=== PATIENT | female | born 1955 | race African-American/Black ===

== ENCOUNTER 2019-11-29 22:47 | Emergency (ER) | payer OTHER, SELFPAY ==
[2019-11-29 22:48] VITALS: BP 176/87; PULSE 69; RESP 18; TEMP 36.7; O2SAT 99
--- NOTE | 2019-11-29 23:09 | ED.EXTPRO ---
HPI - Extremity Problem General Chief complaint: Extremity Problem,Nontraumatic Stated complaint: NECK/SHOULDER Time Seen by Provider: 11/29/19 22:53 History of Present Illness HPI Narrative: Right sided neck pain for the past few days. Worse with certain positions. Prevents her from turning her head to the right. She was not able to sleep tonight due to the pain. She reports bilateral hand numbness, chronic. No weakness. No injury. Related Data Home Medications Medication Instructions Recorded Confirmed aspirin [Aspirin Low Dose] 81 mg PO DAILY 12/30/18 12/30/18 atorvastatin 10 mg PO DAILY 12/30/18 12/30/18 furosemide 40 mg PO DAILY 12/30/18 12/30/18 isosorbide mononitrate 30 mg PO DAILY 12/30/18 12/30/18 lisinopril 10 mg PO BID 12/30/18 12/30/18 Allergies Allergy/AdvReac Type Severity Reaction Status Date / Time No Known Allergies Allergy Verified 11/29/19 22:55 Review of Systems Review of Systems: All systems reviewed & are unremarkable except as noted in HPI and below Constitutional: Constitutional: Denies fever(s) Cardiovascular: Cardiovascular: Denies chest pain Respiratory: Respiratory: Denies dyspnea Neurologic: Reports vertigo, Reports numbness and Denies weakness PMFSH Past Medical History Medical History Healthy adult Surgical History Surgical History No pertinent past surgical history Social History Social History Smoking status: Never smoker Gender identity (if verbalized by the patient): Female Exam Const: General: no acute distress and alert Nutritional Appearance: obese Orientation/consciousness: patient oriented x3 HENMT: Head: normal to inspection Neck: Neck: normal visual inspection and no lymphadenopathy Chest: Chest palpation & inspection: no tenderness Resp: Effort & Inspection: normal respiratory effort Auscultation: clear to auscultation bilaterally, no rales, no rhonchi and no wheezes Cardio: Jugular venous distension: no JVD Rate: regular rate Rhythm: regular rhythm Heart sounds: no murmurs GI: Inspection: non-distended GI Palp: Yes Soft to palpation and No Tenderness to palpation present (GI) Back/Spine/Pelvis: Other: Right cervical paraspinal and trapezius tenderness Skin: General skin exam: normal color Neuro: General: patient oriented x3, moves all extremities and CN's II-XI intact bilaterally Speech: normal speech Extrem: General: no edema Psych: Appearance: well kempt Affect: normal affect Course Vital Signs Vital signs: Vital Signs Temperature 36.7 C 11/29/19 22:48 Pulse Rate 69 11/29/19 22:48 Respiratory Rate 18 11/29/19 22:48 Blood Pressure 176/87 H 11/29/19 22:48 Pulse Oximetry 99 11/29/19 22:48 Temperature 36.7 C 11/29/19 22:48 Pulse Rate 69 11/29/19 22:48 Respiratory Rate 18 11/29/19 22:48 Blood Pressure 176/87 H 11/29/19 22:48 Pulse Oximetry 99 11/29/19 22:48 MDM - Extremity (Nontraumatic) MDM Narrative Medical decision making narrative: Musculoskeletal neck pain with obvious spasm. I will treat acutely with valium and toradol and provide a prescription for flexeril. Medical Records Attestation: I reviewed the patient's medical records. Discharge Plan Discharge Clinical Impression: Torticollis Patient Disposition: Home, Self-Care Condition: Improved Instructions: Spasmodic Torticollis (ED) Prescriptions: New cyclobenzaprine 10 mg tablet 10 mg PO TID PRN (Reason: muscle spasm) Qty: 20 RF: 0 No Action furosemide 40 mg Tablet 40 mg PO DAILY RF: 0 atorvastatin 10 mg Tablet 10 mg PO DAILY RF: 0 isosorbide mononitrate 30 mg Tablet Extended Release 24 Hr 30 mg PO DAILY RF: 0 aspirin [Aspirin Low Dose] 81 mg Tablet,Delayed Release (Dr/Ec) 81 mg PO DAILY RF: 0 lisinopril
[2019-11-29] MEDS: KETOROLAC (*BKC) 60 MG/2 ML VIAL IM (23:13)
[2019-11-29] MEDS: diazePAM INJ (*CRX) 10 MG/2 ML SYRINGE 5 MG IM (23:14)
== END 2019-11-30 00:28 | disposition home or self-care (01) ==
LOC: ANHED 23:45
PROVIDERS: Emergency Provider Emergency Medicine
DX: M43.6 Torticollis (principal)
CPT/HCPCS: 96372; 99284; J1885; J3360

== ENCOUNTER 2020-08-27 12:16 | Emergency (ER) | payer MEDICARE, MEDICAID, SELFPAY ==
--- NOTE | ~2020-08-27 | XR_ITS ---
EXAMINATION: XR ankle RT 2V DATE: 08/27/2020 12:36 INDICATION: Right ankle pain. TECHNIQUE: 2 views of right ankle were obtained. COMPARISON: None. FINDINGS: Bone alignment is normal. No fracture. There is mild midfoot osteoarthritis. There are enth esophytes at the posterior and plantar aspects of calcaneal tuberosity. There is ankle soft tissue sw elling. IMPRESSION: 1. Mild midfoot osteoarthritis. Reviewed, dictated and finalized at location A.
[2020-08-27 12:16] VITALS: BP 167/98; PULSE 70; RESP 18; TEMP 36.1; O2SAT 100
[2020-08-27] MEDS: IBUPROFEN 600 MG TABLET PO (13:15)
--- NOTE | 2020-08-27 13:31 | ED.LOWEXIN ---
HPI - Extremity Injury (Lower) General Chief Complaint: Extremity Injury, Lower Stated Complaint: right ankle issues Time Seen by Provider: 08/27/20 12:23 History of Present Illness HPI Narrative: Patient is a 65-year-old female who presents ER with ankle swelling and pain. Ongoing over the last week. No fevers or chills or sweats. No known trauma. Pain increases with walking. Has been using a cane to ambulate. No redness. Pain improves mildly with topical pain ointments. Related Data Home Medications Medication Instructions Recorded Confirmed aspirin [Aspirin Low Dose] 81 mg PO DAILY 12/30/18 12/30/18 atorvastatin 10 mg PO DAILY 12/30/18 12/30/18 furosemide 40 mg PO DAILY 12/30/18 12/30/18 isosorbide mononitrate 30 mg PO DAILY 12/30/18 12/30/18 lisinopril 10 mg PO BID 12/30/18 12/30/18 Allergies Allergy/AdvReac Type Severity Reaction Status Date / Time No Known Allergies Allergy Verified 08/27/20 12:22 Review of Systems Constitutional: Constitutional: Denies chills, Denies fever(s) and Denies weakness Musculoskeletal: Musculoskeletal: Reports arthralgias, Reports joint swelling and Denies muscle cramps Neurologic: Denies focal weakness and Denies numbness PMFSH Past Medical History Medical History (Updated 08/27/20 @ 13:38 by Vito Seymour MD) CHF (congestive heart failure) Hyperlipidemia Hypertension Surgical History Surgical History No pertinent past surgical history Social History Social History Smoking status: Never smoker Gender identity (if verbalized by the patient): Female Exam Narrative: Exam Narrative: GENERAL: Well-appearing, well-nourished, and in no acute distress. HEAD: Normocephalic, atraumatic. EXTREMITIES: Normal range of motion. Swelling of right ankle medially with tenderness over the deltoid ligament. No redness. No bony tenderness. SKIN: Warm, dry, no rash. NEURO: Alert and oriented x3. PSYCH: Normal mood and affect. Course Course Emergency Course: Sprain versus arthritic flare. Recommend R.I.C.E. therapy and scheduled anti-inflammatories. Vital Signs Vital signs: Vital Signs Temperature 96.9 F L 08/27/20 12:16 Pulse Rate 70 08/27/20 12:16 Respiratory Rate 18 08/27/20 12:16 Blood Pressure 167/98 H 08/27/20 12:16 Pulse Oximetry 100 08/27/20 12:16 Temperature 96.9 F L 08/27/20 12:16 Pulse Rate 70 08/27/20 12:16 Respiratory Rate 18 08/27/20 12:16 Blood Pressure 167/98 H 08/27/20 12:16 Pulse Oximetry 100 08/27/20 12:16 MDM - Extremity Injury (Lower) Imaging Data Radiologist's impression: ITS Impressions Ankle X-Ray 08/27/20 12:40 IMPRESSION: 1. Mild midfoot osteoarthritis. Discharge Plan Discharge Clinical Impression: Ankle pain Patient Disposition: Home, Self-Care Condition: Stable Instructions: R.I.C.E. Treatment (ED) Additional Instructions: Return to the ER if your ankle becomes red and hot, you have fever over 100.4 ?F, you suffer new injury. Prescriptions: New ibuprofen 600 mg tablet 600 mg PO TID PRN (Reason: pain) Qty: 14 RF: 0 No Action furosemide 40 mg Tablet 40 mg PO DAILY RF: 0 atorvastatin 10 mg Tablet 10 mg PO DAILY RF: 0 isosorbide mononitrate 30 mg Tablet Extended Release 24 Hr 30 mg PO DAILY RF: 0 aspirin [Aspirin Low Dose] 81 mg Tablet,Delayed Release (Dr/Ec) 81 mg PO DAILY RF: 0 lisinopril 10 mg Tablet 10 mg PO BID RF: 0 meclizine 25 mg tablet 25 mg PO TID PRN (Reason: dizziness) Qty: 14 RF: 0 cyclobenzaprine 10 mg tablet 10 mg PO TID PRN (Reason: muscle spasm) Qty: 20 RF: 0 Follow-up/Referrals: Crystal Bustillos [Other] - 1 Week
== END 2020-08-27 13:57 | disposition home or self-care (01) ==
PROVIDERS: Emergency Provider Emergency Medicine
DX: M25.571 Pain in right ankle and joints of right foot (principal); I50.9 Heart failure, unspecified; I11.0 Hypertensive heart disease with heart failure; E78.5 Hyperlipidemia, unspecified; Z79.82 Long term (current) use of aspirin; M19.071 Primary osteoarthritis, right ankle and foot
CPT/HCPCS: 73600; 99283; A9270

== ENCOUNTER 2020-10-12 09:28 | Outpatient (CLI) | payer MEDICARE, MEDICAID, SELFPAY ==
[2020-10-12 11:06] LABS: Add Urine Microscopic? YES; Appearance Urine Clear (Clear); Bilirubin Urine Negative (Negative); Blood Urine Negative (Negative); Color Urine Straw (Yellow); Glucose Urine UA Negative (Negative); Ketones Urine Negative (Negative); Leukocyte Esterase Ur Trace LEU/UL (NEGATIVE); Mucus Urine Rare /lpf; Nitrate Urine Negative (Negative); Protein Urine Negative (Negative); RBC Urine 0-2 /hpf (0-2); Specific Grav Ur 1.008 (1.001-1.035); Squamous Epithelial Cell Urine Rare /hpf (Few); Urobilinogen Urine Negative mg/dL (<2.0); WBC Urine 0-3 /hpf (0-3)
== END 2020-10-12 09:29 | disposition home or self-care (01) ==
DX: R10.9 Unspecified abdominal pain (principal)
CPT/HCPCS: 81001

== ENCOUNTER 2020-10-27 13:46 | Outpatient (CLI) | payer MEDICARE, MEDICAID, SELFPAY | END 2020-10-27 13:47 | disposition home or self-care (01) | LOC: ANHAUDIO 13:47 | PROVIDERS: Visit Provider Otolaryngology | DX: H90.3 Sensorineural hearing loss, bilateral (principal) | CPT/HCPCS: 92552; 92556; 92567 ==

== ENCOUNTER 2020-12-27 11:00 | Outpatient (CLI) | payer MEDICARE, MEDICAID, SELFPAY ==
[2020-12-27 11:42] LABS: Anion Gap 4 mmol/L (8-16); Blood Urea Nitrogen 15 mg/dL (7-17); Calcium 9.8 mg/dL (8.4-10.2); Carbon Dioxide 31 mmol/L (22-30); Chloride 109 mmol/L (98-107); Estimated Glomerular Filt Rate > 60; Glucose 97 mg/dL (65-110); Magnesium 2.2 mg/dL (1.6-2.3); Potassium 4.2 mmol/L (3.4-5.0); Sodium 144 mmol/L (137-145)
== END 2020-12-27 11:01 | disposition home or self-care (01) ==
PROVIDERS: Visit Provider Specialist
DX: I50.22 Chronic systolic (congestive) heart failure (principal); I10 Essential (primary) hypertension
CPT/HCPCS: 36415; 80048; 83735

== ENCOUNTER 2022-02-17 10:56 | Emergency (ER) | payer MEDICARE, MEDICAID, SELFPAY ==
[2022-02-17 11:20] VITALS: BP 98/86; PULSE 71; RESP 18; TEMP 36.4; O2SAT 100
[2022-02-17] MEDS: HYDROcodone/acetaminophen (*CRX) 5-325 MG TABLET 1 TAB PO (12:32)
[2022-02-17 13:21] LABS: Influenza A QL RT-PCR Negative (Negative); Influenza B QL RT-PCR Negative (Negative); SARS-CoV-2 RNA PCR Negative
--- NOTE | 2022-02-17 14:27 | ED.EAR ---
HPI - Ear Problem General Chief complaint: Ear Stated complaint: left ear and neck pain Time Seen by Provider: 02/17/22 11:59 History of Present Illness HPI Narrative: Patient is a 66-year-old female who presents ER with left ear pain. Aching. Radiates into left neck and jaw. No chest pain or exertional component. Associate with sinus congestion. No dizziness. Related Data Home Medications Medication Instructions Recorded Confirmed aspirin 81 mg tablet,delayed 81 mg PO DAILY 12/30/18 12/30/18 release (Jeana Low Dose Aspirin) atorvastatin 10 mg tablet 10 mg PO DAILY 12/30/18 12/30/18 furosemide 40 mg tablet 40 mg PO DAILY 12/30/18 12/30/18 isosorbide mononitrate 30 mg 30 mg PO DAILY 12/30/18 12/30/18 tablet,extended release 24 hr lisinopril 10 mg tablet 10 mg PO BID 12/30/18 12/30/18 Allergies Allergy/AdvReac Type Severity Reaction Status Date / Time No Known Allergies Allergy Verified 08/27/20 12:22 Review of Systems Review of Systems: All systems reviewed & are unremarkable except as noted in HPI and below Constitutional: Constitutional: Denies chills, Denies fatigue and Denies fever(s) ENT: Denies dizziness, Reports nasal congestion and Denies sore throat Comments: Ear fullness Respiratory: Respiratory: Denies cough and Denies dyspnea Gastrointestinal: Gastrointestinal: Denies nausea and Denies vomiting PMFSH Past Medical History Medical History (Updated 02/17/22 @ 14:31 by Vito Seymour MD) CHF (congestive heart failure) Hyperlipidemia Hypertension Surgical History Surgical History No pertinent past surgical history Social History Social History Smoking status: Never smoker Gender identity (if verbalized by the patient): Female Exam Narrative: GENERAL: Well-appearing, well-nourished, and in no acute distress. HEAD: Normocephalic, atraumatic. EYES: PERRL and EOMI. ENT: Mucous membranes moist. Normal TMs bilaterally. NECK: Supple. Mild tenderness over left trapezius muscle. CHEST: Clear to auscultation. No respiratory distress. HEART: Regular rate and rhythm. Normal peripheral pulses. EXTREMITIES: Normal range of motion. No edema. NEURO: Alert and oriented x3. PSYCH: Normal mood and affect. Course Course Emergency Course: Areas manipulated and pressure release. Patient longer has pressure in her ear. Pain improved in the shoulder with [place]. Discharge home. Vital Signs Vital signs: Vital Signs Temperature 97.5 F L 02/17/22 11:20 Pulse Rate 71 02/17/22 11:20 Respiratory Rate 18 02/17/22 11:20 Blood Pressure 98/86 L 02/17/22 11:20 Pulse Oximetry 100 02/17/22 11:20 Oxygen Delivery Room Air 02/17/22 11:20 Temperature 97.5 F L 02/17/22 11:20 Pulse Rate 71 02/17/22 11:20 Respiratory Rate 18 02/17/22 11:20 Blood Pressure 98/86 L 02/17/22 11:20 Pulse Oximetry 100 02/17/22 11:20 Oxygen Delivery Room Air 02/17/22 11:20 Medical Decision Making Vital Signs Vital Signs: Vital Signs Temperature 97.5 F L 02/17/22 11:20 Pulse Rate 71 02/17/22 11:20 Respiratory Rate 18 02/17/22 11:20 Blood Pressure 98/86 L 02/17/22 11:20 Pulse Oximetry 100 02/17/22 11:20 Oxygen Delivery Room Air 02/17/22 11:20 Temperature 97.5 F L 02/17/22 11:20 Pulse Rate 71 02/17/22 11:20 Respiratory Rate 18 02/17/22 11:20 Blood Pressure 98/86 L 02/17/22 11:20 Pulse Oximetry 100 02/17/22 11:20 Oxygen Delivery Room Air 02/17/22 11:20 Lab Data Labs: Lab Results 02/17/22 Range/Units 12:35 Influenza A (RT-PCR) Negative (Negative) Influenza B (RT-PCR) Negative (Negative) SARS-CoV-2 RNA (RT-PCR) Negative Discharge Plan Discharge Clinical Impression: Otalgia, Cramp in muscle Patient Disposition: Home, Self-Care Condition: Stable Instructions: Earache (ED), Mu
== END 2022-02-17 15:13 | disposition home or self-care (01) ==
PROVIDERS: Emergency Provider Emergency Medicine
DX: H92.02 Otalgia, left ear (principal); R25.2 Cramp and spasm; Z20.822 Contact with and (suspected) exposure to COVID-19; I11.0 Hypertensive heart disease with heart failure; I50.9 Heart failure, unspecified; E78.5 Hyperlipidemia, unspecified
CPT/HCPCS: 87636; 99283; A9270

== ENCOUNTER 2022-02-21 10:39 | Emergency (ER) | payer MEDICARE, MEDICAID, SELFPAY ==
[2022-02-21 10:49] VITALS: BP 140/74; PULSE 77; RESP 16; TEMP 36.3; O2SAT 100
--- NOTE | 2022-02-21 10:59 | ED.URI ---
HPI - URI/Sore Throat General Chief Complaint: Upper Respiratory Infection Stated Complaint: Right Eye Irritation/ Sinus Time Seen by Provider: 02/21/22 10:55 Source: patient Mode of arrival: ambulatory Limitations: no limitations History of Present Illness HPI Narrative: Gretchen is a 66-year-old female patient presenting to the clinic today with complaints of right eye drainage and irritation as well as sinus pressure, nasal congestion, and headache. She reports the sinus symptoms have been going on for approximately 2 weeks however the eye drainage has only been going on for approximately 3 days. She denies any fever or chills. MD elicited complaint: rhinorrhea, nasal congestion, sinus pain and other ( conjunctivitis) Related Data Home Medications Medication Instructions Recorded Confirmed aspirin 81 mg tablet,delayed 81 mg PO DAILY 12/30/18 02/21/22 release (Jeana Low Dose Aspirin) atorvastatin 10 mg tablet 10 mg PO DAILY 12/30/18 02/21/22 furosemide 40 mg tablet 40 mg PO DAILY 12/30/18 02/21/22 isosorbide mononitrate 30 mg 30 mg PO DAILY 12/30/18 02/21/22 tablet,extended release 24 hr lisinopril 10 mg tablet 10 mg PO BID 12/30/18 02/21/22 Allergies Allergy/AdvReac Type Severity Reaction Status Date / Time No Known Allergies Allergy Verified 02/21/22 10:51 Review of Systems Review of Systems: Pertinent positives per HPI. Patient denies any fever, chills, rash, headache, visual changes, dizziness, cough, shortness of breath, chest pain, palpitations, nausea, vomiting, diarrhea, constipation, abdominal pain, or any urinary issues. PMF Past Medical History Medical History CHF (congestive heart failure) Hyperlipidemia Hypertension Surgical History Surgical History No pertinent past surgical history Social History Social History Smoking status: Never smoker Gender identity (if verbalized by the patient): Female Comments At the time of my signature, I reviewed and agree with the nursing past medical, surgical, social, and family history. There is no relevant family history pertinent to the patient complaint. Exam Narrative: General: Well-developed, well nourished, in no apparent distress Head: Normocephalic, atraumatic Eyes: Pupils equally round and reactive to light bilaterally, EOM intact, left sclera and conjunctive clear, right sclera and conjunctiva injected with yellow mucoid purulent discharge, left lids normal, right lids swelling Ears: TMs intact and clear, ear canals clear, no drainage, grossly hearing normal. Nose: Nares patent, green nasal drainage, moderate to severe inflammation, maxillary and frontal sinus tenderness. Mouth: Oral pharynx without lesions or masses, good dentition, MMM. postnasal drip Neck: Supple, trachea midline, no enlargement of anterior or posterior cervical nodes, no thyroid masses or goiter palpable. Cardio: Regular rate and rhythm, s1 and s2 normal, no murmur appreciated. Resp: Clear to auscultation bilaterally, no rhonchi, rales, wheezing or rubs Course Course Emergency Course: Portions of this record may have been created with voice recognition software. Level of Care: Express Care Visit Vital Signs Vital signs: Vital Signs Temperature 36.3 C L 02/21/22 10:49 Pulse Rate 77 02/21/22 10:49 Respiratory Rate 16 02/21/22 10:49 Blood Pressure 140/74 02/21/22 10:49 Pulse Oximetry 100 02/21/22 10:49 Oxygen Delivery Room Air 02/21/22 10:49 Temperature 36.3 C L 02/21/22 10:49 Pulse Rate 77 02/21/22 10:49 Respiratory Rate 16 02/21/22 10:49 Blood Pressure 140/74 02/21/22 10:49 Pulse Oximetry 100 02/21/22 10:49 Oxygen Delivery Room Air 02/21/22 10:49 Vital signs reviewed MDM - URI/Sore Throat Differential Diagnosis Diff
== END 2022-02-21 11:08 | disposition home or self-care (01) ==
PROVIDERS: Emergency Provider Nurse Practitioner Family
DX: J01.90 Acute sinusitis, unspecified (principal); H10.9 Unspecified conjunctivitis; I11.0 Hypertensive heart disease with heart failure; I50.9 Heart failure, unspecified; E78.5 Hyperlipidemia, unspecified
CPT/HCPCS: 99213; G0463

== ENCOUNTER 2022-04-23 11:33 | Emergency (ER) | payer MEDICARE, MEDICAID, SELFPAY ==
--- NOTE | ~2022-04-23 | XR_ITS ---
EXAMINATION: XR chest 1V portable INDICATION: Cough and congestion TECHNIQUE: Portable AP chest at 1305 hours COMPARISON: None available FINDINGS: There are mild diffuse airspace opacities of the lungs. No pleural effusion or pneumothorax . The cardiomediastinal silhouette is normal for technique. IMPRESSION: 1. Mild diffuse lung disease, consistent with atelectasis versus pneumonia versus pulmonary edema. Reviewed, dictated and finalized at location A. [employer] TECH IMPRESSION: 1. Mild diffuse lung disease, consistent with atelectasis versus pneumonia vers us pulmonary edema.
[2022-04-23 11:45] VITALS: BP 156/97; PULSE 72; RESP 20; TEMP 36.6; O2SAT 99
[2022-04-23 13:18] VITALS: O2SAT 98
--- NOTE | 2022-04-23 13:18 | ED.URI ---
HPI - URI/Sore Throat General Chief Complaint: Upper Respiratory Infection Stated Complaint: head congestion/cough Time Seen by Provider: 04/23/22 12:51 Source: patient, RN notes reviewed and old records reviewed Mode of arrival: ambulatory Limitations: no limitations History of Present Illness HPI Narrative: This is a 67 year old female with history of CHF and hyperlipidemia who presents for evaluation of sinus congestion and cough. She reports sinus congestion and pressure for 3 weeks. Her symptoms have worsened over the past 1 week. She reports greenish nasal discharge and bilateral ear pain. She also reports productive cough with greenish phlegm. She denies chest pain. She reports shortness of breath because she can not breath through her nose. She denies fever or chills. She was prescribed antibiotics 2 months ago for rhinosinusitis. She is also using Flonase for her symptoms. Related Data Home Medications Medication Instructions Recorded Confirmed aspirin 81 mg tablet,delayed 81 mg PO DAILY 12/30/18 02/21/22 release (Jeana Low Dose Aspirin) atorvastatin 10 mg tablet 10 mg PO DAILY 12/30/18 02/21/22 furosemide 40 mg tablet 40 mg PO DAILY 12/30/18 02/21/22 isosorbide mononitrate 30 mg 30 mg PO DAILY 12/30/18 02/21/22 tablet,extended release 24 hr lisinopril 10 mg tablet 10 mg PO BID 12/30/18 02/21/22 Allergies Allergy/AdvReac Type Severity Reaction Status Date / Time No Known Allergies Allergy Verified 02/21/22 10:51 Review of Systems Constitutional: Constitutional: Denies weakness ENT: Denies vertigo, Reports nasal congestion and Reports sore throat Cardiovascular: Cardiovascular: Denies syncope, Denies rapid heart rate, Denies irregular heart rhythm, Denies leg edema and Denies dyspnea Respiratory: Respiratory: Reports chest congestion, Reports cough, Denies hemoptysis, Denies excessive phlegm production and Denies dyspnea Gastrointestinal: Gastrointestinal: Denies abdominal pain, Denies hematochezia, Denies diarrhea and Denies vomiting Genitourinary: Genitourinary: Denies hematuria and Denies dysuria Musculoskeletal: Musculoskeletal: Denies joint swelling, Denies loss of height and Denies muscle weakness Neurologic: Denies syncope, Denies focal weakness and Denies weakness PMFSH Past Medical History Medical History CHF (congestive heart failure) Hyperlipidemia Hypertension Surgical History Surgical History No pertinent past surgical history Social History Social History Smoking status: Never smoker Gender identity (if verbalized by the patient): Female Exam Const: General: alert Nutritional Appearance: well nourished Orientation/consciousness: patient oriented x3 Limitations: no limitations HENMT: Head: normal to inspection Ears: TM abnormal wth effusion serous on the right and erythematous Face/Nose/Sinus: Abnormal mucous membranes and turbinates present boggy bilateral and pale Face and sinus: sinus tenderness maxillary (right) Mouth: Yes Normal oral and palatal mucosa present, Yes lip normal and Yes moist mucous membranes Throat: posterior oropharynx normal and uvula midline Eyes: Pupils: Equal, round and reactive pupils present EOM: EOMs intact bilaterally Resp: Effort & Inspection: normal respiratory effort Auscultation: clear to auscultation bilaterally Cardio: Rate: regular rate Rhythm: regular rhythm Heart sounds: no murmurs GI: GI Palp: Yes Soft to palpation, No Tenderness to palpation present (GI), No Guarding due to palpation present (GI) and No Rigid due to palpation Auscultation: normal bowel sounds Back/Spine/Pelvis: Back: no CVA tenderness Skin: General skin exam: normal color Rashes: no rashes Neuro: General: patient oriented x3, moves all extremities and CN's II-XI intact bilaterally
--- NOTE | 2022-04-23 13:19 | ECG_ITS ---
Measurements Intervals [place] Rate: 64 P: 48 AR: 179 QRS: -11 QRSD: 116 T: 208 QT: 447 QTc: 464 Interpretive Statements SINUS RHYTHM LEFT VENTRICULAR HYPERTROPHY AND ST-T CHANGE BORDERLINE ECG COMPARED TO ECG 12/30/2018 20:31:32 NO SIGNIFICANT CHANGES Electronically Signed On 04-23-2022 13:40:58 C T TECH by Oneil Jimenez D.O.
[2022-04-23 13:25] LABS: Influenza A QL RT-PCR Negative (Negative); Influenza B QL RT-PCR Negative (Negative); SARS-CoV-2 RNA PCR Negative
[2022-04-23 14:15] LABS: Basophils Absolute Auto 0.1 K/mm3 (0.0-0.1); Basophils Percent Auto 1.2 % (0.2-1.2); Eosinophils Absolute Auto 0.4 K/mm3 (0-0.3); Eosinophils Percent Auto 6.1 % (0-4.4); Hemoglobin 13.5 g/dL (12.0-15.0); Immature Granulocyte Absolute 0.02 K/mm3 (0.00-0.031); Immature Granulocyte Percent A 0.3 % (0-0.5); Lymphocytes Absolute Auto 1.74 K/mm3 (0.9-3.2); Lymphocytes Percent Auto 28.6 % (18.3-44.2); Mean Corpuscular HGB Conc 32.1 g/dl (32-36); Mean Platelet Volume 10.2 fl (7.4-10.4); Monocytes Absolute Auto 0.6 K/mm3 (0.1-0.6); Neutrophils Absolute Auto 3.3 K/mm3 (1.3-6.7); Neutrophils Percent Auto 53.8 % (45.5-73.1); Platelet Count Result 274 k/mm3 (150-375); Red Blood Count 4.83 M/mm3 (4.2-5.4); Red Cell Distribution Width 14.6 % (11.5-14.5); White Blood Count 6.1 K/mm3 (4.5-10.0)
[2022-04-23 14:33] LABS: Alanine Aminotransferase 16 U/L (6-35); Albumin Level 4.5 g/dL (3.5-5.1); Alkaline Phosphatase 76 U/L (38-126); Anion Gap 5 mmol/L (8-16); Aspartate Amino Transferase 28 U/L (14-36); Bilirubin,Total 0.8 mg/dL (0.2-1.3); Blood Urea Nitrogen 12 mg/dL (7-17); Calcium 9.4 mg/dL (8.4-10.2); Carbon Dioxide 28 mmol/L (22-30); Chloride 104 mmol/L (98-107); Estimated CRCL calculation 66 ml/min; Estimated Glomerular Filt Rate > 60; Glucose 91 mg/dL (65-110); Potassium 3.9 mmol/L (3.4-5.0); Sodium 137 mmol/L (137-145)
[2022-04-23 14:41] LABS: NT Pro B Type Natriuretic Pept 521 pg/mL (19.9-100); Troponin I < 0.012 ng/mL (0.000-0.034)
[2022-04-23 15:09] VITALS: BP 158/99; PULSE 65; RESP 14; O2SAT 100
== END 2022-04-23 15:19 | disposition home or self-care (01) ==
PROVIDERS: Emergency Medicine; Emergency Provider General Practice
DX: J06.9 Acute upper respiratory infection, unspecified (principal); H66.90 Otitis media, unspecified, unspecified ear; R06.02 Shortness of breath; E78.5 Hyperlipidemia, unspecified; I11.0 Hypertensive heart disease with heart failure; I50.9 Heart failure, unspecified; Z79.82 Long term (current) use of aspirin; Z20.822 Contact with and (suspected) exposure to COVID-19
CPT/HCPCS: 36415; 71045; 80053; 83880; 84484; 85025; 87636; 93005; 99283

== ENCOUNTER 2023-06-20 07:35 | Emergency (ER) | payer MEDICARE, MEDICAID, SELFPAY ==
--- NOTE | ~2023-06-20 | XR_ITS ---
XR lumbar spine 2-3V DATE: 06/20/2023 08:32 INDICATION: Low back pain radiating to both legs TECHNIQUE: AP, lateral, coned lateral lumbosacral views COMPARISON: None FINDINGS: There is prominent degenerative spurring of the lower thoracic aortic and particularly the lumbar spine. There is severe degenerative indices and L5-S1. The lumbar interspaces are relatively well preserved. There is degenerative change apologize vertically in the lower lumbar and lumbosacral area with assoc iated grade 1 anterolisthesis at L4-5. No fracture or bone destruction is noted. Included lower thoracic and lumbar pedicles appear intact. The sacral iliac joints are unremarkable. IMPRESSION: Severe degenerative disease of L5-S1 Grade 1 anterolisthesis at L4-5 due to degenerative change of the apophyseal joints and about degener ative spurring of the lower thoracic and lumbar spine Reviewed, dictated and finalized at location A. IMPRESSION: Severe degenerative disease of L5-S1 Grade 1 anterolisthesis at L4-5 due to degenerative change of the apophyseal isai ints and about degenerative spurring of the lower thoracic and lumbar spine
[2023-06-20 07:38] VITALS: BP 161/71; PULSE 76; RESP 17; TEMP 36.4; O2SAT 100
--- NOTE | 2023-06-20 08:27 | PC.NURSE ---
pt in XRAY at this time.
[2023-06-20 08:47] LABS: Basophils Absolute Auto 0.1 K/mm3 (0.0-0.1); Basophils Percent Auto 0.9 % (0.2-1.2); Eosinophils Absolute Auto 0.2 K/mm3 (0-0.3); Eosinophils Percent Auto 3.1 % (0-4.4); Hematocrit 42.4 % (37.0-47.0); Hemoglobin 13.3 g/dL (12.0-15.0); Immature Granulocyte Absolute 0.01 K/mm3 (0.00-0.031); Immature Granulocyte Percent A 0.2 % (0-0.5); Lymphocytes Absolute Auto 1.91 K/mm3 (0.9-3.2); Lymphocytes Percent Auto 33.2 % (18.3-44.2); Mean Corpuscular HGB Conc 31.4 g/dl (32-36); Mean Corpuscular Hemoglobin 27.6 pg (26-34); Mean Platelet Volume 10.3 fl (7.4-10.4); Monocytes Absolute Auto 0.5 K/mm3 (0.1-0.6); Monocytes Percent Auto 8.9 % (2.6-8.5); Neutrophils Absolute Auto 3.1 K/mm3 (1.3-6.7); Neutrophils Percent Auto 53.7 % (45.5-73.1); Platelet Count Result 291 k/mm3 (150-375); Red Blood Count 4.82 M/mm3 (4.2-5.4); Red Cell Distribution Width 14.4 % (11.5-14.5); White Blood Count 5.8 K/mm3 (4.5-10.0)
[2023-06-20] MEDS: diazePAM INJ (*CRX) 10 MG/2 ML SYRINGE 5 MG IV PUSH (08:49)
[2023-06-20] MEDS: KETOROLAC 30 MG/ML VIAL (*BKC) IV PUSH (08:49)
[2023-06-20 08:56] LABS: Anion Gap 5 mmol/L (4-12); Blood Urea Nitrogen 15 mg/dL (7-17); Calcium 9.4 mg/dL (8.4-10.2); Carbon Dioxide 28 mmol/L (22-30); Chloride 110 mmol/L (98-107); Estimated CRCL calculation 49 ml/min; Estimated Glomerular Filt Rate > 60; Glucose 102 mg/dL (65-110); Potassium 3.9 mmol/L (3.4-5.0); Sodium 143 mmol/L (137-145)
[2023-06-20 09:29] VITALS: BP 167/88; PULSE 74; RESP 18; O2SAT 98
--- NOTE | 2023-06-20 10:29 | ED.GENADULT ---
HPI - General Adult General Chief complaint: Abdominal Pain Stated complaint: falnk pain radiating down leg Time Seen by Provider: 06/20/23 07:52 History of Present Illness HPI narrative: Patient is a 68-year-old female who presents ER with right-sided low back pain. Radiates down her leg. No numbness or tingling. No difficulty with urination/ defecation. No fevers or chills or sweats. No known trauma. No falls. She has had this pain in the past. She has found no alleviating factors but has not tried any oral pain medication. Related Data Home Medications Medication Instructions Recorded Confirmed aspirin 81 mg tablet,delayed 81 mg PO DAILY 12/30/18 02/21/22 release (Jeana Low Dose Aspirin) atorvastatin 10 mg tablet 10 mg PO DAILY 12/30/18 02/21/22 furosemide 40 mg tablet 40 mg PO DAILY 12/30/18 02/21/22 isosorbide mononitrate 30 mg 30 mg PO DAILY 12/30/18 02/21/22 tablet,extended release 24 hr lisinopril 10 mg tablet 10 mg PO BID 12/30/18 02/21/22 Allergies Allergy/AdvReac Type Severity Reaction Status Date / Time No Known Allergies Allergy Verified 06/20/23 07:52 Review of Systems Review of Systems: All systems reviewed & are unremarkable except as noted in HPI and below Constitutional: Constitutional: Denies chills, Denies fatigue and Denies fever(s) ENT: Reports system reviewed and no additional complaints, except as documented Cardiovascular: Cardiovascular: Reports no additional cardiovascular complaints Respiratory: Respiratory: Reports no additional respiratory complaints Musculoskeletal: Musculoskeletal: Reports back pain, Denies arthralgias and Denies joint swelling Neurologic: Denies focal weakness and Denies numbness PMFSH Past Medical History Medical History CHF (congestive heart failure) Hyperlipidemia Hypertension Surgical History Surgical History No pertinent past surgical history Social History Social History Smoking status: Never smoker Gender identity (if verbalized by the patient): Female Exam Narrative: GENERAL: Well-appearing, well-nourished, and in no acute distress. HEAD: Normocephalic, atraumatic. ENT: Mucous membranes moist. CHEST: Clear to auscultation. No respiratory distress. HEART: Regular rate and rhythm. Normal peripheral pulses. ABDOMEN: Soft, nontender, nondistended. Back: No reproducible midline tenderness at T/L-spine. There is right-sided tenderness near the buttock at the SI region that causes significant discomfort for patient. EXTREMITIES: Normal range of motion. No edema. SKIN: Warm, dry, no rash. NEURO: No focal deficits. Alert and oriented x3. Course Course Emergency Course: Pain improved but not fully resolved with Toradol and Valium. Discussed imaging results. Discharge home with supportive medication. Vital Signs Vital signs: Vital Signs Temperature 97.6 F 06/20/23 07:38 Pulse Rate 76 06/20/23 07:38 Respiratory Rate 17 06/20/23 07:38 Blood Pressure 161/71 H 06/20/23 07:38 Pulse Oximetry 100 06/20/23 07:38 Oxygen Delivery Room Air 06/20/23 07:38 Temperature 97.6 F 06/20/23 07:38 Pulse Rate 74 06/20/23 09:29 Respiratory Rate 18 06/20/23 09:29 Blood Pressure 167/88 H 06/20/23 09:29 Pulse Oximetry 98 06/20/23 09:29 Oxygen Delivery Room Air 06/20/23 07:38 Medical Decision Making Vital Signs Vital Signs: Vital Signs Temperature 97.6 F 06/20/23 07:38 Pulse Rate 76 06/20/23 07:38 Respiratory Rate 17 06/20/23 07:38 Blood Pressure 161/71 H 06/20/23 07:38 Pulse Oximetry 100 06/20/23 07:38 Oxygen Delivery Room Air 06/20/23 07:38 Temperature 97.6 F 06/20/23 07:38 Pulse Rate 74 06/20/23 09:29 Respiratory Rate 18 06/20/23 09:29 Blood Pressure 167/88 H 06/20/23 09:29 Pulse
[2023-06-20 10:30] VITALS: BP 158/90; PULSE 67; RESP 15; O2SAT 98
== END 2023-06-20 11:08 | disposition home or self-care (01) ==
PROVIDERS: Emergency Provider Emergency Medicine
DX: M54.41 Lumbago with sciatica, right side (principal); I50.9 Heart failure, unspecified; E78.5 Hyperlipidemia, unspecified; I11.0 Hypertensive heart disease with heart failure; Z79.82 Long term (current) use of aspirin; M51.37 Other intervertebral disc degeneration, lumbosacral region
CPT/HCPCS: 36415; 72100; 80048; 85025; 96374; 96375; 99284; J1885; J3360

== ENCOUNTER 2023-07-07 05:59 | Emergency (ER) | payer MEDICARE, MEDICAID, SELFPAY ==
--- NOTE | ~2023-07-07 | XR_ITS ---
EXAMINATION: XR chest 2V DATE: 07/07/2023 06:15 INDICATION: Shortness of breath. TECHNIQUE: Frontal and lateral views of the chest were obtained. COMPARISON: Chest single view 04/23/2022 FINDINGS: There is a diffuse interstitial pattern, consistent with mild pulmonary edema. There are ai rspace opacities at the lung bases. No pneumothorax or pleural effusion. Cardiomegaly is noted. IMPRESSION: 1. Mild pulmonary edema. 2. Airspace opacities at the lung bases, consistent with atelectasis versus pneumonia. 3. Cardiomegaly. Reviewed, dictated and finalized at location A. IMPRESSION: 1. Mild pulmonary edema. 2. Airspace opacities at the lung bases, consistent with atelectasis versus pne umonia. 3. Cardiomegaly.
[2023-07-07 05:55] VITALS: BP 159/106; PULSE 89; RESP 25; TEMP 36.6; O2SAT 96
[2023-07-07 05:57] VITALS: PULSE 89; O2SAT 96
[2023-07-07 06:13] LABS: Basophils Absolute Auto 0.1 K/mm3 (0.0-0.1); Basophils Percent Auto 1.2 % (0.2-1.2); Eosinophils Absolute Auto 0.3 K/mm3 (0-0.3); Eosinophils Percent Auto 5.5 % (0-4.4); Hematocrit 41.9 % (37.0-47.0); Hemoglobin 13.3 g/dL (12.0-15.0); Immature Granulocyte Absolute 0.01 K/mm3 (0.00-0.031); Immature Granulocyte Percent A 0.2 % (0-0.5); Lymphocytes Absolute Auto 1.96 K/mm3 (0.9-3.2); Lymphocytes Percent Auto 39.8 % (18.3-44.2); Mean Corpuscular HGB Conc 31.7 g/dl (32-36); Mean Corpuscular Hemoglobin 27.5 pg (26-34); Mean Corpuscular Volume 86.6 fl (80-100); Monocytes Absolute Auto 0.4 K/mm3 (0.1-0.6); Monocytes Percent Auto 7.7 % (2.6-8.5); Neutrophils Absolute Auto 2.2 K/mm3 (1.3-6.7); Neutrophils Percent Auto 45.6 % (45.5-73.1); Platelet Count Result 372 k/mm3 (150-375); Red Blood Count 4.84 M/mm3 (4.2-5.4); Red Cell Distribution Width 14.4 % (11.5-14.5); White Blood Count 4.9 K/mm3 (4.5-10.0)
[2023-07-07 06:21] LABS: Alanine Aminotransferase 36 U/L (6-35); Albumin Level 4.2 g/dL (3.5-5.1); Alkaline Phosphatase 99 U/L (38-126); Anion Gap 8 mmol/L (4-12); Aspartate Amino Transferase 50 U/L (14-36); Bilirubin,Total 0.8 mg/dL (0.2-1.3); Blood Urea Nitrogen 16 mg/dL (7-17); Calcium 9.3 mg/dL (8.4-10.2); Carbon Dioxide 22 mmol/L (22-30); Chloride 111 mmol/L (98-107); Estimated Glomerular Filt Rate > 60; Glucose 114 mg/dL (65-110); Potassium 3.6 mmol/L (3.4-5.0); Sodium 141 mmol/L (137-145)
--- NOTE | 2023-07-07 06:52 | ED.GENADULT ---
HPI - General Adult General Chief complaint: Shortness of Breath/Dyspnea Stated complaint: SOB Time Seen by Provider: 07/07/23 06:49 History of Present Illness HPI narrative: Patient is a 68-year-old female who presents to the emergency department this morning complaining of shortness of breath. Patient admits that she does have a history of asthma but states that despite using her inhaler she feels as though her shortness of breath is not improving. Patient admits to mild cough that is sometimes productive. She denies any fevers or chills at home, denies any chest pain, nausea or vomiting. Patient also denies any sick contacts at home. There are no additional modifying, alleviating, or precipitating factors at this time. Related Data Home Medications Medication Instructions Recorded Confirmed aspirin 81 mg tablet,delayed 81 mg PO DAILY 12/30/18 02/21/22 release (Jeana Low Dose Aspirin) atorvastatin 10 mg tablet 10 mg PO DAILY 12/30/18 02/21/22 furosemide 40 mg tablet 40 mg PO DAILY 12/30/18 02/21/22 isosorbide mononitrate 30 mg 30 mg PO DAILY 12/30/18 02/21/22 tablet,extended release 24 hr lisinopril 10 mg tablet 10 mg PO BID 12/30/18 02/21/22 Allergies Allergy/AdvReac Type Severity Reaction Status Date / Time No Known Allergies Allergy Verified 07/07/23 06:00 Review of Systems Review of Systems: All systems are reviewed and are negative unless stated otherwise in the HPI. [facility] Past Medical History Medical History CHF (congestive heart failure) Hyperlipidemia Hypertension Surgical History Surgical History No pertinent past surgical history Social History Social History Smoking status: Never smoker Gender identity (if verbalized by the patient): Female Exam Narrative: General: Alert, awake, afebrile, in no acute distress. HEENT: PERRL, no rhinorrhea, no post nasal drip, oropharynx clear. Neck: Trachea midline, no JVD, no lymphadenopathy. Cardiovascular: Regular rate and rhythm, no murmurs, rubs or gallops, no peripheral edema. Respiratory: Clear to auscultation bilaterally, no tachypnea, no wheezing, no rhonchi, no rubs, no respiratory distress. Abdomen: Soft, nontender, nondistended, no rebound, no guarding, no peritoneal signs. Musculoskeletal: No joint swelling or deformity, normal muscle tone. Skin: No rashes or petechia, no signs of infection. Psychiatric: Alert and oriented, normal behavior and judgment for situation. Neurological: Alert and oriented to person, place, and time. Follows all commands. No focal deficits, speech is clear and fluent. Course Vital Signs Vital signs: Vital Signs Temperature 97.8 F 07/07/23 05:55 Pulse Rate 89 07/07/23 05:55 Respiratory Rate 25 H 07/07/23 05:55 Blood Pressure 159/106 H 07/07/23 05:55 Pulse Oximetry 96 07/07/23 05:55 Oxygen Delivery Room Air 07/07/23 05:55 Temperature 97.8 F 07/07/23 05:55 Pulse Rate 89 07/07/23 05:57 Respiratory Rate 25 H 07/07/23 05:55 Blood Pressure 159/106 H 07/07/23 05:55 Pulse Oximetry 96 07/07/23 05:57 Oxygen Delivery Room Air 07/07/23 05:57 Medical Decision Making MDM Narrative Medical decision making narrative: The patient was evaluated by myself in the emergency department. History is obtained from patient who is an independent historian and physical exam was performed. External medical records were reviewed at this time. IV was established and pertinent tests were ordered. EKG was obtained which revealed sinus rhythm at a rate of 87 beats per minute with frequent PVC's. No ST changes, T wave inversions or evidence of acute ischemia. EKG was independently interpreted by me and is currently pending official cardiology read. Laboratory results obtained revealing no acute process. Imagi
--- NOTE | 2023-07-08 04:47 | ECG_ITS ---
SEE SCANNED COPY FOR CONFIRMED REPORT MTDD
== END 2023-07-07 07:04 | disposition home or self-care (01) ==
PROVIDERS: Emergency Provider Emergency Medicine
DX: J18.9 Pneumonia, unspecified organism (principal); R06.02 Shortness of breath; I11.0 Hypertensive heart disease with heart failure; I50.9 Heart failure, unspecified; E78.5 Hyperlipidemia, unspecified
CPT/HCPCS: 36415; 71046; 80053; 85025; 93005; 99284

== ENCOUNTER 2023-07-08 04:42 | Observation (INO) | payer MEDICARE, MEDICAID, SELFPAY ==
--- NOTE | 2023-07-07 05:50 | ECG_ITS ---
SEE SCANNED COPY FOR CONFIRMED REPORT. MTDD
[2023-07-08] VITALS (13 sets, daily range): BP systolic 113–160; BP diastolic 83–115; PULSE 68–126; RESP 16–25; TEMP 36.3–36.6; O2SAT 94–100; BMI 28.9
--- NOTE | 2023-07-08 | ECHO_ITS ---
Patient Info Name: Gretchen Alcantar Age: 68 years : 1955 Gender: Female Ht: 62 in Wt: 158 lbs BSA: 1.79 m2 HR: 79 bpm Heart Rhythm: Sinus Rhythm Technical Quality: Fair Exam Date: 07/08/2023 9:58 AM Exam Location: Echo Lab Patient Status: Inpatient Admit Date: 07/08/2023 Staff Ordering Physician: Coni Bhatt APRN Fish Agent: Osmar Betancourt RDCS Attending Provider: Herman Hernandez MD Referring Physician: Nova MERA; Exam Type: CA echo doppler color flow Study Info Indications I50.20 - Unspecified systolic (congestive) heart failure Complete two-dimensional, color flow and Doppler transthoracic echocardiogram is performed. Summary 1. Complete two-dimensional, color flow and Doppler transthoracic echocardiogram is performed. 2. Left ventricular dilation with severe global systolic hypokinesia ejection fraction 20-25%. 3. Severely dilated left atrium. 4. Mild aortic and mitral regurgitation. Left Ventricle Left ventricular chamber dimension is severely enlarged. Left ventricular systolic function is severely reduced, estimated at 20-25%. The left ventricular diastolic function is normal. Right Ventricle Right ventricular chamber dimension is mildly enlarged. Right ventricular systolic function is reduced. Left Atria Left atrial chamber dimension is severely enlarged. Right Atria Right atrial chamber dimension is mildly enlarged. Aortic Valve The aortic valve is trileaflet. There is mild aortic valve sclerosis. There is mild aortic valve regurgitation. Pulmonic Valve The pulmonic valve is normal. Mitral Valve The mitral valve has normal leaflets. There is mild mitral valve regurgitation. Tricuspid Valve The tricuspid valve leaflets are normal. Pericardium/Pleural The pericardium appears normal. Aorta The aortic root size at the sinus of Valsalva is normal. Left Ventricular Outflow Tract Name Value Normal LVOT 2D LVOT Diameter 2.0 cm Pulmonic Valve Name Value Normal RVOT Doppler RVOT Peak Gradient 1 mmHg PV Doppler PV Peak Gradient 2 mmHg PV Regurgitation Doppler TN Peak End Diastolic Velocity 192 cm/s Mitral Valve Name Value Normal MV Doppler MV Decel [place] 634 cm/s2 MV PHT 33 ms MV Area (PHT) 6.7 cm2 4.0-5.0 MV Diastolic Function MV E Peak Velocity 72 cm/s MV A Peak Velocity 70 cm/s MV E/A
--- NOTE | ~2023-07-08 | MR_ITS ---
EXAMINATION: MR brain/brain stem wo con DATE: 07/09/2023 09:10 INDICATION: Stroke. Right leg weakness. TECHNIQUE: Magnetic resonance imaging (MRI) of the brain and brainstem was performed without intraven ous contrast. COMPARISON: None. FINDINGS: There are scattered areas of nonspecific increased T2-weighted signal intensity in the cere bral white matter, which is within normal limits for the patient's age. There is no intracranial hemo rrhage, acute infarction, or abnormal intracranial mass lesion. The ventricles are normal in size. Th e paranasal sinuses are clear. The orbits are normal. There are trace mastoid effusions. IMPRESSION: 1. Normal aging brain. Reviewed, dictated and finalized at location A. IMPRESSION: 1. Normal aging brain.
--- NOTE | ~2023-07-08 | CT_ITS ---
Clinical Indication: Shortness of breath CT Scan of the Chest with Contrast: Technique: Contiguous sections were acquired throughout the chest after intravenous administration of 100 cc of Omnipaque 350. Dose reduction technique was used on this scan by utilizing automated expos ure control and iterative reconstruction technique. The dose-length product (DLP) was 325.94 mGy-cm. Findings: Suggestion of diffusely enlarged thyroid gland. There is no evidence of any significant mediastinal, hilar or axillary lymphadenopathy. There is no f illing defect in the pulmonary arterial tree to suggest pulmonary embolus. There is no evidence of ao rtic dissection or aneurysm. No pericardial effusion. Cardiomegaly noted. Small bilateral pleural effusions are present. Possible minimal interstitial edema. No pulmonary nodule evident. Images through the upper abdomen reveal no abnormalities. Impression: No evidence of pulmonary embolus, aortic dissection, or aortic aneurysm. Small bilateral pleural effusion with suspected minimal interstitial pulmonary edema. Reviewed, dictated and finalized at [facility]. Impression: No evidence of pulmonary embolus, aortic dissection, or aortic aneurysm. Small bilateral pleural effusion with suspected minimal interstitial pulmonary edema.
--- NOTE | ~2023-07-08 | XR_ITS ---
XR hip RT 2V w AP pelvis DATE: 07/09/2023 13:09 INDICATION: Generalized right hip pain. No injury. TECHNIQUE: AP pelvis. AP and lateral views of right hip. COMPARISON: None FINDINGS: Normal alignment at the pubic symphysis and sacroiliac joints. No pelvic fracture or bone d estruction. Mild bilateral hip osteoarthritis. No fracture or dislocation, avascular necrosis or bone destruction of the right hip. Degenerative disc disease and degenerative change at the facet joints of the included lower lumbar sp ine. IMPRESSION: Degenerative changes of the lumbar spine Mild bilateral hip osteoarthritis No pelvic or right hip fracture or dislocation Reviewed, dictated and finalized at location B.
--- NOTE | ~2023-07-08 | MR_ITS ---
EXAMINATION: MR lumbar spine wo con DATE: 07/09/2023 09:11 INDICATION: Right leg weakness. TECHNIQUE: Magnetic resonance imaging (MRI) of the lumbar spine was performed without intravenous con trast. Sequences included sagittal T2-weighted FSE, sagittal T2-weighted FS FSE, sagittal T1-weighted FSE, and axial T2-weighted FSE. COMPARISON: None FINDINGS: There is 3 mm anterolisthesis of L4 on L5. Vertebral body heights are normal. Intervertebra l disc heights are normal. Epidural lipomatosis is noted. The distal spinal cord signal intensity is normal. The conus medullaris is at L1. The following disc levels are specifically discussed: L1-L2: The disc does not extend beyond the endplate margin. There is severe bilateral facet joint ost eoarthritis. There is mild bilateral neural foraminal stenosis. There is no central canal stenosis. L2-L3: The disc is bulging. There is severe bilateral facet joint osteoarthritis. There is mild bilat eral neural foraminal stenosis. There is mild central canal stenosis. L3-L4: The disc is bulging is an annular fissure. There is severe bilateral facet joint osteoarthriti s. There is moderate bilateral neural foraminal stenosis. There is mild central canal stenosis. L4-L5: The disc is bulging and has an annular fissure. There is severe bilateral facet joint osteoart hritis. There is moderate bilateral neural foraminal stenosis. There is mild central canal stenosis. L5-S1: The disc does not extend beyond the endplate margin. There is ankylosis of the facet joints is severe hypertrophy. There is mild right neural foraminal stenosis. There is no central canal stenosi s. IMPRESSION: 1. Moderate lumbar spondylosis. Reviewed, dictated and finalized at location A.
--- NOTE | ~2023-07-08 | US_ITS ---
EXAMINATION: US carotid duplex BI DATE: 07/09/2023 09:55 INDICATION: Right hemiparesis. Stroke. TECHNIQUE: Grayscale, color Doppler, and pulsed Doppler images of the cervical carotid arteries were obtained. The degree of vessel stenosis is placed in one of the following categories: normal, <50%, 5 0-69%, >=70% but less than near-occlusion, near-occlusion, or total occlusion. Note that percent sten osis relative to normal distal artery lumen diameter is indirectly measured from velocity measurement s as described by Hudson, et al. Radiology 2003; 229:340-346. COMPARISON: None. FINDINGS: RIGHT: The right common carotid artery (CCA) peak systolic velocity (PSV) is 52 cm/s. The right internal car otid artery (ICA) PSV is 61 cm/s. The right ICA end-diastolic velocity (EDV) is 21 cm/s. The right IC A/CCA PSV ratio is 1.2. Grayscale and color Doppler images yield an estimate of <50% diameter reducti on from plaque in the ICA. There is antegrade flow in the right vertebral artery. LEFT: The left CCA PSV is 60 cm/s. The left ICA PSV is 46 cm/s. The left ICA EDV is 24 cm/s. The left ICA/C CA PSV ratio is 0.8. Grayscale and color Doppler images yield an estimate of <50% diameter reduction from plaque in the ICA. There is antegrade flow in the left vertebral artery. IMPRESSION: 1. <50% stenosis in the right internal carotid artery. 2. <50% stenosis in the left internal carotid artery. Reviewed, dictated and finalized at location A.
--- NOTE | 2023-07-08 04:55 | ED.GENADULT ---
HPI - General Adult General Chief complaint: Shortness of Breath/Dyspnea Stated complaint: WORSENING SOB Time Seen by Provider: 07/08/23 04:44 History of Present Illness HPI narrative: Patient is a 68-year-old female who presents to the emergency department this morning complaining of shortness of breath. Patient was seen at our facility yesterday for similar symptoms and was discharged home on antibiotic for possible pneumonia. Patient states that she was doing fine during the day, however, when she went to sleep she woke up very short of breath. Patient states that laying down flat made her become very short of breath, while she is sitting up she states that her shortness of breath is not as bad. Patient admits to history of asthma and CHF. Unsure when her last echocardiogram was. She is currently denying sharp chest pain, denies any nausea or vomiting, abdominal pain, fevers or chills, denies any additional symptoms at this time. Related Data Home Medications Medication Instructions Recorded Confirmed aspirin 81 mg tablet,delayed 81 mg PO DAILY 12/30/18 02/21/22 release (Jeana Low Dose Aspirin) atorvastatin 10 mg tablet 10 mg PO DAILY 12/30/18 02/21/22 furosemide 40 mg tablet 40 mg PO DAILY 12/30/18 02/21/22 isosorbide mononitrate 30 mg 30 mg PO DAILY 12/30/18 02/21/22 tablet,extended release 24 hr lisinopril 10 mg tablet 10 mg PO BID 12/30/18 02/21/22 Allergies Allergy/AdvReac Type Severity Reaction Status Date / Time No Known Allergies Allergy Verified 07/07/23 06:00 Review of Systems Review of Systems: All systems are reviewed and are negative unless stated otherwise in the HPI. [facility] Past Medical History Medical History CHF (congestive heart failure) Hyperlipidemia Hypertension Surgical History Surgical History No pertinent past surgical history Social History Social History Smoking status: Never smoker Gender identity (if verbalized by the patient): Female Exam Narrative: General: Alert, awake, afebrile, no acute distress, anxious. Cardiovascular: Tachycardic with regular rhythm, no murmurs, rubs or gallops, no peripheral edema. Respiratory: Clear to auscultation bilaterally, tachypnea, no wheezing, no rhonchi, no rubs, no respiratory distress. Abdomen: Soft, nontender, nondistended, no rebound, no guarding, no peritoneal signs. Musculoskeletal: No joint swelling or deformity, normal muscle tone. Skin: No rashes or petechia, no signs of infection. Psychiatric: Alert and oriented, normal behavior and judgment for situation. Neurological: Alert and oriented to person, place, and time. Follows all commands. No focal deficits, speech is clear and fluent. Course Vital Signs Vital signs: Vital Signs Temperature 98 F 07/08/23 04:42 Pulse Rate 126 H 07/08/23 04:42 Respiratory Rate 25 H 07/08/23 04:42 Blood Pressure 160/115 H 07/08/23 04:42 Pulse Oximetry 95 07/08/23 04:42 Oxygen Delivery Room Air 07/08/23 04:42 Temperature 98 F 07/08/23 04:42 Pulse Rate 100 07/08/23 05:42 Respiratory Rate 24 H 07/08/23 05:42 Blood Pressure 146/96 H 07/08/23 05:34 Pulse Oximetry 98 07/08/23 05:43 Oxygen Delivery Room Air 07/08/23 05:43 Medical Decision Making MDM Narrative Medical decision making narrative: The patient was evaluated by myself in the emergency department. History is obtained from patient who is an independent historian and physical exam was performed. External medical records were reviewed at this time. IV was established and pertinent tests were ordered. EKG was obtained which revealed sinus tachycardia at a rate of 124 beats per with T-wave inversions in leads 1 through 3, aVL, AVF and V4 through V6. EKG was independently interpreted by me and is currently pending offic
[2023-07-08 04:58] LABS: Basophils Absolute Auto 0.1 K/mm3 (0.0-0.1); Basophils Percent Auto 1.3 % (0.2-1.2); Eosinophils Absolute Auto 0.2 K/mm3 (0-0.3); Eosinophils Percent Auto 4.4 % (0-4.4); Hematocrit 39.8 % (37.0-47.0); Immature Granulocyte Absolute 0.01 K/mm3 (0.00-0.031); Immature Granulocyte Percent A 0.2 % (0-0.5); Lymphocytes Absolute Auto 1.89 K/mm3 (0.9-3.2); Mean Corpuscular HGB Conc 32.7 g/dl (32-36); Mean Corpuscular Volume 85.8 fl (80-100); Mean Platelet Volume 9.8 fl (7.4-10.4); Monocytes Absolute Auto 0.4 K/mm3 (0.1-0.6); Monocytes Percent Auto 7.4 % (2.6-8.5); Neutrophils Absolute Auto 2.7 K/mm3 (1.3-6.7); Neutrophils Percent Auto 50.7 % (45.5-73.1); Platelet Count Result 348 k/mm3 (150-375); Red Blood Count 4.64 M/mm3 (4.2-5.4); Red Cell Distribution Width 14.5 % (11.5-14.5); White Blood Count 5.3 K/mm3 (4.5-10.0)
--- NOTE | 2023-07-08 05:03 | PC.NURSE ---
Patient is actively on Dicyclomine for here previous visit for pneumonia. Notified EDP Dr. Rushing who VRBO to hold off on blood cultures.
[2023-07-08 05:12] LABS: Alanine Aminotransferase 38 U/L (6-35); Alkaline Phosphatase 93 U/L (38-126); Anion Gap 7 mmol/L (4-12); Aspartate Amino Transferase 46 U/L (14-36); Bilirubin,Total 0.7 mg/dL (0.2-1.3); Blood Urea Nitrogen 17 mg/dL (7-17); Calcium 9.4 mg/dL (8.4-10.2); Carbon Dioxide 23 mmol/L (22-30); Chloride 112 mmol/L (98-107); Estimated CRCL calculation 54 ml/min; Estimated Glomerular Filt Rate > 60; Glucose 131 mg/dL (65-110); Potassium 3.5 mmol/L (3.4-5.0); Sodium 142 mmol/L (137-145)
[2023-07-08 05:24] LABS: Estimated CRCL calculation 49 ml/min; Estimated Glomerular Filt Rate > 60
[2023-07-08 05:24] LABS: NT Pro B Type Natriuretic Pept 2760 pg/mL (19.9-100); Troponin I < 0.012 ng/mL (0.000-0.034)
[2023-07-08] MEDS: IPRATROPIUM 0.5 MG/ALBUTEROL SULFATE 2.5 MG AMPUL.NEB 3 ML INHALATION (05:27)
[2023-07-08] MEDS: FUROSEMIDE INJ 40 MG/4 ML VIAL IV PUSH (05:40)
--- NOTE | 2023-07-08 07:47 | ADMGEN ---
This patient, Gretchen Alcantar, was admitted to Medical Room 341-01. Patient/family oriented to hospital policies and general routines including ID bracelet, bed and alarms, visiting hours, pain management, procedures, bathroom and other care routines, personal items, smoking policy, room service/diet, and visiting hours. Information on how to activate the Rapid Response Team has been discussed. Patient/Family are encouraged to report perceived risks to care and to ask questions if they do not understand what they are told or what they should do.
--- NOTE | 2023-07-08 09:15 | PM.IMHP ---
H&P: HPI History of Present Illness Date/Time: 07/08/23 09:15 Chief Complaint: Shortness of breath Narrative: This is a 60-year-old female with a past medical history of CHF, hyperlipidemia, asthma, bronchitis, cardiac catheterization without stent and hypertension who presents to the ER with complaints of shortness of breath. She previously reported to the ER on 07/06 with similar complaints. She was diagnosed with community-acquired pneumonia, was discharged with antibiotics, and PCP follow-up. She returned today stating that when she tried to lay flat in bed she became very short of breath. She reports that baseline she can usually walk around within her apartment without getting short of breath. For the last week she has had worsening shortness of breath and inspiratory chest pain exacerbated with activity and lying flat. She does report a cough that is nonproductive. She also reports having green nasal drainage and maxillary sinus pressure. She reports intermittent stressors that cause her to have periods of depression with associated poor appetite. She states she has had a 30-40 lb weight loss in the last year. She does report that she has not been taking her medications as prescribed as of late. She also was recently seen in the ER earlier this month with documented complaints of right sided lower back pain with right lower leg pain. At that time she was treated for sciatica and given a muscle relaxer. Today on exam she has unlabored breathing and is able to speak in full sentences. She states her breathing is much improved after the IV lasix. She denies having lower extremity swelling but does report abdominal fullness and feelings of increased abdominal swelling prior to diuresis. She initially had some positional dizziness but that seems to have resolved. Her appetite has been poor and her last bowel movement was 1 week ago. In the ED her CBC was unremarkable, BMP showed mildly elevated AST and ALT and BNP of 2760. Chest CTA was negative for PE, aortic dissection or aneurysm but did show small bilateral pleural effusion with minimal interstitial pulmonary edema. EKG showed a ventricular rate of 124 with left ventricular hypertrophy and PVCs. Troponin was negative. She was admitted to the hospitalist service for further workup probable CHF exacerbation. While I was working with the patient she had to use the restroom so I suggested her to the commode. She was having difficulty with walking so I consulted PT for further eval. Therapist contacted me with concerns for right-sided weakness in both upper and lower extremities. I re-examined the patient and did a full NIH for which she scored a 5. The patient's right lower extremity has no effort against gravity and she has hyper sensation to right lower extremity. She states she has been having this right-sided weakness for almost a month. It is why she presented to the emergency room earlier in June. I discussed with her that we will proceed with a workup for a recent stroke and further imaging of her lumbar spine. 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 Her son is her emergency contact and he is local. Smoking status: Former smoker Tobacco type: cigarettes Alcohol intake: never Substance use: never Substance use type: ghosh
[2023-07-08] MEDS: ISOSORBIDE MONONITRATE 30 MG TAB.ER.24H PO (11:35)
[2023-07-08] MEDS: ASPIRIN 81 MG ENTERIC TABLET PO (11:35)
[2023-07-08] MEDS: AMOXICILLIN/CLAVULANATE K 875-125 MG TAB 1 TABLET PO ×2 (11:35→20:58)
[2023-07-08] MEDS: lisinopriL 10 MG TABLET PO (11:35)
[2023-07-08] MEDS: ATORVASTATIN 10 MG TABLET PO (11:35)
[2023-07-08] MEDS: TOBRAMYCIN/DEXAMETHASONE OP 2.5 ML BTL 1 DROP RIGHT EYE ×3 (13:13→21:00)
[2023-07-08] MEDS: carvediloL 12.5 MG TABLET PO (17:54)
[2023-07-08 19:04] LABS: Cholesterol 167 mg/dL (0-200); HDL Direct 69 mg/dL; Triglycerides 80 mg/dL (<150)
[2023-07-08 19:14] LABS: Hemoglobin A1C 5.8 % (<5.7)
[2023-07-08 19:15] LABS: LDL Cholesterol Direct 79 mg/dL
[2023-07-08] MEDS: FLUTICASONE/SALMETEROL 45-21 MCG INHALER 1 PUFF 2 PUFF INHALATION (20:00)
[2023-07-08] MEDS: SENNA/DOCUSATE SODIUM TABLET 1 TAB PO (20:58)
[2023-07-09] VITALS (9 sets, daily range): BP systolic 101–125; BP diastolic 63–85; PULSE 65–122; RESP 18–20; TEMP 36.1–36.6; O2SAT 95–99
[2023-07-09 06:20] LABS: Basophils Absolute Auto 0.1 K/mm3 (0.0-0.1); Basophils Percent Auto 1.3 % (0.2-1.2); Eosinophils Absolute Auto 0.3 K/mm3 (0-0.3); Eosinophils Percent Auto 4.2 % (0-4.4); Hematocrit 38.1 % (37.0-47.0); Hemoglobin 12.4 g/dL (12.0-15.0); Immature Granulocyte Absolute 0.01 K/mm3 (0.00-0.031); Immature Granulocyte Percent A 0.2 % (0-0.5); Lymphocytes Percent Auto 36.9 % (18.3-44.2); Mean Corpuscular HGB Conc 32.5 g/dl (32-36); Mean Platelet Volume 10.1 fl (7.4-10.4); Monocytes Absolute Auto 0.5 K/mm3 (0.1-0.6); Monocytes Percent Auto 8.7 % (2.6-8.5); Neutrophils Percent Auto 48.7 % (45.5-73.1); Platelet Count Result 325 k/mm3 (150-375); Red Blood Count 4.43 M/mm3 (4.2-5.4); Red Cell Distribution Width 14.5 % (11.5-14.5); White Blood Count 6.2 K/mm3 (4.5-10.0)
[2023-07-09 06:31] LABS: Alanine Aminotransferase 29 U/L (6-35); Albumin Level 3.8 g/dL (3.5-5.1); Alkaline Phosphatase 77 U/L (38-126); Anion Gap 8 mmol/L (4-12); Aspartate Amino Transferase 28 U/L (14-36); Bilirubin,Total 0.8 mg/dL (0.2-1.3); Blood Urea Nitrogen 25 mg/dL (7-17); Calcium 9.4 mg/dL (8.4-10.2); Carbon Dioxide 25 mmol/L (22-30); Chloride 107 mmol/L (98-107); Estimated CRCL calculation 49 ml/min; Estimated Glomerular Filt Rate > 60; Glucose 101 mg/dL (65-110); Potassium 3.6 mmol/L (3.4-5.0); Sodium 140 mmol/L (137-145)
[2023-07-09] MEDS: LORazepam (*CRX) 0.5 MG TABLET PO (08:13)
--- NOTE | 2023-07-09 09:12 | P.PNIM_ITS ---
Progress Note: A&P Assessment and Plan (1) CHF exacerbation: Code(s): I50.9 - Heart failure, unspecified Status: Acute Assessment and Plan: On treatment with Coreg 12.5 mg BID, Lasix 40 mg Po daily, Imdur 30 mg daily, lisinopril 10 mg BID. * resume home medications * CTA chest negative for PE, aortic dissection, or aneurysm. Small bilateral pleural effusions with minimal interstitial pulmonary edema. * BNP 2760 * Received IV Lasix 40 mg once in the ED * Not requiring oxygen * ECHO ordered and pending * telemetry ordered 07/08: * ECHO with severe global systolic hypokinesia with EF 20-25%, severely dilated left atrium, mild aortic and mitral regurg. * BNP 1450 * Home meds restarted * on tele (2) Orthopnea: Code(s): R06.01 - Orthopnea Status: Acute Assessment and Plan: see above (3) Right leg weakness: Code(s): R29.898 - Other symptoms and signs involving the musculoskeletal system Status: Acute Assessment and Plan: Right leg with no effort against gravity * NIH 5, scoring for right leg and sensation changes * Will start stroke work up: TSH, lipid panel, and hemoglobin A1c pending * Brain MR ordered * bilateral carotid duplex * ECHO pending 07/07: * Brain and lumbar spine pending * carotid duplex pending * PT/OT ordered * lipid panel: LDL 79. On Atorvastatin 10 mg. Plan to increase to 40 mg. * TSH normal * Hemoglobin A1C 5.8%. Fasting glucose is 101. 07/08: * Brain MRI negative * Lumbar MRI shows spondylosis * Carotid duplex negative * PT OT continues * X-ray right hip with complaints of pain (4) Chronic low back pain: Code(s): M54.50 - Low back pain, unspecified; G89.29 - Other chronic pain Status: Acute Assessment and Plan: Chronic low back pain with sensation changes to right leg * XR from 06/20/23 shows grade 1 anterolisthesis at L4-5 * MR lumbar spine wo contrast ordered * Tylenol and Ibuprofen as needed for pain (5) Sinusitis: Code(s): J32.9 - Chronic sinusitis, unspecified Status: Acute Assessment and Plan: maxillary sinus pressure with green nasal drainage * can continue Augmentin for 7 days * No need to continue doxy as patient does not have CAP seen on CT * Claritin with pseudoephedrine * Flonase (6) Decreased mobility: Code(s): R26.89 - Other abnormalities of gait and mobility Status: Acute Assessment and Plan: PT/OT consulted and rec's appreciated Plan Feeding: Heart healthy diet Analgesia: Tylenol or Ibuprofen Thromboembolic prophylaxis: Lovenox Disposition: Home when medically stable Subjective Date/time seen: 07/09/23 09:12 Interval history: This is a 60-year-old female with a past medical history of CHF, hyperlipidemia, asthma, bronchitis, cardiac catheterization without stent and hypertension who presents to the ER with complaints of shortness of breath. 07/09/23: Mrs. Alcantar is doing well today. She is sitting up in chair no acute respiratory distress by she does say that she still has some difficulty breathing with exertion. She had her on brain MRI and dry completed. She received a low dose of Ativan for that prior to her so she is feeling tired. Yesterday she was able to raise her right leg against gravity, today she is able to slowly extend her right leg while sitting. MRI negative for stroke and lumbar MRI shows spondylosis. She reports right hip pain and leg pain. Pain is improved with warm bath and massage. She is also
--- NOTE | 2023-07-09 09:12 | PM.IMPN ---
Progress Note: A&P Assessment and Plan (1) CHF exacerbation: Code(s): I50.9 - Heart failure, unspecified Status: Acute Assessment and Plan: On treatment with Coreg 12.5 mg BID, Lasix 40 mg Po daily, Imdur 30 mg daily, lisinopril 10 mg BID. resume home medications CTA chest negative for PE, aortic dissection, or aneurysm. Small bilateral pleural effusions with minimal interstitial pulmonary edema. BNP 2760 Received IV Lasix 40 mg once in the ED Not requiring oxygen ECHO ordered and pending telemetry ordered 07/08: ECHO with severe global systolic hypokinesia with EF 20-25%, severely dilated left atrium, mild aortic and mitral regurg. BNP 1450 Home meds restarted on tele (2) Orthopnea: Code(s): R06.01 - Orthopnea Status: Acute Assessment and Plan: see above (3) Right leg weakness: Code(s): R29.898 - Other symptoms and signs involving the musculoskeletal system Status: Acute Assessment and Plan: Right leg with no effort against gravity NIH 5, scoring for right leg and sensation changes Will start stroke work up: TSH, lipid panel, and hemoglobin A1c pending Brain MR ordered bilateral carotid duplex ECHO pending 07/07: Brain and lumbar spine pending carotid duplex pending PT/OT ordered lipid panel: LDL 79. On Atorvastatin 10 mg. Plan to increase to 40 mg. TSH normal Hemoglobin A1C 5.8%. Fasting glucose is 101. 07/08: Brain MRI negative Lumbar MRI shows spondylosis Carotid duplex negative PT OT continues X-ray right hip with complaints of pain (4) Chronic low back pain: Code(s): M54.50 - Low back pain, unspecified; G89.29 - Other chronic pain Status: Acute Assessment and Plan: Chronic low back pain with sensation changes to right leg XR from 06/20/23 shows grade 1 anterolisthesis at L4-5 MR lumbar spine wo contrast ordered Tylenol and Ibuprofen as needed for pain (5) Sinusitis: Code(s): J32.9 - Chronic sinusitis, unspecified Status: Acute Assessment and Plan: maxillary sinus pressure with green nasal drainage can continue Augmentin for 7 days No need to continue doxy as patient does not have CAP seen on CT Claritin with pseudoephedrine Flonase (6) Decreased mobility: Code(s): R26.89 - Other abnormalities of gait and mobility Status: Acute Assessment and Plan: PT/OT consulted and rec's appreciated Plan Feeding: Heart healthy diet Analgesia: Tylenol or Ibuprofen Thromboembolic prophylaxis: Lovenox Disposition: Home when medically stable Subjective Date/time seen: 07/09/23 09:12 Interval history: This is a 60-year-old female with a past medical history of CHF, hyperlipidemia, asthma, bronchitis, cardiac catheterization without stent and hypertension who presents to the ER with complaints of shortness of breath. 07/09/23: Mrs. Alcantar is doing well today. She is sitting up in chair no acute respiratory distress by she does say that she still has some difficulty breathing with exertion. She had her on brain MRI and dry completed. She received a low dose of Ativan for that prior to her so she is feeling tired. Yesterday she was able to raise her right leg against gravity, today she is able to slowly extend her right leg while sitting. MRI negative for stroke and lumbar MRI shows spondylosis. She reports right hip pain and leg pain. Pain is improved with warm bath and massage. She is also complaining of congestion in her sinuses. Will order Claritin with pseudoephedrine. Will repeat IV Lasix this afternoon. Anticipate she may be ready to go home tomorrow. Review of Systems Review of Systems: All systems reviewed & are unremarkable except as noted in HPI and below Exam Narrative: General: well appearing, appears stated age. HEENT: normocephalic, atraumatic. Mucous membranes moist. EOMI, PERRLA, bilateral sclera anicter
[2023-07-09 09:45] LABS: NT Pro B Type Natriuretic Pept 1450 pg/mL (19.9-100)
[2023-07-09] MEDS: FUROSEMIDE 40 MG TABLET PO (09:53)
[2023-07-09] MEDS: ISOSORBIDE MONONITRATE 30 MG TAB.ER.24H PO (09:53)
[2023-07-09] MEDS: carvediloL 12.5 MG TABLET PO ×2 (09:53→17:51)
[2023-07-09] MEDS: ASPIRIN 81 MG ENTERIC TABLET PO (09:53)
[2023-07-09] MEDS: polyethylene glycoL 3350 17 GM POWD.PACK PO (09:53)
[2023-07-09] MEDS: MECLIZINE HCL 25 MG TABLET PO (09:54)
[2023-07-09] MEDS: ENOXAPARIN 40 MG/0.4 ML SYRINGE SUB-Q (09:54)
[2023-07-09] MEDS: TOBRAMYCIN/DEXAMETHASONE OP 2.5 ML BTL 1 DROP RIGHT EYE ×4 (09:54→20:25)
[2023-07-09] MEDS: AMOXICILLIN/CLAVULANATE K 875-125 MG TAB 1 TABLET PO ×2 (09:54→20:25)
[2023-07-09] MEDS: lisinopriL 10 MG TABLET PO (09:54)
[2023-07-09] MEDS: FLUTICASONE/SALMETEROL 45-21 MCG INHALER 1 PUFF 2 PUFF INHALATION ×2 (10:00→19:36)
[2023-07-09] MEDS: LORATADINE/PSEUDOEPHEDRINE (*CRX) 10/240 MG TABLET ER 24 HR 1 TAB PO (13:20)
[2023-07-09] MEDS: FUROSEMIDE INJ 40 MG/4 ML VIAL IV PUSH (15:05)
[2023-07-09] MEDS: SENNA/DOCUSATE SODIUM TABLET 1 TAB PO (20:25)
[2023-07-09] MEDS: FLUTICASONE PROPIONATE 0.05% NA SPR 16 GM BTL (*BKC) 1 SPRAY NASAL (20:25)
[2023-07-10] MEDS: ACETAMINOPHEN 325 MG TABLET 650 MG PO (02:37)
[2023-07-10 05:44] LABS: Basophils Absolute Auto 0.1 K/mm3 (0.0-0.1); Basophils Percent Auto 0.9 % (0.2-1.2); Eosinophils Absolute Auto 0.3 K/mm3 (0-0.3); Eosinophils Percent Auto 4.5 % (0-4.4); Hematocrit 40.5 % (37.0-47.0); Hemoglobin 12.6 g/dL (12.0-15.0); Immature Granulocyte Absolute 0.02 K/mm3 (0.00-0.031); Immature Granulocyte Percent A 0.3 % (0-0.5); Lymphocytes Absolute Auto 2.63 K/mm3 (0.9-3.2); Lymphocytes Percent Auto 35.6 % (18.3-44.2); Mean Corpuscular HGB Conc 31.1 g/dl (32-36); Mean Corpuscular Hemoglobin 27.2 pg (26-34); Mean Corpuscular Volume 87.3 fl (80-100); Mean Platelet Volume 10.1 fl (7.4-10.4); Monocytes Absolute Auto 0.6 K/mm3 (0.1-0.6); Monocytes Percent Auto 8.4 % (2.6-8.5); Neutrophils Absolute Auto 3.7 K/mm3 (1.3-6.7); Neutrophils Percent Auto 50.3 % (45.5-73.1); Platelet Count Result 356 k/mm3 (150-375); Red Blood Count 4.64 M/mm3 (4.2-5.4); Red Cell Distribution Width 14.6 % (11.5-14.5); White Blood Count 7.4 K/mm3 (4.5-10.0)
[2023-07-10 05:48] LABS: Alanine Aminotransferase 25 U/L (6-35); Alkaline Phosphatase 78 U/L (38-126); Anion Gap 7 mmol/L (4-12); Aspartate Amino Transferase 26 U/L (14-36); Bilirubin,Total 0.7 mg/dL (0.2-1.3); Blood Urea Nitrogen 25 mg/dL (7-17); Calcium 9.8 mg/dL (8.4-10.2); Carbon Dioxide 30 mmol/L (22-30); Chloride 103 mmol/L (98-107); Estimated CRCL calculation 44 ml/min; Estimated Glomerular Filt Rate > 60; Glucose 115 mg/dL (65-110); Potassium 3.7 mmol/L (3.4-5.0); Sodium 140 mmol/L (137-145)
[2023-07-10 06:00] VITALS: BP 125/81; PULSE 67; RESP 20; TEMP 36.6; O2SAT 98
[2023-07-10] MEDS: FLUTICASONE/SALMETEROL 45-21 MCG INHALER 1 PUFF 2 PUFF INHALATION (08:04)
[2023-07-10 08:05] VITALS: PULSE 67; RESP 20; O2SAT 98
[2023-07-10 09:08] VITALS: O2SAT 97
[2023-07-10] MEDS: ASPIRIN 81 MG ENTERIC TABLET PO (09:08)
[2023-07-10] MEDS: FUROSEMIDE 40 MG TABLET PO (09:08)
[2023-07-10] MEDS: AMOXICILLIN/CLAVULANATE K 875-125 MG TAB 1 TABLET PO (09:08)
[2023-07-10 09:09] VITALS: PULSE 72
[2023-07-10] MEDS: carvediloL 12.5 MG TABLET PO (09:09)
[2023-07-10] MEDS: ATORVASTATIN 40 MG TABLET PO (09:09)
[2023-07-10] MEDS: ISOSORBIDE MONONITRATE 30 MG TAB.ER.24H PO (09:10)
[2023-07-10] MEDS: TOBRAMYCIN/DEXAMETHASONE OP 2.5 ML BTL 1 DROP RIGHT EYE ×2 (09:11→12:21)
[2023-07-10] MEDS: FLUTICASONE PROPIONATE 0.05% NA SPR 16 GM BTL (*BKC) 1 SPRAY NASAL (09:11)
[2023-07-10] MEDS: ENOXAPARIN 40 MG/0.4 ML SYRINGE SUB-Q (09:11)
[2023-07-10] MEDS: lisinopriL 10 MG TABLET PO (09:14)
[2023-07-10] MEDS: LORATADINE/PSEUDOEPHEDRINE (*CRX) 10/240 MG TABLET ER 24 HR 1 TAB PO (09:14)
[2023-07-10] MEDS: polyethylene glycoL 3350 17 GM POWD.PACK PO (09:14)
--- NOTE | 2023-07-10 09:21 | PM.DS ---
DS: Admitting Diagnosis Discharge Date 07/10/2023 Admitting Diagnosis CHF exacerbation, orthopnea, right leg weakness, chronic low back pain, sinusitis, decreased mobility DS: Discharge Diagnosis Discharge Diagnosis (1) CHF exacerbation: Qualifiers: Heart failure type: systolic Qualified Code(s): I50.23 - Acute on chronic systolic (congestive) heart failure Code(s): I50.9 - Heart failure, unspecified Status: Acute (2) Orthopnea: Code(s): R06.01 - Orthopnea Status: Acute (3) Right leg weakness: Code(s): R29.898 - Other symptoms and signs involving the musculoskeletal system Status: Acute (4) Chronic low back pain: Code(s): M54.50 - Low back pain, unspecified; G89.29 - Other chronic pain Status: Acute (5) Sinusitis: Code(s): J32.9 - Chronic sinusitis, unspecified Status: Acute (6) Decreased mobility: Code(s): R26.89 - Other abnormalities of gait and mobility Status: Acute DS: Summary Hospital Course Hospital Course: This is a 60-year-old female patient with past medical history of asthma, CHF chronic low back pain, GERD, hyperlipidemia hypertension was admitted to hospital for CHF exacerbation with dyspnea, orthopnea. No echocardiogram on file at this facility so this was obtained on this admission. This shows severe hypokinesis and EF of 20-25%. Patient received IV diuresis with improvement in shortness of breath lower extremity swelling. She complained chronic low back pain, right-sided numbness of her right arm and leg. Patient underwent of lumbar spine showing chronic degenerative changes but no acute pathology. MRI of the brain without acute pathology, no stroke. Today patient notes that the right-sided numbness and discomfort been present for months to years and was not an acute finding. She also reports neck vertigo. She does not want to go to skilled facility she wants to go home and continue therapy via home health. Case Management notified. Patient is being treated with Augmentin, Claritin D and fluticasone for sinusitis, right ear and potential pneumonia. Status at Discharge Cognitive/behavioral status at discharge: Awake alert oriented and very pleasant Functional status at discharge: uses cane/walker Overall status at discharge: patient is progressing back to baseline Time Spent with Patient Time attestation: Total time spent providing and/or coordinating discharge services: 45 minutes Time spent: Greater than 30 minutes Exam Narrative: General: No acute distress, appears stated age. HEENT: normocephalic, atraumatic. Mucous membranes moist. EOMI, PERRLA, bilateral sclera anicteric, no conjunctival injection. Neck supple without JVD, lymphadenopathy, or bruit. Respiratory: Clear to auscultation, no respiratory distress Cardiovascular: Regular rate and rhythm, normal S1-S2 upon auscultation. No murmurs, rubs, or clicks. PMI is nondisplaced, capillary refill less than 3 second. Abdomen: Soft, nontender and nondistended. Bowel sounds present to all four quadrants. Extremities: No cyanosis, clubbing, or edema present. Pulses are palpable 2/2. Slight weakness right arm and leg Neuro: Alert and orientated x 4. PERRLA. Cranial nerves 2-12 intact without focal deficit. Skin: Warm, dry, and intact, without rash, erythema, or lesion. Psych: pleasant, cooperative, mildly dysthymic DS: Data Data Completed and Pending Completed studies during hospitalization: Stat x-ray, chest CTA, brain MRI, lumbar spine MRI, per Doppler, hip and pelvis x-ray, echocardiogram Labs on day of discharge: Labs from last 24 hours 07/10/23 07/09/23 05:09 05:13 WBC 7.4 RBC 4.64 Hgb 12.6 Hct 40.5 MCV 87.3 MCH 27.2 MCHC 31.1 L RDW 14.6 H Plt Count 356 MPV 10.1 Immature Gran % (Auto) 0.3 Neut % (Auto) 50.3 Lymph % (Auto) 35.6 [place] % (Auto) 8.4 Eos % (Auto) 4.5 H Baso % (Auto) 0.9 Lymph # (Aut
[2023-07-10 14:00] VITALS: BP 108/80; PULSE 81; RESP 18; TEMP 36.9; O2SAT 98
== END 2023-07-10 15:45 | disposition home health service (06) ==
LOC: ANHED 05:37 → ANH3MED 14:09
PROVIDERS: Nurse Practitioner Acute Care; Admitting Provider Internal Medicine; Emergency Provider Emergency Medicine; Visit Provider Internal Medicine
DX: I11.0 Hypertensive heart disease with heart failure (principal); I50.9 Heart failure, unspecified; R06.01 Orthopnea; R06.02 Shortness of breath; R53.1 Weakness; M54.50 Low back pain, unspecified; G89.29 Other chronic pain; J32.9 Chronic sinusitis, unspecified; M25.551 Pain in right hip; R26.89 Other abnormalities of gait and mobility; I65.23 Occlusion and stenosis of bilateral carotid arteries; E78.5 Hyperlipidemia, unspecified; J45.909 Unspecified asthma, uncomplicated; Z79.82 Long term (current) use of aspirin; Z87.891 Personal history of nicotine dependence; Z79.51 Long term (current) use of inhaled steroids; Z79.899 Other long term (current) drug therapy
CPT/HCPCS: 36415; 70551; 71275; 72148; 73502; 80053; 80061; 83036; 83605; 83735; 83880; 84443; 84484; 85025; 93005; 93306; 93880; 94640; 96372; 96374; 96376; 97110; 97116; 97161; 97166; 97530; 99285; A9270; G0378; J1650; J1940; Q9967

== ENCOUNTER 2023-11-24 05:11 | Emergency (ER) | payer MEDICARE, MEDICAID, SELFPAY ==
[2023-11-24] VITALS (8 sets, daily range): BP systolic 144–172; BP diastolic 88–106; PULSE 68–72; RESP 16–18; TEMP 36.3–36.6; O2SAT 95–98
--- NOTE | ~2023-11-24 | US_ITS ---
EXAMINATION: US pelvic complete DATE: 11/24/2023 09:59 INDICATION: And asymmetric enlargement the left ovary with indeterminate left ovarian lesion on prior CT TECHNIQUE: Multiple transabdominal sonographic images of the pelvis were obtained. COMPARISON: None. FINDINGS: The uterus measures 9.7 x 6.2 x 6.1 cm. The endometrial complex measures 5 mm in thickness. 3.1 cm f ibroid at the posterior uterine fundus with coarse shadowing calcifications. Additional 2.2 cm mildly hyperechoic fibroid at the anterior uterine body. The right ovary measures 4.2 x 1.7 x 3.6 cm. The l eft ovary measures 5.4 x 2.2 x 3.0 cm. The left ovary is again noted to have bilobed appearance with suggestion of a 3.3 x 2.2 cm isoechoic lesion without posterior acoustic enhancement to suggest a cys tic lesion and which is concerning for neoplasm. Vascular flow is identified at both ovaries on color Doppler. Normal bladder. There is no free fluid in the pelvis. IMPRESSION: 1. Again noted is a bilobed appearance to the left ovary with suggestion of a 3.3 x 2.2 cm solid ovar fabby mass which raises concern for malignancy. Would recommend further evaluation with pre and postcon trast MRI. 2. Fibroid uterus. Reviewed, dictated and finalized at location A. IMPRESSION: 1. Again noted is a bilobed appearance to the left ovary with suggestion of a 3 .3 x 2.2 cm solid ovarian mass which raises concern for malignancy. Would recom mend further evaluation with pre and postcontrast MRI. 2. Fibroid uterus.
--- NOTE | ~2023-11-24 | US_ITS ---
EXAMINATION: US abdomen limited DATE: 11/24/2023 09:59 INDICATION: Gallbladder lesion equivocal for gallstones versus neoplasm. TECHNIQUE: Multiple grayscale and Doppler ultrasound images of the abdomen were obtained. COMPARISON: CT dated 11/24/2023 FINDINGS: The pancreatic head and body are normal in appearance. The pancreatic tail is not visualized. The vi sualized proximal inferior vena cava is normal. Liver has normal echogenicity and contour, with a smo oth surface. No liver lesion identified. No intrahepatic biliary duct dilation suspected. Portal veno us flow was seen in the hepatopetal, normal direction and has normal Doppler waveform. Echogenic and shadowing gallstones in the gallbladder the largest measuring 1.6 cm which corresponds to the lesion of concern on prior CT. The gallbladder is otherwise normal in appearance. The common bile duct josh ures 2-3 mm, which is normal. Sonographic Dodd sign was reported as negative by the steam flattener. IMPRESSION: 1. Cholelithiasis which accounts for the intraluminal gallbladder lesion of concern on prior CT. Reviewed, dictated and finalized at location A. IMPRESSION: 1. Cholelithiasis which accounts for the intraluminal gallbladder lesion of con cern on prior CT.
--- NOTE | ~2023-11-24 | CT_ITS ---
EXAMINATION: CT abdomen pelvis w con DATE: 11/24/2023 06:17 INDICATION: Abdominal pain TECHNIQUE: Computed tomography (CT) of the abdomen and pelvis was performed with 100 mL Omnipaque-350 intravenous contrast. Automated exposure control and iterative reconstruction technique were employe d. The dose-length product was 485.38 mGy-cm. COMPARISON: None FINDINGS: Mild left basilar atelectasis. Cardiomegaly. No pericardial effusion. Diffuse hepatic steatosis. 1.4 cm intraluminal density in the dependent gallbladder most likely a gallstone but could not exclude an enhancing polyp or neoplasm. Spleen, pancreas and bilateral adrenal glands are normal. There are meghan ateral low-attenuation renal cysts the largest on the left measuring 1.3 cm. Bowels are normal. The a ppendix is not visualized. No pericecal inflammatory change to suggest acute appendicitis. Bladder is normal. 4 cm partially calcified uterine fibroid. Normal right ovary measuring 3.2 x 1.9 cm. The con tralateral left ovary is relatively enlarged measuring 4.8 x 3.0 cm and with a bilobed appearance inc luding a 3.1 cm soft tissue density nodule which raises concern for neoplasm. There is a 2.5 x 1.1 x 2.7 cm lesion of slightly greater than simple fluid attenuation on the anterior margin of the right g onadal vein without evident organized surrounding wall to suggest abscess which could represent minim al loculated ascites or potentially a lymphangioma. No other free intraperitoneal gas or fluid. No pa thologically enlarged abdominal or pelvic lymphadenopathy. Severe multilevel lumbar facet osteoarthri tis. Anterior and posterior spinal fusion at L5-S1. Moderate bilateral sacroiliac and mild to moderat e bilateral hip osteoarthritis. IMPRESSION: 1. No acute intra-abdominal/pelvic process. 2. 1.4 cm intraluminal density in the dependent gallbladder which could represent a gallstone, gallbl adder polyp or carcinoma. Recommend right upper quadrant ultrasound for further evaluation. 3. Asymmetric enlargement of the left ovary with bilobed appearance suggesting a 3.1 cm soft tissue d ensity nodule also raising concern for malignancy and with recommend ultrasound for initial further e valuation. The lesion is consistent along the cephalad margin of the fundus of the uterus and if poor ly visualized but ultrasound would then consider pre and postcontrast MRI for further evaluation. 4. Fibroid uterus. 5. Cardiomegaly. 6. 2.7 x 2.5 x 1.1 cm near simple fluid attenuation lesion along the distal right gonadal vein withou t enhancing wall to suggest abscess which could represent either minimal loculated ascites or a small retroperitoneal lymphangioma. Reviewed, dictated and finalized at location A. IMPRESSION: 1. No acute intra-abdominal/pelvic process. 2. 1.4 cm intraluminal density in the dependent gallbladder which could represe nt a gallstone, gallbladder polyp or carcinoma. Recommend right upper quadrant ultrasound for further evaluation. 3. Asymmetric enlargement of the left ovary with bilobed appearance suggesting a 3.1 cm soft tissue density nodule also raising concern for malignancy and wit h recommend ultrasound for initial further evaluation. The lesion is consistent along the cephalad margin of the fundus of the uterus and if poorly visualized but ultrasound would then consider pre and postcontrast MRI for further evalua tion. 4. Fibroid uterus. 5. Cardiomegaly. 6. 2.7 x 2.5 x 1.1 cm near simple fluid attenuation lesion along the distal rig ht gonadal vein without enhancing wall to suggest abscess which could represent either minimal loculated ascites or a small retroperitoneal lymphangioma.
--- NOTE | ~2023-11-24 | XR_ITS ---
EXAMINATION: XR chest 1V portable DATE: 11/24/2023 05:45 INDICATION: Shortness of breath TECHNIQUE: frontal view of the chest was obtained. COMPARISON: Chest radiograph dated 07/07/[address] dated 07/08/23 FINDINGS: Cardiomegaly with pulmonary vascular congestion without mohsen pulmonary edema. Small wedge-shaped ret rocardiac opacity left lung base most likely atelectasis with differential including pneumonia. No pl eural effusion or pneumothorax. IMPRESSION: 1. Cardiomegaly with pulmonary vascular congestion without mohsen pulmonary edema. 2. Small wedge-shaped retrocardiac airspace opacity at the left lung base most likely atelectasis alt marychuy differential includes pneumonia. Reviewed, dictated and finalized at location A. IMPRESSION: 1. Cardiomegaly with pulmonary vascular congestion without mohsen pulmonary michael a. 2. Small wedge-shaped retrocardiac airspace opacity at the left lung base most likely atelectasis although differential includes pneumonia.
--- NOTE | 2023-11-24 05:20 | ECG_ITS ---
Test Date: 2023-11-24 05:22:53 Measurements Intervals [place] Rate: 67 P: 60 [place]: 211 QRS: -27 QRSD: 123 T: 197 QT: 440 QTc: 465 Interpretive Statements SINUS RHYTHM WITH FIRST DEGREE AV BLOCK WITH FREQUENT VENTRICULAR PREMATURE COMPLEXES LEFT VENTRICULAR HYPERTROPHY AND ST-T CHANGE [VOLTAGE CRITERIA PLUS ST/T ABNORMALITY] No previous ECG available for comparison Electronically Signed On 11-24-2023 11:37:21 CDT by Jayden Curry M.D.
[2023-11-24 05:28] LABS: Basophils Absolute Auto 0.1 K/mm3 (0.0-0.1); Basophils Percent Auto 1.1 % (0.2-1.2); Eosinophils Absolute Auto 0.2 K/mm3 (0-0.3); Eosinophils Percent Auto 4.1 % (0-4.4); Hematocrit 41.4 % (37.0-47.0); Hemoglobin 13.3 g/dL (12.0-15.0); Immature Granulocyte Absolute 0.01 K/mm3 (0.00-0.031); Immature Granulocyte Percent A 0.2 % (0-0.5); Lymphocytes Percent Auto 40.9 % (18.3-44.2); Mean Corpuscular HGB Conc 32.1 g/dl (32-36); Mean Corpuscular Hemoglobin 27.8 pg (26-34); Mean Corpuscular Volume 86.6 fl (80-100); Mean Platelet Volume 10.7 fl (7.4-10.4); Monocytes Absolute Auto 0.5 K/mm3 (0.1-0.6); Monocytes Percent Auto 9.2 % (2.6-8.5); Neutrophils Absolute Auto 2.5 K/mm3 (1.3-6.7); Neutrophils Percent Auto 44.5 % (45.5-73.1); Platelet Count Result 263 k/mm3 (150-375); Red Blood Count 4.78 M/mm3 (4.2-5.4); Red Cell Distribution Width 14.3 % (11.5-14.5); White Blood Count 5.6 K/mm3 (4.5-10.0)
[2023-11-24 05:42] LABS: Alanine Aminotransferase 18 U/L (6-35); Albumin Level 4.2 g/dL (3.5-5.1); Alkaline Phosphatase 100 U/L (38-126); Anion Gap 8 mmol/L (4-12); Aspartate Amino Transferase 30 U/L (14-36); Bilirubin,Total 0.6 mg/dL (0.2-1.3); Blood Urea Nitrogen 17 mg/dL (7-17); Calcium 10.2 mg/dL (8.4-10.2); Carbon Dioxide 28 mmol/L (22-30); Chloride 106 mmol/L (98-107); Estimated Glomerular Filt Rate > 60; Glucose 116 mg/dL (65-110); Potassium 3.6 mmol/L (3.4-5.0); Sodium 142 mmol/L (137-145)
--- NOTE | 2023-11-24 06:21 | ED.GENADULT ---
HPI - General Adult General Chief complaint: Shortness of Breath/Dyspnea <David Raymundo MD - Last Filed: 11/24/23 06:24> Stated complaint: sob/abd pain <David Raymundo MD - Last Filed: 11/24/23 06:24> Time Seen by Provider: 11/24/23 05:36 <David Raymundo MD - Last Filed: 11/24/23 06:24> History of Present Illness HPI narrative: Patient is a 68-year-old female who presents emergency department with chief complaint of shortness of breath. Patient reports around 2:00 a.m. she started having increasing shortness of breath patient has history of both congestive heart failure and asthma patient reports that she used her inhaler that helped out some reports she has also had increasing peripheral edema and states that her abdomen has been distended and reports he has not had a bowel movement 2 days <David Raymundo MD - Last Filed: 11/24/23 06:24> Patient is a 68-year-old female who presents to the emergency department with chief complaint of shortness of breath. Patient reports around 2:00 a.m. she started having increasing shortness of breath patient has history of both congestive heart failure and asthma patient reports that she used her inhaler that helped out some reports she has also had increasing peripheral edema and states that her abdomen has been distended and reports he has not had a bowel movement 2 days <Enrique Vargas MD - Last Filed: 11/24/23 16:52> Related Data Home medications: Home Medications Medication Instructions Recorded Confirmed aspirin 81 mg tablet,delayed 81 mg PO DAILY 12/30/18 07/08/23 release (Jeana Low Dose Aspirin) furosemide 40 mg tablet 40 mg PO DAILY 12/30/18 07/08/23 isosorbide mononitrate 30 mg 30 mg PO DAILY 12/30/18 07/08/23 tablet,extended release 24 hr lisinopril 10 mg tablet 10 mg PO BID 12/30/18 07/08/23 albuterol sulfate 90 mcg/actuation 2 puff inhalation Q4H PRN 07/08/23 07/08/23 aerosol inhaler Shortness Of Breath Or Wheezing budesonide-formoterol HFA 80 1 puff inhalation DAILY 07/08/23 07/08/23 mcg-4.5 mcg/actuation aerosol inhaler (Symbicort) carvedilol 12.5 mg tablet 12.5 mg PO BID 07/08/23 07/08/23 <David Raymundo MD - Last Filed: 11/24/23 06:24> Allergies/adverse reactions: Allergies Allergy/AdvReac Type Severity Reaction Status Date / Time No Known Allergies Allergy Verified 07/07/23 06:00 <David Raymundo MD - Last Filed: 11/24/23 06:24> Review of Systems Review of Systems: A 10 system review of systems was completed on the patient and is negative except for what is stated in the HPI. Nursing and ancillary documentation was reviewed. 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 Her son is her emergency contact and he is local. Smoking status: Former smoker Tobacco type: cigarettes Alcohol intake: never Substance use: never Substance use type: does not use Other substance usage details: Tried marijuana once in when she was young Do You Feel Safe in your Home?: Yes Lack of Transportation: No Lack of Food: Never True Current Housing
[2023-11-24 06:45] LABS: INR 1.2; Partial Thromboplastin Time 30.8 Seconds (22.3-36.8); Prothrombin Time 15.8 Seconds (11.1-14.7)
[2023-11-24 06:49] LABS: Troponin I < 0.012 ng/mL (0.000-0.034)
[2023-11-24 06:49] LABS: Lactic Acid Reflex 0.9 mmol/L (0.7-2.0)
[2023-11-24 06:50] LABS: NT Pro B Type Natriuretic Pept 2120 pg/mL (19.9-100)
[2023-11-24 07:14] LABS: Influenza A QL RT-PCR Negative (Negative); Influenza B QL RT-PCR Negative (Negative); RSV RNA, RT-PCR Negative (Negative); SARS-CoV-2 RNA PCR Negative (Negative)
--- NOTE | 2023-11-24 07:26 | PC.NURSE ---
Patient unable to provide urine specimen at this time. Requesting water. EDP ok with patient having a small glass of water.
[2023-11-24 08:09] LABS: Add Urine Microscopic? NO; Appearance Urine Clear (Clear); Bilirubin Urine Negative (Negative); Blood Urine Negative (Negative); Color Urine Yellow (Yellow); Glucose Urine UA Negative (Negative); Ketones Urine Negative (Negative); Leukocyte Esterase Ur Negative LEU/UL (Negative); Nitrate Urine Negative (Negative); Protein Urine Negative (Negative); Specific Grav Ur > 1.045 (1.001-1.035); Urobilinogen Urine 0.2 mg/dL (<2.0)
--- NOTE | 2023-11-24 08:41 | ECG_ITS ---
Test Date: 2023-11-24 08:43:57 Measurements Intervals [place] Rate: 66 P: 59 MS: 210 QRS: -28 QRSD: 124 T: 215 QT: 444 QTc: 466 Interpretive Statements SINUS RHYTHM WITH FIRST DEGREE AV BLOCK LEFT VENTRICULAR HYPERTROPHY AND ST-T CHANGE [VOLTAGE CRITERIA PLUS ST/T ABNORMALITY] Compared to ECG 11/24/2023 05:22:53 Ventricular premature complex(es) no longer present Electronically Signed On 11-24-2023 11:40:01 CDT by Jayden Curry M.D.
[2023-11-24 09:11] LABS: Troponin I < 0.012 ng/mL (0.000-0.034)
== END 2023-11-24 14:37 | disposition home or self-care (01) ==
PROVIDERS: Emergency Provider Emergency Medicine
DX: J81.1 Chronic pulmonary edema (principal); K80.20 Calculus of gallbladder without cholecystitis without obstruction; N83.9 Noninflammatory disorder of ovary, fallopian tube and broad ligament, unspecified; Z20.822 Contact with and (suspected) exposure to COVID-19; I50.9 Heart failure, unspecified; I11.0 Hypertensive heart disease with heart failure; J45.909 Unspecified asthma, uncomplicated; E78.5 Hyperlipidemia, unspecified; K21.9 Gastro-esophageal reflux disease without esophagitis; Z87.891 Personal history of nicotine dependence; I44.0 Atrioventricular block, first degree; I51.7 Cardiomegaly; I49.3 Ventricular premature depolarization; D25.9 Leiomyoma of uterus, unspecified
CPT/HCPCS: 36415; 71045; 74177; 76705; 76856; 80053; 81003; 83605; 83735; 83880; 84484; 85025; 85610; 85730; 87637; 93005; 99284; Q9967

== ENCOUNTER 2024-03-03 02:46 | Emergency (ER) | payer MEDICARE, MEDICAID, SELFPAY ==
--- NOTE | ~2024-03-03 | XR_ITS ---
Portable chest x-ray Comparison: 02/27/2024 Clinical History: Shortness of breath Findings: Questionable minimal pleural effusions. Cardiomediastinal silhouette is stable. Bones and soft tissues are unremarkable. Impression: Questionable minimal pleural effusions. Stable cardiomegaly. Reviewed, dictated and finalized at [facility]. ENTRY COORDINATOR Impression: Questionable minimal pleural effusions. Stable cardiomegaly.
[2024-03-03 02:45] VITALS: BP 142/84; PULSE 70; RESP 13; TEMP 36.6; O2SAT 99
--- NOTE | 2024-03-03 02:51 | ECG_ITS ---
Test Date: 2024-03-03 02:53:12 Measurements Intervals [place] Rate: 67 P: 50 [place]: 190 QRS: -20 QRSD: 122 T: 200 QT: 469 QTc: 496 Interpretive Statements SINUS RHYTHM WITH OCCASIONAL VENTRICULAR PREMATURE COMPLEXES POSSIBLE LEFT ATRIAL ENLARGEMENT [-0.1mV P-WAVE IN V1/V2] LEFT VENTRICULAR HYPERTROPHY AND ST-T CHANGE [VOLTAGE CRITERIA PLUS ST/T ABNORMALITY] Compared to ECG 02/27/2024 04:22:31 No significant changes Electronically Signed On 03-03-2024 15:16:30 SHOE WORKER by Jean-Paul Maradiaga M.D.
[2024-03-03 02:58] LABS: Basophils Absolute Auto 0.1 K/mm3 (0.0-0.1); Eosinophils Absolute Auto 0.3 K/mm3 (0-0.3); Eosinophils Percent Auto 4.5 % (0-4.4); Hematocrit 38.9 % (37.0-47.0); Hemoglobin 12.2 g/dL (12.0-15.0); Immature Granulocyte Absolute 0.02 K/mm3 (0.00-0.031); Immature Granulocyte Percent A 0.3 % (0-0.5); Lymphocytes Absolute Auto 1.92 K/mm3 (0.9-3.2); Lymphocytes Percent Auto 33.1 % (18.3-44.2); Mean Corpuscular HGB Conc 31.4 g/dl (32-36); Mean Corpuscular Hemoglobin 26.6 pg (26-34); Mean Corpuscular Volume 84.7 fl (80-100); Mean Platelet Volume 10.9 fl (7.4-10.4); Monocytes Absolute Auto 0.4 K/mm3 (0.1-0.6); Monocytes Percent Auto 6.6 % (2.6-8.5); Neutrophils Absolute Auto 3.2 K/mm3 (1.3-6.7); Neutrophils Percent Auto 54.5 % (45.5-73.1); Platelet Count Result 249 k/mm3 (150-375); Red Blood Count 4.59 M/mm3 (4.2-5.4); Red Cell Distribution Width 15.4 % (11.5-14.5); White Blood Count 5.8 K/mm3 (4.5-10.0)
[2024-03-03 03:11] LABS: Alanine Aminotransferase 100 U/L (6-35); Albumin Level 3.4 g/dL (3.5-5.1); Alkaline Phosphatase 193 U/L (38-126); Anion Gap 7 mmol/L (4-12); Aspartate Amino Transferase 120 U/L (14-36); Bilirubin,Total 1.2 mg/dL (0.2-1.3); Blood Urea Nitrogen 22 mg/dL (7-17); Calcium 8.9 mg/dL (8.4-10.2); Carbon Dioxide 25 mmol/L (22-30); Chloride 108 mmol/L (98-107); Estimated CRCL calculation 55 ml/min; Estimated Glomerular Filt Rate > 60; Glucose 120 mg/dL (65-110); Potassium 3.8 mmol/L (3.4-5.0); Sodium 140 mmol/L (137-145)
--- NOTE | 2024-03-03 03:15 | ED_ITS ---
HPI - General Adult General Chief complaint: Shortness of Breath/Dyspnea Stated complaint: sob Time Seen by Provider: 03/03/24 02:49 History of Present Illness HPI narrative: Patient is a 68-year-old female who presents to the emergency department this evening complaining of shortness of breath. Patient also complains of right upper quadrant pain which she states started at 1:00 a.m. this morning. Admits to history of heart failure and and states that she does use inhalers at but have not noticed that they have been helping with her shortness of breath. Patient was recently seen our facility for similar symptoms and had a CT abdomen and pelvis performed revealing gallstones with gallbladder wall thickening. Patient is denying any chest pain, fevers or chills, nausea or vomiting. No additional symptoms or concerns at this time. Related Data Home Medications ?Medication ?Instructions ?Recorded ?Confirmed ?Last Taken ?Type aspirin 81 mg tablet,delayed 81 mg PO DAILY 12/30/18 07/08/23 Unknown History release (Jeana Low Dose Aspirin) furosemide 40 mg tablet 40 mg PO DAILY 12/30/18 07/08/23 Unknown History isosorbide mononitrate 30 mg 30 mg PO DAILY 12/30/18 07/08/23 Unknown History tablet,extended release 24 hr lisinopril 10 mg tablet 10 mg PO BID 12/30/18 07/08/23 Unknown History albuterol sulfate 90 mcg/actuation 2 puff inhalation Q4H PRN 07/08/23 07/08/23 Unknown History aerosol inhaler Shortness Of Breath Or Wheezing budesonide-formoterol HFA 80 1 puff inhalation DAILY 07/08/23 07/08/23 Unknown History mcg-4.5 mcg/actuation aerosol inhaler (Symbicort) carvedilol 12.5 mg tablet 12.5 mg PO BID 07/08/23 07/08/23 Unknown History Allergies Allergy/AdvReac Type Severity Reaction Status Date / Time No Known Allergies Allergy Verified 02/27/24 02:07 Review of Systems 2 Review of Systems: All systems are reviewed and are negative unless stated otherwise in the HPI. 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 Her son is her emergency contact and he is local. Smoking status: Former smoker Tobacco type: cigarettes Alcohol intake: never Substance use: never Substance use type: does not use Other substance usage details: Tried marijuana once in when she was young Do You Feel Safe in your Home?: Yes Lack of Transportation: No Lack of Food: Never True Current Housing: I Have Housing Concerned About Future Housing: No Difficulty Paying Gas/Electric Bills: No Difficulty Paying for Meds: No Currently Unemployed: No Education: High School Diploma/GED Difficulty w/ Childcare or Family Care: No Living arrangements: alone Additional living arrangements comments: Lives with her dog Occupation/Education: unemployed Additional occupation/education comments: Disabled Gender identity (if verbalized by the patient): Female Spiritual care concerns: No Exam 2 Narrative: General: Alert, awake, afebrile, in no acute distress. HEENT: PERRL, no rhinorrhea, no post nasal drip, oropharynx clear. Neck: Trachea midline, no JVD, no lymphadenopathy. Cardiovascular: Regular rate and rhythm, no murmurs, rubs or gallops, no peripheral edema. Respiratory: Diminished bilateral breath sounds, no tachypnea, no respiratory distress. Abdomen: Soft, nontender, nondistended, no rebound, no guarding, no peritoneal signs. Musculoskeletal: No joint swelling or deformity, normal muscle tone. Skin: No rashes or petechia, no signs of infection. Psychiatric: Alert and oriented, normal behavior and judgment for situation. Neurological: Alert and oriented to person, place, and time. Follows all commands. No focal deficits, speech is clear and fluent. Course Vital Signs Vital signs: Vital Signs Temperature 97.9 F 03/03/24 02:45 Pulse Rate 70 03/03/24 02:45 Respiratory Rate 13 03/03/24 02:45 Blood Pressure 142/84 H 03/03/24 02:45 Pulse Oximetry 99 03/03/24 02:45 Oxygen Delivery Room Air 03/03/24 02:45 Temperature 97.9 F 03/03/24 02:45 Pulse Rate 62 03/03/24 04:21 Respiratory Rate 13 03/03/24 04:21 Blood Pressure 131/85 03/03/24 04:21 Pulse Oximetry 97 03/03/24 04:21 Oxygen Delivery Room Air 03/03/24 04:21 Medical Decision Making MDM Narrative Medical decision making narrative: The patient was evaluated by myself in the emergency department. History is obtained from patient who is an independent historian and physical exam was performed. External medical records were reviewed at this time. IV was established and pertinent tests were ordered. Patient was administered a DuoNeb breathing treatment and 125 mg of IV Solu- Medrol. EKG was obtained which revealed sinus rhythm rate of 76 beats per minute. No evidence of acute ischemia. EKG was independently interpreted by me and is currently pending official cardiology read. Laboratory results obtained revealing AST 120, ALT 100, alkaline phosphatase 193. BNP 3320 which is higher than patient's baseline BNP which has been around [id number]. Patient admits has been taking her Lasix at home 40 mg daily. At this time she was administered 40 mg IV dose of Lasix. Patient does not appear to be clear leaflet. On repeat assessment, patient states that she feels much better after the breathing treatment. Imaging studies obtained included CXR which was independently interpreted by me revealing cardiomegaly and small bilateral pleural effusions which is pending final radiology interpretation. Differential diagnosis considerations include asthma exacerbation, CHF exacerbation, infectious process such as pneumonia. Comorbidities impacting this visit include history of CHF and asthma. I have evaluated and discussed social determinants of health with the patient that could potentially impact subsequent diagnosis and treatment plans. On repeat assessment of the patient, reevaluation revealed that the patient is doing well and is in no acute distress. Patient symptoms have improved since she arrived to our emergency department. Repeat vital signs were all reviewed and noted to be stable. Differential diagnosis and treatment plan were discussed with the patient at bedside. Question regarding a hospital admission was initiated at this time, however, patient states that she feels as though her symptoms have improved and does not want to be admitted. All questions were answered to the patient's satisfaction. Patient will follow up with her primary care physician in 3-5 days. Patient was provided with strict return precautions and instructed to return to the emergency department if any new or worsening symptoms develop. The patient was discharged in stable condition. Vital Signs Vital Signs: Vital Signs Temperature 97.9 F 03/03/24 02:45 Pulse Rate 70 03/03/24 02:45 Respiratory Rate 13 03/03/24 02:45 Blood Pressure 142/84 H 03/03/24 02:45 Pulse Oximetry 99 03/03/24 02:45 Oxygen Delivery Room Air 03/03/24 02:45 Temperature 97.9 F 03/03/24 02:45 Pulse Rate 62 03/03/24 04:21 Respiratory Rate 13 03/03/24 04:21 Blood Pressure 131/85 03/03/24 04:21 Pulse Oximetry 97 03/03/24 04:21 Oxygen Delivery Room Air 03/03/24 04:21 Lab Data 03/03/24 02:53 03/03/24 02:53 Labs: Lab Results 03/03/24 Range/Units 02:53 WBC 5.8 (4.5-10.0) K/mm3 RBC 4.59 (4.2-5.4) M/mm3 Hgb 12.2 (12.0-15.0) g/dL Hct 38.9 (37.0-47.0) % MCV 84.7 (80-100) fl MCH 26.6 (26-34) pg MCHC 31.4 L (32-36) g/dl RDW 15.4 H (11.5-14.5) % Plt Count 249 (150-375) k/mm3 MPV 10.9 H (7.4-10.4) fl Immature Gran % (Auto) 0.3 (0-0.5) % Neut % (Auto) 54.5 (45.5-73.1) % Lymph % (Auto) 33.1 (18.3-44.2) % [place] % (Auto) 6.6 (2.6-8.5) % Eos % (Auto) 4.5 H (0-4.4) % Baso % (Auto) 1.0 (0.2-1.2) % Lymph # (Auto) 1.92 (0.9-3.2) K/mm3 [place] # (Auto) 0.4 (0.1-0.6) K/mm3 Eos # (Auto) 0.3 (0-0.3) K/mm3 Baso # (Auto) 0.1 (0.0-0.1) K/mm3 Abs Immat Gran (auto) 0.02 (0.00-0.031) K/mm3 Absolute Neuts (auto) 3.2 (1.3-6.7) K/mm3 Absolute Nucleated RBC 0.000 (0.0-0.012) K/mm3 Nucleated RBC % 0.0 (0.0-0.2) % Sodium 140 (137-145) mmol/L Potassium 3.8 (3.4-5.0) mmol/L Chloride 108 H (98-107) mmol/L Carbon Dioxide 25 (22-30) mmol/L Anion Gap 7 (4-12) mmol/L BUN 22 H (7-17) mg/dL Creatinine 0.80 (0.7-1.0) mg/dL Estim Creat Clear Calc 55 ml/min Estimated GFR > 60 (59 - ) Glucose 120 H (65-110) mg/dL Calcium 8.9 (8.4-10.2) mg/dL Total Bilirubin 1.2 (0.2-1.3) mg/dL AST 120 H (14-36) U/L ALT 100 H (6-35) U/L Alkaline Phosphatase 193 H (38-126) U/L NT-Pro-B Natriuret Pep 3220 H (19.9-100) pg/mL Total Protein 7.0 (6.3-8.2) g/dL Albumin 3.4 L (3.5-5.1) g/dL Discharge Plan Discharge Clinical Impression: Shortness of breath CHF exacerbation Qualifiers: Heart failure type: systolic Qualified Code(s): I50.23 - Acute on chronic systolic (congestive) heart failure Patient Disposition: Home, Self-Care Condition: Improved Instructions: Antibiotic Form, Heart Failure (ED), Asthma (ED) Additional Instructions: Please follow-up with your family doctor within the next 3-5 days. Return to the ED if any new or worsening symptoms develop. Make sure you are taking your water pill at home and using your inhalers as prescribed. Patient Language: Turkmen Prescriptions: No Action tobramycin-dexamethasone [TobraDex] 0.3-0.1 % drops,suspension 1 drp RIGHT EYE QID 7 Days Qty: 10 0RF furosemide 40 mg Tablet 40 mg PO DAILY isosorbide mononitrate 30 mg Tablet Extended Release 24 Hr 30 mg PO DAILY aspirin [Jeana Low Dose Aspirin] 81 mg Tablet,Delayed Release (Dr/Ec) 81 mg PO DAILY lisinopril 10 mg Tablet 10 mg PO BID meclizine 25 mg tablet 25 mg PO TID PRN (Reason: dizziness) Qty: 14 0RF carvedilol 12.5 mg tablet 12.5 mg PO BID albuterol sulfate 90 mcg/actuation HFA aerosol inhaler 2 puff INHALATION Q4H PRN (Reason: Shortness Of Breath Or Wheezing) budesonide-formoterol [Symbicort] 80-4.5 mcg/actuation HFA aerosol inhaler 1 puff INHALATION DAILY atorvastatin 40 mg Tablet 40 mg PO DAILY Qty: 30 0RF Claritin-D 24 Hour 10-240 mg Tablet Extended Release 24 Hr 1 tablet PO QAM Qty: 90 0RF fluticasone propionate 50 mcg/actuation [place],Suspension 1 spray intranasal Q12HR Qty: 16 0RF amoxicillin-pot clavulanate 875-125 mg tablet 1 tablet PO Q12H Qty: 10 0RF hydrocodone-acetaminophen 5-325 mg tablet 1 tablet PO Q12H PRN (Reason: pain) 7 Days Qty: 14 0RF cyclobenzaprine 10 mg tablet 10 mg PO TID PRN (Reason: muscle spasm) Qty: 20 0RF Follow-up/Referrals: PHYSICIAN NOT ON STAFF,NONSTAFF [Primary Care Provider] - Sebastian Aldana MD [Physician] - 3 Days Time of Disposition: 04:44
[2024-03-03] MEDS: methylPREDNISolone SOD SUCC 125 MG VIAL IV PUSH (03:25)
[2024-03-03] MEDS: IPRATROPIUM 0.5 MG/ALBUTEROL SULFATE 2.5 MG AMPUL.NEB 3 ML INHALATION (03:26)
[2024-03-03 03:30] VITALS: PULSE 71; RESP 21
[2024-03-03 03:33] VITALS: PULSE 67; RESP 18
[2024-03-03 04:21] VITALS: BP 131/85; PULSE 62; RESP 13; O2SAT 97
[2024-03-03 04:35] LABS: NT Pro B Type Natriuretic Pept 3220 pg/mL (19.9-100)
[2024-03-03] MEDS: FUROSEMIDE INJ 40 MG/4 ML VIAL IV PUSH (05:04)
[2024-03-03 05:27] VITALS: BP 106/61; PULSE 67; RESP 16; O2SAT 97
== END 2024-03-03 05:05 | disposition home or self-care (01) ==
PROVIDERS: Emergency Provider Emergency Medicine
DX: I11.0 Hypertensive heart disease with heart failure (principal); I50.23 Acute on chronic systolic (congestive) heart failure; R06.02 Shortness of breath; M54.50 Low back pain, unspecified; G89.29 Other chronic pain; J45.909 Unspecified asthma, uncomplicated; E78.5 Hyperlipidemia, unspecified
CPT/HCPCS: 36415; 71045; 80053; 83880; 85025; 93005; 94640; 96374; 96375; 99284; J1940; J2919

== ENCOUNTER 2024-12-26 13:58 | Emergency (ER) | payer MEDICARE, MEDICAID, SELFPAY ==
--- NOTE | 2024-12-26 14:04 | ED.LOWEXIN ---
HPI - Extremity Injury (Lower) General Stated Complaint: Right Ankle Pain Source: patient and RN notes reviewed Mode of arrival: ambulatory Limitations: no limitations Related Data Home Medications ?Medication ?Instructions ?Recorded ?Confirmed ?Last Taken ?Type aspirin 81 mg tablet,delayed 81 mg PO DAILY 12/30/18 07/08/23 Unknown History release (Jeana Low Dose Aspirin) furosemide 40 mg tablet 40 mg PO DAILY 12/30/18 07/08/23 Unknown History isosorbide mononitrate 30 mg 30 mg PO DAILY 12/30/18 07/08/23 Unknown History tablet,extended release 24 hr lisinopril 10 mg tablet 10 mg PO BID 12/30/18 07/08/23 Unknown History albuterol sulfate 90 mcg/actuation 2 puff inhalation Q4H PRN 07/08/23 07/08/23 Unknown History aerosol inhaler Shortness Of Breath Or Wheezing budesonide-formoterol HFA 80 1 puff inhalation DAILY 07/08/23 07/08/23 Unknown History mcg-4.5 mcg/actuation aerosol inhaler (Symbicort) carvedilol 12.5 mg tablet 12.5 mg PO BID 07/08/23 07/08/23 Unknown History Allergies Allergy/AdvReac Type Severity Reaction Status Date / Time No Known Allergies Allergy Verified 02/27/24 02:07 Review of Systems Review of Systems: CONSTITUTIONAL: Denies malaise, chills, sweats, or fever. SKIN: Denies rash or itching, open skin, laceration, abrasion, redness, warmth, swelling. 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 Her son is her emergency contact and he is local. Tobacco type: cigarettes Alcohol intake: never Substance use: never Substance use type: does not use Other substance usage details: Tried marijuana once in when she was young Do You Feel Safe in your Home?: Yes Lack of Transportation: No Lack of Food: Never True Current Housing: I Have Housing Concerned About Future Housing: No Difficulty Paying Gas/Electric Bills: No Difficulty Paying for Meds: No Currently Unemployed: No Education: High School Diploma/GED Difficulty w/ Childcare or Family Care: No Living arrangements: alone Additional living arrangements comments: Lives with her dog Occupation/Education: unemployed Additional occupation/education comments: Disabled Gender identity (if verbalized by the patient): Female Spiritual care concerns: No Comments At time of signature, agree with nursing past medical, surgical, social and family history. There is no relevant family history pertinent to the presenting complaint Exam Narrative: GENERAL: Well-appearing, well-nourished, and in no acute distress. HEAD: Normocephalic, atraumatic. EYES: PERRLA, conjunctivae clear NECK: Supple. CHEST: Speaks in full sentences. No respiratory distress. HEART: Regular rate and rhythm. Normal and equal peripheral pulses. EXTREMITIES: [Xxx] has grossly normal strength and sensation, grossly normal range of motion. No edema or ecchymosis. 5/5 strength with [xxx] flexion and extension. Normal sensation with sensitivity to light touch and pain. No point tenderness. No open wounds, no skin tenting, no devitalized tissue or atrophy, no trophic changes, no obvious deformity, alignment normal, nearby joints and structures intact. Distal pulses palpable and equal bilaterally, skin warm, dry, pink. Capillary refill less than 3 seconds. SKIN: Warm, dry, no rash. NEURO: Alert and oriented x3. PSYCH: Normal mood and affect Course Course Emergency Course: Patient is aware of diagnosis, understands and agrees to treatment plan. Anticipatory guidance given. Patient agrees to follow-up as directed and is aware of reasons to seek care at the emergency department. Portions of this record may have been created with voice recognition software Level of Care: Express Care Visit Vital Signs Vital signs: Reviewed. MDM - Extremity Injury (Lower) MDM Narrative Medical decision making narrative: The patient was evaluated by myself in the express care. History is obtained from patient who is an independent historian and physical exam was performed.? Available medical records were reviewed at this time. ? Exam findings show no acute concerns or changes; patient is non-toxic appearing and is in no distress. Patient is appropriate for outpatient treatment and follow-up. ? I have evaluated and discussed social determinants of health with the patient that could potentially impact subsequent diagnosis and treatment plans. ? Patients injury and pain is consistent with musculoskeletal etiology. No signs of neurological or vascular compromise on exam. Compartments and tissues are soft without signs of compartment syndrome. Pain is felt appropriate for further evaluation on an outpatient basis. Critical Care Time Critical Care Time Critical Care Time: No Discharge Plan Discharge Patient Language: Austrian Prescriptions: No Action tobramycin-dexamethasone [TobraDex] 0.3-0.1 % drops,suspension 1 drp RIGHT EYE QID 7 Days Qty: 10 0RF furosemide 40 mg Tablet 40 mg PO DAILY isosorbide mononitrate 30 mg Tablet Extended Release 24 Hr 30 mg PO DAILY aspirin [Jeana Low Dose Aspirin] 81 mg Tablet,Delayed Release (Dr/Ec) 81 mg PO DAILY lisinopril 10 mg Tablet 10 mg PO BID meclizine 25 mg tablet 25 mg PO TID PRN (Reason: dizziness) Qty: 14 0RF carvedilol 12.5 mg tablet 12.5 mg PO BID albuterol sulfate 90 mcg/actuation HFA aerosol inhaler 2 puff INHALATION Q4H PRN (Reason: Shortness Of Breath Or Wheezing) budesonide-formoterol [Symbicort] 80-4.5 mcg/actuation HFA aerosol inhaler 1 puff INHALATION DAILY atorvastatin 40 mg Tablet 40 mg PO DAILY Qty: 30 0RF Claritin-D 24 Hour 10-240 mg Tablet Extended Release 24 Hr 1 tablet PO QAM Qty: 90 0RF fluticasone propionate 50 mcg/actuation [place],Suspension 1 spray intranasal Q12HR Qty: 16 0RF amoxicillin-pot clavulanate 875-125 mg tablet 1 tablet PO Q12H Qty: 10 0RF hydrocodone-acetaminophen 5-325 mg tablet 1 tablet PO Q12H PRN (Reason: pain) 7 Days Qty: 14 0RF cyclobenzaprine 10 mg tablet 10 mg PO TID PRN (Reason: muscle spasm) Qty: 20 0RF Follow-up/Referrals: PHYSICIAN,MOTORS AND GENERATORS INSPECTOR [Primary Care Provider, Internal Medicine]
[2024-12-26 14:11] VITALS: BP 121/65; PULSE 88; RESP 18; TEMP 36.8; O2SAT 100
--- NOTE | 2024-12-26 14:19 | ED.EXTPRO ---
HPI - Extremity Problem General Chief complaint: Extremity Injury, Lower Stated complaint: Right Ankle Pain Time Seen by Provider: 12/26/24 14:19 Source: patient and RN notes reviewed Mode of arrival: ambulatory Limitations: dementia History of Present Illness MD Complaint: extremity pain Related Data Home Medications ?Medication ?Instructions ?Recorded ?Confirmed ?Last Taken ?Type aspirin 81 mg tablet,delayed 81 mg PO DAILY 12/30/18 07/08/23 Unknown History release (Jeana Low Dose Aspirin) furosemide 40 mg tablet 40 mg PO DAILY 12/30/18 07/08/23 Unknown History isosorbide mononitrate 30 mg 30 mg PO DAILY 12/30/18 07/08/23 Unknown History tablet,extended release 24 hr lisinopril 10 mg tablet 10 mg PO BID 12/30/18 07/08/23 Unknown History albuterol sulfate 90 mcg/actuation 2 puff inhalation Q4H PRN 07/08/23 07/08/23 Unknown History aerosol inhaler Shortness Of Breath Or Wheezing budesonide-formoterol HFA 80 1 puff inhalation DAILY 07/08/23 07/08/23 Unknown History mcg-4.5 mcg/actuation aerosol inhaler (Symbicort) carvedilol 12.5 mg tablet 12.5 mg PO BID 07/08/23 07/08/23 Unknown History Allergies Allergy/AdvReac Type Severity Reaction Status Date / Time No Known Allergies Allergy Verified 12/26/24 14:22 Review of Systems Review of Systems: CONSTITUTIONAL: Denies malaise, chills, sweats, or fever. EYES: Denies redness, or discharge. ENT: Denies rhinorrhea, congestion, swollen lips, swollen tongue CARDIOVASCULAR: Denies chest pain, palpitations, or edema. RESPIRATORY: Denies cough or dyspnea. GASTROINTESTINAL: Denies abdominal pain, nausea, vomiting SKIN: Reports redness, swelling. Denies purulent drainage, vesicles, bullae, numbness, pain beyond proportion MUSCULOSKELETAL: Denies joint pain or myalgia. NEUROLOGIC: Denies headache. 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 Her son is her emergency contact and he is local. Tobacco type: cigarettes Alcohol intake: never Substance use: never Substance use type: does not use Other substance usage details: Tried marijuana once in when she was young Do You Feel Safe in your Home?: Yes Lack of Transportation: No Lack of Food: Never True Current Housing: I Have Housing Concerned About Future Housing: No Difficulty Paying Gas/Electric Bills: No Difficulty Paying for Meds: No Currently Unemployed: No Education: High School Diploma/GED Difficulty w/ Childcare or Family Care: No Living arrangements: alone Additional living arrangements comments: Lives with her dog Occupation/Education: unemployed Additional occupation/education comments: Disabled Gender identity (if verbalized by the patient): Female Spiritual care concerns: No Comments At time of signature, agree with nursing past medical, surgical, social and family history. There is no relevant family history pertinent to the presenting complaint Exam Narrative: GENERAL: Well-appearing, well-nourished, and in no acute distress. HEAD: Normocephalic, atraumatic. EYES: PERRLA, conjunctivae clear ENT: Mucous membranes moist. NECK: Supple. No lymphadenopathy CHEST: Clear to auscultation. No respiratory distress. HEART: Regular rate and rhythm. SKIN: Warm, dry. Erythema, induration, tenderness, warmth with sharp margins noted (xx). No vesicles, bullae, necrosis, ecchymosis, crepitus noted. NEURO: Alert and oriented x3. PSYCH: Normal mood and affect Course Course Emergency Course: Patient is aware of diagnosis, understands and agrees to treatment plan. Anticipatory guidance given. Patient agrees to follow-up as directed and is aware of reasons to seek care at the emergency department. Portions of this record may have been created with voice recognition software Level of Care: Express Care Visit Vital Signs Vital signs: Vital Signs Temperature 98.2 F 12/26/24 14:11 Pulse Rate 88 12/26/24 14:11 Respiratory Rate 18 12/26/24 14:11 Blood Pressure 121/65 12/26/24 14:11 Pulse Oximetry 100 12/26/24 14:11 Oxygen Delivery Room Air 12/26/24 14:11 Temperature 98.2 F 12/26/24 14:11 Pulse Rate 88 12/26/24 14:11 Respiratory Rate 18 12/26/24 14:11 Blood Pressure 121/65 12/26/24 14:11 Pulse Oximetry 100 12/26/24 14:11 Oxygen Delivery Room Air 12/26/24 14:11 Reviewed. Critical Care Time Critical Care Time Critical Care Time: No Discharge Plan Discharge Patient Language: Pashto Prescriptions: No Action tobramycin-dexamethasone [TobraDex] 0.3-0.1 % drops,suspension 1 drp RIGHT EYE QID 7 Days Qty: 10 0RF furosemide 40 mg Tablet 40 mg PO DAILY isosorbide mononitrate 30 mg Tablet Extended Release 24 Hr 30 mg PO DAILY aspirin [Jeana Low Dose Aspirin] 81 mg Tablet,Delayed Release (Dr/Ec) 81 mg PO DAILY lisinopril 10 mg Tablet 10 mg PO BID meclizine 25 mg tablet 25 mg PO TID PRN (Reason: dizziness) Qty: 14 0RF carvedilol 12.5 mg tablet 12.5 mg PO BID albuterol sulfate 90 mcg/actuation HFA aerosol inhaler 2 puff INHALATION Q4H PRN (Reason: Shortness Of Breath Or Wheezing) budesonide-formoterol [Symbicort] 80-4.5 mcg/actuation HFA aerosol inhaler 1 puff INHALATION DAILY atorvastatin 40 mg Tablet 40 mg PO DAILY Qty: 30 0RF Claritin-D 24 Hour 10-240 mg Tablet Extended Release 24 Hr 1 tablet PO QAM Qty: 90 0RF fluticasone propionate 50 mcg/actuation [place],Suspension 1 spray intranasal Q12HR Qty: 16 0RF amoxicillin-pot clavulanate 875-125 mg tablet 1 tablet PO Q12H Qty: 10 0RF hydrocodone-acetaminophen 5-325 mg tablet 1 tablet PO Q12H PRN (Reason: pain) 7 Days Qty: 14 0RF cyclobenzaprine 10 mg tablet 10 mg PO TID PRN (Reason: muscle spasm) Qty: 20 0RF Follow-up/Referrals: PHYSICIAN,PROCESS LABORATORY SPECIALIST [Primary Care Provider, Internal Medicine]
--- NOTE | 2024-12-26 14:34 | ED_ITS ---
HPI - Back Pain/Injury General Chief Complaint: Extremity Injury, Lower Stated Complaint: Right Ankle Pain Time Seen by Provider: 12/26/24 14:19 Source: patient and RN notes reviewed Mode of arrival: ambulatory Limitations: no limitations History of Present Illness HPI Narrative: 69-year-old female with chronic back pain presents with concern for right lower extremity pain. Reports the pain starts on her posterior right thigh and radiates down to her anterior right lower leg and ankle. She denies any injury or trauma. She denies fever, body aches, chills, sweats. She reports that it hurts to walk. She takes muscle relaxers daily. She has not taken any medication for this current pain. She denies redness, swelling, warmth in the lower extremity, ankle, foot, digits. She denies decreased strength, sensation, range of motion the lower extremity, ankle, foot, digits. She denies loss bowel or bladder function, perianal anesthesia, weakness in any extremity, fever abdominal pain. MD elicited complaint: other (sciatic pain) Related Data Home Medications ?Medication ?Instructions ?Recorded ?Confirmed ?Last Taken ?Type furosemide 40 mg tablet 40 mg PO DAILY 12/30/1806/19 Unknown History lisinopril 10 mg tablet 10 mg PO BID 12/30/18 Unknown History albuterol sulfate 90 mcg/actuation 2 puff inhalation Q 4H PRN 07/08/23 07/08/23 Unknown History aerosol inhaler Shortness Of Breath Or Wheez ing carvedilol 12.5 mg tablet 12.5 mg PO BID 07/08/2306/19 Unknown History apixaban 5 mg tablet (Eliquis) mg 12/26/24 Unknown Hi story baclofen 5 mg tablet mg 12/26/24 Unknown History spironolactone 25 mg tablet mg 12/26/24 Unknown Histo ry Allergies Allergy/AdvReac Type Severity Reaction Status Date / Time No Known Allergies Allergy Verified 12/26/24 14:22 Review of Systems Review of Systems: CONSTITUTIONAL: Denies malaise, chills, sweats, or fever. CARDIOVASCULAR: Denies chest pain, palpitations, or edema. RESPIRATORY: Denies cough or dyspnea. GASTROINTESTINAL: Denies abdominal pain, nausea, vomiting, diarrhea, loss of bowel function GENITOURINARY: Denies dysuria, hematuria, frequency, loss of bladder function. SKIN: Denies rash or itching. MUSCULOSKELETAL: Reports chronic low back pain. Reports right lower extremity stinging and pain NEUROLOGIC: Denies numbness, weakness, or headache. 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 Her son is her emergency contact and he is local. Tobacco type: cigarettes Alcohol intake: never Substance use: never Substance use type: does not use Other substance usage details: Tried marijuana once in when she was young Do You Feel Safe in your Home?: Yes Lack of Transportation: No Lack of Food: Never True Current Housing: I Have Housing Concerned About Future Housing: No Difficulty Paying Gas/Electric Bills: No Difficulty Paying for Meds: No Currently Unemployed: No Education: High School Diploma/GED Difficulty w/ Childcare or Family Care: No Living arrangements: alone Additional living arrangements comments: Lives with her dog Occupation/Education: unemployed Additional occupation/education comments: Disabled Gender identity (if verbalized by the patient): Female Spiritual care concerns: No Comments At time of signature, agree with nursing past medical, surgical, social and family history. There is no relevant family history pertinent to the presenting complaint Exam Narrative: GENERAL: Well-appearing, well-nourished, and in no acute distress. HEAD: Normocephalic, atraumatic. EYES: PERRLA and EOMI. NECK: Supple. No lymphadenopathy. CHEST: Clear to auscultation. No respiratory distress. HEART: Regular rate and rhythm. Distal pulses palpable and equal, cap refill <3 seconds MUSCULOSKELETAL: Grossly Normal range of motion and strength in all extremities; 5/5 strength with hip flexion and extension, dorsiflexion and extension, knee flexion and extension, plantar flexion and extension. Normal sensation in dermatomal distributions with sensitivity to light touch and pain. No midline back tenderness to palpation. No paraspinal tenderness. Right lower extremity has no erythema, warmth, swelling in the knee, lower leg, ankle, foot, digits. SKIN: Warm, dry, no rash. No ecchymosis, erythema, open wounds to back. NEURO: No focal deficits. Alert and oriented x3. PSYCH: Normal mood and affect Course Course Emergency Course: Patient is aware of diagnosis, understands and agrees to treatment plan. Anticipatory guidance given. Patient agrees to follow-up as directed and is aware of reasons to seek care at the emergency department. Portions of this record may have been created with voice recognition software Level of Care: [facility] [place] Visit Vital Signs Vital signs: Vital Signs Temperature 98.2 F 12/26/24 14:11 Pulse Rate 88 12/26/24 14:11 Respiratory Rate 18 12/26/24 14:11 Blood Pressure 121/65 12/26/24 14:11 Pulse Oximetry 100 12/26/24 14:11 Oxygen Delivery Room Air 12/26/24 14:11 Temperature 98.2 F 12/26/24 14:11 Pulse Rate 88 12/26/24 14:11 Respiratory Rate 18 12/26/24 14:11 Blood Pressure 121/65 12/26/24 14:11 Pulse Oximetry 100 12/26/24 14:11 Oxygen Delivery Room Air 12/26/24 14:11 Reviewed. MDM - Back Pain/Injury MDM Narrative Medical decision making narrative: I evaluated this in the [facility]. History is obtained from patient who is an independent historian and physical exam was performed.? Available medical records were reviewed. ? Exam findings and relevant testing show no acute concerns or changes; patient is non-toxic appearing and is in no distress. No risk factors or findings concerning for epidural abscess, diskitis, vertebral osteomyelitis, cord compression, cauda equina, vertebral fracture or bone malignancy, AAA, or pyelonephritis. Patient instructed to consider further imaging and workup through their primary care physician as an outpatient if symptoms persist. ? Differential diagnosis and treatment plan were discussed with the patient. Patient agrees with discussion and after shared medical decision making agrees with plan of care. All questions were answered to the patient's satisfaction. Patient is appropriate for outpatient treatment and follow-up. Critical Care Time Critical Care Time Critical Care Time: No Discharge Plan Discharge Clinical Impression: Sciatic leg pain Patient Disposition: Home Condition: Stable Instructions: Sciatica (ED) Additional Instructions: Please follow up with your Primary Care Doctor within 48-72 hours - call for an appointment. Walking and other gentle exercising several times a week has been shown to improve back pain; bed rest is not recommended. Take prednisone as directed, continue taking your baclofen as directed by your doctor. You may apply heat or cold to the area as needed. If you experience any worsening pain, swelling, numbness, weakness please go to ER. Contact your doctor or go to the emergency department if you develop problems with bladder or bowel function, weakness or loss of feeling in one or both of your legs, or any other serious concerns. Patient Language: Occitan Prescriptions: New prednisone 20 mg tablet 40 mg PO DAILY 5 Days Qty: 10 0RF No Action spironolactone 25 mg tablet Eliquis 5 mg tablet baclofen 5 mg tablet furosemide 40 mg Tablet 40 mg PO DAILY lisinopril 10 mg Tablet 10 mg PO BID carvedilol 12.5 mg tablet 12.5 mg PO BID albuterol sulfate 90 mcg/actuation HFA aerosol inhaler 2 puff INHALATION Q4H PRN (Reason: Shortness Of Breath Or Wheezing) atorvastatin 40 mg Tablet 40 mg PO DAILY Qty: 30 0RF cyclobenzaprine 10 mg tablet 10 mg PO TID PRN (Reason: muscle spasm) Qty: 20 0RF Follow-up/Referrals: PHYSICIAN,CHARGEBACK ANALYST [Primary Care Provider, Internal Medicine] Time of Disposition: 14:36
== END 2024-12-26 14:46 | disposition home or self-care (01) ==
PROVIDERS: Emergency Provider Nurse Practitioner
DX: M54.31 Sciatica, right side (principal); I11.0 Hypertensive heart disease with heart failure; I50.9 Heart failure, unspecified; E78.5 Hyperlipidemia, unspecified; J45.909 Unspecified asthma, uncomplicated; K21.9 Gastro-esophageal reflux disease without esophagitis; Z87.891 Personal history of nicotine dependence
CPT/HCPCS: 99213; G0463

== ENCOUNTER 2024-12-27 14:47 | Emergency (ER) | payer MEDICARE, MEDICAID, SELFPAY ==
--- OUTSIDE RECORDS SUMMARY | 2020-05-24 02:27 | XMS_ITS | Continuity of Care Document ---
Author Organization [employer] [facility] Address [address] [address] Phone Care Team Providers Care Occupational Therapy Aides Teacher Name Role Phone Santy OLIVER, Reshma Unavailable Unavailab le Allergies, Adverse Reactions, Alerts Substance Reaction Status Criticality No Known Allergies Active No Inform ation Medications Medication Instructions Dosage Effective Dates (start - stop) Status Comments No Drug Therapy Prescribed Problems Condition Type Effective Dates (start - stop) Clini luz Status Comments No Known Problems Procedures Procedure Date OFFICE/OUTPATIENT VISIT, EST URINE TEST OFFICE/OUTPATIENT VISIT, EST OFFICE/OUTPATIENT VISIT, EST URINE TEST OFFICE/OUTPATIENT VISIT, EST CYTOPATH, C/V, THIN LAYER OFFICE/OUTPATIENT VISIT, EST CYTOPATH, C/V, INTERPRET OFFICE/OUTPATIENT VISIT, EST OFFICE/OUTPATIENT VISIT, EST CYTOPATH, C/V, INTERPRET OFFICE/OUTPATIENT VISIT, NEW Advance Directives Directive Yes / No Effective Date File Name No Information Encounters Encounter Description Practice Location Reason(s) For Visit Diagnoses Date Provider Providers Copied on Encounter [facility], [address] [place] [address] [address], [place], [place], [id number] , [phone] [facility] No Information 1 Santy Justice. [address], [place], [id number], [place]. tel:[phone] OFFICE/OUTPA TIENT VISIT, EST [facility], [address] [place] [address], [id number] , [place] tel: [phone] [facility] Follow up (chief complaint) Uterine leiomyoma, unspecified locationPelvic organ prolapse quantification stage 1 cystocele 1 Santy Justice. [address], [place], [id number], [place]. tel:[phone] OFFICE/OUTPA TIENT VISIT, EST [facility], [address] [place] [address], [id number] , [place] tel: [phone] [facility] Vaginal mass (chief complaint) Encounter for gynecological examination (general) (routine) without abnormal findingsVaginal lesion 1 Santy Justice. [address], [place], [id number], [place]. tel:[phone] OFFICE/OUTPA TIENT VISIT, EST [facility], [address] [place] [address], [id number] , [place] tel: [phone] [facility] pelvic mass/cyst (chief complaint) Vaginal massFamily history of cancerFormer smoker, stopped smoking in distant pastHypertension , unspecified typeArthritisHem orrhoids, unspecified hemorrhoid typeEncounter for test, result negative 1 Ford Guevara. [address] [place], [address], [place]. tel:[phone] OFFICE/OUTPA TIENT VISIT, EST [facility], [address] [place] [address], [id number] , [place] tel: [phone] [facility] annual exam (chief complaint) Body mass index (BMI) 29.0-29.9, adultEncounter for screening for oth infec/parastc diseasesUterine leiomyoma, unspecified locationEncntr for obgyn nurse exam (general) (routine) w abnormal findings 9 Jovanygay Bull. [address] [place], [place], [id number], [place]. tel:[phone] OFFICE/OUTPA TIENT VISIT, [facility], [address], [id number] , [place] tel: [phone] [facility] REPAIR CAMERAMAN (chief complaint) Uterine leiomyoma, unspecified location 7 Fadia Uriarte. [address] [place], [place], [id number], [place]. [phone] [facility], [address] [place] [address], [id number] , [place] tel: [phone] [facility] No Information 7 Joe Elizabeth. [address] [place], [place], [id number]. tel:[phone] OFFICE/OUTPA TIENT VISIT, [facility], [address] [place] [address], [id number] , [place] tel: [phone] [facility] pap (chief complaint)f ibroids (chief complaint) Encntr for obgyn nurse exam (general) (routine) w abnormal findingsUterine leiomyoma, unspecified location 7 Joe Elizabeth. [address] [place], [place], [id number]. tel:[phone] OFFICE/OUTPA TIENT VISIT, [facility], [address] [place] [address], [id number] , [place] tel: [phone] [facility] abnormal ultrasound (chief complaint) Uterine leiomyoma, unspecified location 5 Fadia Germainmo. [address] [place], [place], [id number], [place]. tel:[phone] [facility], [address] [place] [address], [id number] , [place] tel: [phone] [facility] No Information 4 Joe Elizabeth. [address] [place], [place], [id number]. tel:[phone] OFFICE/OUTPA TIENT VISIT, NEW [facility], [address] [place] [address], [place], [place], [id number] , [place] tel: [phone] [facility] No Information 4 Joe Elizabeth. [address] [place], [place], [id number]. tel:[phone] Family History Family Member Type Diagnosis Age At Onset No Information Payers Payer name Insurance type Covered green party ID Authoriza tion(s) [employer] FFS OCN [id number] Social History Type Description Quantity Date Captured Comments Sex Female Smoking Status No Information Chief Complaint And Reason For Visit No Information Reason For Referral Reason For Referral No Information Plan Of Treatment Date Type Action Status Goal Breast exam. Due on due Goal PAP. Due on due Goal Pneumococcal vaccine. Due on due Goal Lipid Panel. Due on due Goal Colonoscopy. Due on due Goal CULLEN'S Screening. Due on due Goal Mammogram. Due on due Goal FOBT. Due on due Goal H&P. Due on due Goal Dentist Referral. Due on Mar due Goal PHQ9. Due on due Goal DEXA scan. Due on due Goal PPD (TST). Due on due Goal Cognitive assessment. Due on due Goal FOBT. Due on due Goal PHQ9. Due on due Goal PPD (TST). Due on due Goal H&P. Due on due Goal Colonoscopy. Due on due Goal Lipid Panel. Due on due Goal CULLEN'S Screening. Due on due Goal PAP. Due on due Goal Breast exam. Due on due Goal Mammogram. Due on due Goal Tdap. Due on due Goal Dentist Referral. Due on Mar due Goal Tdap. Due on due Goal FOBT. Due on due Goal Mammogram. Due on due Goal PHQ9. Due on due Goal H&P. Due on due Goal Dentist Referral. Due on Feb due Goal PPD (TST). Due on due Goal CULLEN'S Screening. Due on due Goal Colonoscopy. Due on due Goal Lipid Panel. Due on due Goal PAP. Due on due Goal Breast exam. Due on due Goal Tdap. Due on due Goal Mammogram. Due on due Goal PPD (TST). Due on due Goal Lipid Panel. Due on due Goal Colonoscopy. Due on due Goal PAP. Due on due Goal Breast exam. Due on due Goal H&P. Due on due Goal Dentist Referral. Due on Aug due Goal PHQ9. Due on due Goal FOBT. Due on due Referral Ordered: Referrals: Gynecology. Evaluate and treat Appointment date/timeframe: 06/03/2020 ordered Referral Ordered: US EXAM, PELVIC, COMPLETE Appointment date/timeframe: 05/23/2020 ordered Referral Ordered: TRANSVAGINAL US, NON-OB Appointment date/timeframe: 05/23/2020 ordered Referral Referred To: Carmencita Long DO [address] [place], [place], [phone] Ordered: Referrals: Gynecology. Carmencita Long DO. Evaluate and treat Appointment date/timeframe: 03/21/2020 ordered Patient Education Pelvic Exam: Care Instr uctions completed Patient Education Arthritis: Care Instruc tiaysha completed Patient Education Injury to the Rectum an d Vagina: Care~ completed Patient Education Pelvic Exam: Care Instr uctions completed History Of Present Illness Encounter Date Complaint History Of Prese nt Illness Follow up 65 year old here to follow up on vaginal mass. No obvious mass seen at 03/21 visit and when patient looked herself, she stated it was no longer there, but was encouraged to come in again if it reappeared. She states it reappeared this week at home, she took photos which are somewhat blurry but appears similar to a cystocele. Patient examined today with SERA Youngblood who saw her initially. No external lesions noted, similar to my exam from 03/21. On speculum exam there is still some anterior descent mostly from the anterior cervix area to mid-vagina. It only extends to about -3. She believes it is more noticeable with standing as she primarily notices it in the shower. We again had her walk around the room for a few minutes privately after which point she did not see it coming out. She denies any associated incontinence or splinting. Offered patient referral to UroGyn for further evaluation which she is agreeable to. Patient also reporting some back/side pain which she attributes to fibroids. Offered pelvic US to reevaluate size of fibroids and patient agreeable. Ordered via [employer], can follow up with me once completed.Pap NILM HPV negative 08/2018.Of note, patient declined to have a nurse/MA animal husbandry manager present for exam. Stated she was not comfortable with having so many people in the room. Consented to exam with myself and SERA Youngblood only. Vaginal mass 64 year old referred for vaginal mass noted on exam last week with SERA Youngblood. States it is fairly recent that she noticed it. She notices it when taking a shower primarily. She denies associated pain, irritation, bleeding, discharge, etc. She denies any bleeding since menopause, which she thinks was about 15-20 years ago. Only REPAIR CAMERAMAN history is fibroids. See previous note for full history.On exam today I was unable to identify any particular mass. Attempts made with 2 different sized speculums and a split speculum exam. There is an external hemorrhoid and mild anterior and apical descent with valsalva, but otherwise no mass. The patient is aware of the hemorrhoid and has an appointment to have it looked at coming up, and she states the mass was definitely separate from the hemorrhoid. She does not complain of prolapse or urinary symptoms. I asked the patient to look herself with a small mirror and when she did, stated the mass it is no longer there. I also asked her to walk around the room for a few minutes, after which time I returned and she stated she still did not see it there. Unsure what it was at this time since exam is unremarkable, it may have been a cyst that ruptured or a skin tag that got pulled off. I advised the patient to take a picture if it happens again and come in next week if it recurs, as it will be easiest to evaluate at that time. Patient agreeable to plan of care.Pap NILM HPV negative 08/2018. pelvic mass/cyst 64 y/o presents for vaginal mass that she noticed while showering. States she has no pain associated with it with no vaginal bleeding or discharge. She denies hx of abnormal PAP smears with last PAP 08/2018 NILM HPV (-) and denies hx of STDs or infections. Last menstrual ~age 49 y/o with no postmenopausal bleeding. She is not currently sexually active. Otherwise denies: Fevers/chills, night sweats, unexplained weight lossPMH: HTN, Hemorrhoids, ArthritisA: NKDAM: Hydrochlorothiazide SxHx: DeniesSocial: Tobacco use from age [age] 1 PPD, Social alcohol, No ilicit drug useFamHx: Mother and Sister with rectovaginal cancerPLAN:1. Vaginal mass ~1 cm at 5 o clock near introitus- Patient to follow up for biopsy with Dr. Madera annual exam : 3. Dora ty: Term: 2. spontaneous: 1. The patient states she uses none for control. Her menses is absent.Postmenopausal: Age: 55, Type: natural. Pertinent negatives include abnormal bleeding (hematology), abnormal vaginal bleeding, anxiety, decreased libido, depression, difficulty falling sleep, dyspareunia, history of infertility, nocturia, sexual dysfunction, sleep disturbances, urinary incontinence, urinary urgency, vaginal discharge and vaginal itching. She does drink alcohol. Dec-12-2017 REPAIR CAMERAMAN The symptoms are reported as being . The symptoms occur . 61 y/o referred for US describing 5 cm fibroid, asymptomatic, no postmenopausal bleeding.Patient reasurred and explained no need for intervention at this time.All questions answered, Mammogram and Pap smear this year-normal. pap The symptoms beg an 3 years ago and generally lasts 3 Years. The symptoms occur last pa. Pt here for pap, denies abnormal. Thinks last pap 3 yrs ago. fibroids The symptoms beg an 2 years ago and generally lasts 2 Years. The symptoms occur fibroids. Pt has history of fibroids, last seen in 2014, just had pelvic sono a few weeks ago. abnormal ultrasound The symptoms are reported as being . The symptoms occur . 59 y/o Sab 1 NSVDx2, h/o HTN, no surgical history.Seen by PCP for episode of pelvic/flank and back pain 2 months ago, that is no longer present.LMP 10 years ago. No bleeding since then,US 10-26-14: Fibroid uterus 4cm, endometrium 6 mmPatient explained US results, all questions answered. Functional Status Date Functional Assessmen t No Information Medications Administered Medication Instructions Dosage Effective Dates (start - stop) Status Comments No Drug Therapy Prescribed Instructions Date Instruction Jacquelin Grover eren Cont to f/u w PCP fo r annual mammogram Related to Encntr for obgyn nurse exam (general) (routine) w/o abn findings Repeat US prior to follow up vis it. Related to Uterine leiomyoma, unspecified location Assessments Type Assessment Date No Information Patient Care Teams Name Effective Dates (start - stop) Status Members No Information
--- NOTE | ~2024-12-27 | XR_ITS ---
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 Findings: No acute fracture or malalignment. No significant degenerative changes. Soft tissues unremarkable. Impression: No acute fracture or malalignment. Reviewed, dictated and finalized at location P. CAL MANUFACTURING TECHNICIAN Impression: No acute fracture or malalignment.
--- NOTE | ~2024-12-27 | XR_ITS ---
EXAMINATION: XR ankle RT min 3V, 12/27/2024 15:35 LIME BURNER HISTORY: ankle pain COMPARISON: No comparisons available. Findings: No acute fracture or malalignment. Moderate degenerative changes Soft tissues unremarkable. Impression: No acute fracture or malalignment. Reviewed, dictated and finalized at location P. BURNER Impression: No acute fracture or malalignment.
--- NOTE | ~2024-12-27 | XR_ITS ---
EXAMINATION: XR chest 2V, 12/27/2024 15:35 FIELD SUPPORT REPRESENTATIVE HISTORY: near syncope COMPARISON: No comparisons available. Technique: 2 views obtained. Findings: The lungs are clear, no effusion. No pneumothorax. Heart is normal size. Mediastinal and hilar contours are within normal limits. Bony thorax no acute abnormality. Impression: No acute cardiopulmonary abnormality. Reviewed, dictated and finalized at location P. D SUPPORT REPRESENTATIVE Impression: No acute cardiopulmonary abnormality.
[2024-12-27 14:55] VITALS: BP 119/62; PULSE 69
--- NOTE | 2024-12-27 14:55 | ECG_ITS ---
Test Date: 2024-12-27 14:59:37 Measurements Intervals [place] Rate: 74 P: 49 NH: 201 QRS: -24 QRSD: 124 T: 162 QT: 421 QTc: 470 Interpretive Statements SINUS RHYTHM WITH OCCASIONAL VENTRICULAR PREMATURE COMPLEXES BORDERLINE LEFT AXIS DEVIATION [QRS AXIS < -20] LEFT VENTRICULAR HYPERTROPHY AND ST-T CHANGE [VOLTAGE CRITERIA PLUS ST/T ABNORMALITY] Compared to ECG 03/03/2024 02:53:12 No significant changes Electronically Signed On 12-28-2024 18:21:22 SKIING TEACHER by Mikki Cortez M.D.
[2024-12-27 15:01] VITALS: BP 105/77; PULSE 76; RESP 18; TEMP 36.6; O2SAT 99
--- OUTSIDE RECORDS SUMMARY | 2024-12-27 15:04 | XMS_ITS | Encounter Summary ---
Author Organization [facility] Healthcare Address [address] [place] [address] Care Team Providers Care Returned Item Clerk Name Role Phone Apollo Duran MD Primary Care Provider [phone] Encounter Details Date Type Department Care Team (Late st Contact Info) Description 03/31/2024 Telephone [facility] Home Care Services [address] [place] [address] Unknown, Notinfile Social History Tobacco Use Types Packs/Day Years Used Date Smoking Tobacco: Former Cigarettes Q uit: 2012 Alcohol Use Standard Drinks/Week Comments Never 0 (1 standard drink = 0.6 oz pur e alcohol) [facility] Utilities Answer Date Recorded In the past [address], gas, oil, or water company threatened to shut off services in your home? No 03/16/2024 Social Connection and Isolation Panel Answer Date Recorded In a typical week, how many times do you talk on the phone with family, friends, or neighbors? More than three times a week 03/16/2024 How often do you get togethe r with friends or relatives? More than three times a week 03/16/2024 How often do you attend chur ch or yarsanism services? More than 4 times per year 03/16/2024 Do you belong to any clubs o r organizations such as presybeterian groups, unions, fraternal or athletic groups, or school groups? No 03/16/2024 How often do you attend meet ings of the clubs or organizations you belong to? Never 03/16/2024 Are you , , di vorced, , never , or living with a partner? Never 03/16/2024 AUDIT-C Answer Date Recorded Q1: How often do you have a drink containing alcohol? Never 03/14/2024 Q2: How many drinks containi ng alcohol do you have on a typical day when you are drinking? Patient does not drink Q3: How often do you have si x or more drinks on one occasion? Never 03/14/2024 Overall Financial Resource Strain (CARDIA) Answe r Date Recorded How hard is it for you to pa y for the very basics like food, housing, medical care, and heating? Not very hard 03/16/2024 PHQ-2 Answer Date Recorded PHQ-2 Total Score (If total score is 3 or more points, staff should administer the PHQ-9) 1 12/02/2023 Hunger Vital Sign Answer Date Recorded Within the past 12 months, y ou worried that your food would run out before you got the money to buy more. Never true 03/16/19 25 Within the past 12 months, t he food you bought just didn't last and you didn't have money to get more. Never true 03/16/2024 PRAPARE - Transportation Answer Date Re corded In the past 12 months, has l ack of transportation kept you from medical appointments or from getting medications? No 02/19 In the past 12 months, has l ack of transportation kept you from meetings, work, or from getting things needed for daily living? No 03/16/2024 PHQ-9 Answer Date Recorded PHQ-9 Total Score 10 12/02/2023 Housing Stability Vital Sign Answer Caesar e Recorded In the last 12 months, was t here a time when you were not able to pay the mortgage or rent on time? No 03/16/2024 In the past 12 months, how m any times have you moved where you were living? 0 03/16/2024 At any time in the past 12 m [facility], were you homeless or living in a long term (including now)? No 03/16/2024 Personal Safety Answer Date Recorded Have you ever been in or are you currently in a harmful physical or emotional relationship or is someone making you feel afraid or unsafe? 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
--- OUTSIDE RECORDS SUMMARY | 2024-12-27 15:04 | XMS_ITS | Clinical Summary ---
Author Organization [facility] Address [address] [place] [id number] Care Team Providers Care Radio Survey Worker Name Role Phone Unavailable Primary Care Provider Unavailabl e Social History Tobacco Use Types Packs/Day Years Used Date Smoking Tobacco: Never Assessed Comments Unknown Sex and Gender Information Value Date Recorded Sex Assigned at Not on file Legal Sex Female 1:51 PM CDT Gender Identity Not on file Sexual Orientation Not on file Plan of Treatment Health Maintenance Due Date Last Done Comments Colorectal Cancer Screening Colonoscopy (10 Years) 1955 Hepatitis C 1973 DTaP, Tdap and Td Vaccines ( 1 - Tdap) 1974 Mammogram Screening 1995 Pneumococcal Vaccine: 50+ Ye ars (1 of 1 - PCV) 2005 Zoster Vaccines (1 of 2) 2005 Annual Medicare Wellness Visit 2020 Dexa Scan (General) 2020 COVID-19 Vaccine (1 - 2024-2 6 season) 2024 Influenza Adult (#1) 2024 RSV Immunization or 60+ Years (1 - 1-dose 75+ series) 2030 Hepatitis A Vaccines Aged Out No long er eligible based on patient's age to complete this topic Meningococcal B Vaccine Aged Out No l onger eligible based on patient's age to complete this topic Meningococcal Vaccine Aged Out No carol betzy eligible based on patient's age to complete this topic RSV Immunizations Under 20 Months Aged Out No longer eligible based on patient's age to complete this topic Insurance [id number] [place] [address] [facility] MEDICARE MEDICAID
--- OUTSIDE RECORDS SUMMARY | 2024-12-27 15:05 | XMS_ITS | Clinical Summary ---
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 Gender Identity Not on file Sexual Orientation Not on file Plan of Treatment Health Maintenance Due Date Last Done Comments Hepatitis C Virus (HCV) Screening 1955 TdaP Immunization 1955 Cologuard 2000 Colonoscopy 2000 Colorectal Cancer Screening 2000 Immunochemical Fecal Occult Blood 2000 Pneumococcal Immunization (5 0+ years) (1 of 1 - PCV) 2005 Zoster Immunization (1 of 2) 2005 Influenza Immunization (#1) 2024 SARS-COV-2 Immunization (1 - season) 2024 Respiratory Syncytial Virus (RSV) Immunization (Adult) (1 - 1-dose 75+ series) 2030 Hepatitis B Immunization Aged Out No longer eligible based on patient's age to complete this topic Human Papillomavirus (HPV) Immunization Aged Out No longer eligible b ased on patient's age to complete this topic Meningococcal Immunization (ACWY) Aged Out No longer eligible based on patient's age to complete this topic Rotavirus Immunization Aged Out No lo nger eligible based on patient's age to complete this topic
--- OUTSIDE RECORDS SUMMARY | 2024-12-27 15:05 | XMS_ITS | Clinical Summary ---
Author Organization [facility] Address [address] [place] [address] Care Team Providers Care Ball Thread Machine Tender Name Role Phone Apollo Duran MD Primary Care Provider [phone] Allergies No known active allergies Medications loratadine (CLARITIN) 10 mg tablet Take 1 tablet (10 mg total) by mouth daily Active montelukast (SINGULAIR) 10 mg tablet Take 1 tablet (10 mg total) by mouth nightly Active Symbicort 80-4.5 mcg/actuation inhaler Inhale 2 puffs 2 (two) times a day 4 Active acetaminophen (TYLENOL) 500 mg tablet Take 2 tablets (1,000 mg total) by mouth 2 (two) times a day as needed for pain Active albuterol HFA (PROVENTIL HFA,VENTOLIN HFA,PROAIR HFA) 90 mcg/actuation inhalerIndicatio ns:Asthma, unspecified asthma severity, unspecified whether complicated, unspecified whether persistent Inhale 2 puffs every 6 (six) hours as needed for wheezing or shortness of breath 5 Active apixaban (ELIQUIS) 5 mg tabletIndication s:LV thrombus Take 1 tablet (5 mg total) by mouth every 12 (twelve) hours 5 Active Additional Information Patient not taking.Reason: Not available, Reported on 12/03/2024 atorvastatin (LIPITOR) 40 mg tabletIndication s:Pure hypercholesterol emia,Chronic HFrEF (heart failure with reduced ejection fraction) (HCC) Take 1 tablet (40 mg total) by mouth daily 5 Active Additional Information Patient not taking.Reason: Not available, Reported on 12/03/2024 baclofen (LIORESAL) 5 mg tabletIndication s:Lumbar radiculopathy, chronic Take 1 tablet (5 mg total) by mouth 3 (three) times a day as needed for muscle spasms 5 Active brimonidine (ALPHAGAN) 0.2 % ophthalmic solutionIndicati ons:Glaucoma, unspecified glaucoma type, unspecified laterality Administer 1 drop into both eyes 3 (three) times a day 5 Active carvediloL (COREG) 3.125 mg tabletIndication s:Essential hypertension, benign,Chronic HFrEF (heart failure with reduced ejection fraction) (HCC) Take 1 tablet (3.125 mg total) by mouth 2 (two) times a day with meals 5 Active Additional Information Patient not taking.Reason: Not available, Reported on 12/03/2024 fluticasone propionate (FLONASE) 50 mcg/actuation nasal sprayIndications :Non-seasonal allergic rhinitis, unspecified trigger Administer 1 spray into each nostril daily as needed for rhinitis or allergies 5 Active latanoprost (XALATAN) 0.005 % ophthalmic solutionIndicati ons:Glaucoma, unspecified glaucoma type, unspecified laterality Administer 1 drop into both eyes nightly 5 Active polyethylene glycol (MIRALAX) 17 gram/dose bulk powder Take 17 g by mouth daily 4 Active senna-docusate (PERICOLACE) 8.6-50 mg Take 1 tablet by mouth 2 (two) times a day 5 Active diclofenac sodium (VOLTAREN) 1 % gelIndications:Ramiro Simmons in Apply 4 g topically 4 (four) times a day 200 g 5 Active azelastine (ASTELIN) 137 mcg (0.1 %) nasal sprayIndications :Seasonal Allergic Rhinitis Administer 1 spray into each nostril daily Use in each nostril as directed 30 mL 5 Active lidocaine (LIDODERM) 5 % Place 3 patches on the skin daily 30 patch 5 Active meclizine (ANTIVERT) 25 mg tabletIndication s:Vertigo Take 1 tablet (25 mg total) by mouth 3 (three) times a day as needed for dizziness 30 tablet [address] (PROTONIX) 40 mg EC tablet Take 1 tablet (40 mg total) by mouth daily 30 tablet 5 Active spironolactone (ALDACTONE) 25 mg tabletIndication s:Chronic HFrEF (heart failure with reduced ejection fraction) (HCC),Essential hypertension, benign Take 1 tablet (25 mg total) by mouth daily 30 tablet 5 Active Additional Information Patient not taking.Reported on 12/03/2024 furosemide (LASIX) 20 mg tablet 5 Active lisinopriL (PRINIVIL,ZESTRI L) 5 mg tablet Active brimonidine-radhika loL (COMBIGAN) 0.2-0.5 % ophthalmic solution 1 drop 2 (two) times a day Active gabapentin (NEURONTIN) 300 mg capsule Take 1 capsule (300 mg total) by mouth 3 (three) times a day 5 Active naproxen (NAPROSYN) 500 mg tablet Take 1 tablet (500 mg total) by mouth 2 (two) times a day as needed 5 Active furosemide (LASIX) 40 mg tablet Take 1 tablet (40 mg total) by mouth daily 5 Active lisinopriL (PRINIVIL,ZESTRI L) 10 mg tablet Active Active Problems Problem Noted Date Diagnosed Date Acute bacterial rhinosinusitis 11/09/2024 Ankle pain 11/09/2024 Benign paroxysmal positional vertigo 11/09/2024 Chronic low back pain 11/09/2024 Community acquired pneumonia 11/09/2024 Conjunctivitis 11/09/2024 Cramp in muscle 11/09/2024 GERD (gastroesophageal reflux disease) Mass, ovarian 11/09/2024 Orthopnea 11/09/2024 Shortness of breath 11/09/2024 Otalgia 11/09/2024 Otitis media 11/09/2024 Pulmonary edema 11/09/2024 Right leg weakness 11/09/2024 Sciatica 11/09/2024 Sinusitis 11/09/2024 Torticollis 11/09/2024 Upper respiratory infection 11/09/2024 Slow transit constipation 03/24/2024 Assessment & Plan (03/24/2024 11:49 AM GIS DEVELOPER): With bloating. Currently taking Miralax daily, increase to BID & monitor. Reactive depression 03/24/2024 Assessment & Plan (03/31/2024 9:21 AM GIS DEVELOPER): Mild. Denies need for medication at this time. Monitor. Assessment & Plan (03/24/2024 11:50 AM GIS DEVELOPER): Mild. Denies need for medication at this time. Monitor. Calculus of gallbladder with out cholecystitis without obstruction 03/20/2024 Assessment & Plan (03/24/2024 11:49 AM GIS DEVELOPER): Pain improved, mild bloating & constipation noted. Continue abx to completition. Assessment & Plan (03/20/2024 12:45 PM GIS DEVELOPER): See ultrasound report March 16. In the interim I have encouraged the patient and her attending nurse to observe for signs of acute cholecystitis including jaundice, persistent nausea vomiting, fever, or increasing symptoms of right upper quadrant pain. Continue omeprazole 20 mg daily, acetaminophen a 1000 mg b.i.d. p.r.n. pain. Lab reviewed from March 19 with the attention to elevated but stable transaminitis. Plan to repeat CBC and CMP on Saturday; I am adding a script of cefdinir 300 mg p.o. b.i.d. x5 days. She has no known drug allergies Arthralgia 03/19/2024 Assessment & Plan (03/31/2024 9:21 AM GIS DEVELOPER): Richie MARCOS negative inpt. Referred to Ortho. to schedule appt with Dr. Briceno. Continue Diclofenac cream, PRN Tyl, PT/OT. Assessment & Plan (03/24/2024 11:46 AM GIS DEVELOPER): Richie MARCOS negative inpt. Referred to Ortho. to schedule appt. Continue Diclofenac cream, PRN Tyl, PT/OT. Non-seasonal allergic rhinitis 03/16/2024 CHF exacerbation 03/15/2024 Elevated liver enzymes 03/15/2024 Assessment & Plan (03/31/2024 9:22 AM GIS DEVELOPER): Improved. Resume statin at dc & fu with PCP. Assessment & Plan (03/24/2024 11:47 AM GIS DEVELOPER): Mildly elevated. Statin held. Recheck 03/30. Lumbar radiculopathy, chronic 03/15/2024 Assessment & Plan (03/20/2024 12:41 PM GIS DEVELOPER): Continue physical and occupational therapy. Continue baclofen 5 mg p.o. t.i.d. p.r.n. and Tylenol as scripted. I have reviewed the results of the x-ray of her right ankle and discuss this with her to her satisfaction. Continue lidocaine topical patches as scripted. Chronic HFrEF (heart failure with reduced ejection fraction) 11/14/2023 Assessment & Plan (03/31/2024 9:22 AM GIS DEVELOPER): Compensated. Continue Lasix + Spirolactone & montioring. NICM (nonischemic cardiomyopathy) 11/14/2023 Decreased mobility 09/16/2023 Stage 2 chronic kidney disease 09/16/2023 Cardiomyopathy, ischemic 09/09/2023 Essential hypertension, benign 09/09/2023 Pure hypercholesterolemia 09/09/2023 LV (left ventricular) mural thrombus 09/09/2023 NSTEMI (non-ST elevated myocardial infarction) 0 09/06/2023 Carpal tunnel syndrome of left wrist 05/30/2023 Abnormal stress test 11/30/2022 Resolved Problems Problem Noted Date Diagnosed Date Resolved Date Transaminitis 03/17/2024 03/24/2024 CHF (congestive heart failur e), NYHA class I, acute on chronic, combined 03/14/2024 03/31/2024 Hypercalcemia 09/16/2023 03/31/2024 Chest pain 09/07/2023 03/31/2024 Encounters Date Type Department Care Team Description 12/03/2024 10:30 AM CDT Office Visit [facility] Medicine [address] [place] [address] Karlie Rondon, APRIL Chronic bilateral low back pain with right-sided sciatica; Lumbar facet arthropathy, severe inferior; Degeneration of intervertebral disc of lumbar region, mild L3-L5 with discogenic back pain and lower extremity pain; Anterolisthesis of lumbar spine, grade 1 L4 on L5; 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; Abnormality of gait due to impairment of balance 11/26/2024 2:23 PM CDT - 11/26/2024 11:59 PM CDT Hospital Encounter [facility] [address] [place] [phone] Lumbar pain Discharge Disposition: Discharge to home or self care 11/20/2024 8:41 PM CDT - 11/20/2024 10:28 PM CDT Emergency [address] [address] Adalberto Wilde DO Chest wall pain (Primary Dx); Muscle cramps; Neuropathy Discharge Disposition: Discharge to home or self care 11/09/2024 1:45 PM CDT Office Visit [facility] [address] [place] [address] [place] [phone] Arie Blunt DO Lumbar radiculopathy (Primary Dx); Right hip pain 11/09/2024 11:48 AM CDT - 11/09/2024 11:59 PM CDT Hospital Encounter [facility] [address] [place] [id number] Right hip pain Discharge Disposition: Discharge to home or self care from Last 3 Months Medical History Medical History Date Comments CHF (congestive heart failure) (HCC) Hypertension Bronchitis Hypercholesteremia Gastric reflux Myocardial infarction (HCC) Asthma Anterolisthesis of lumbar spine DDD (degenerative disc disease), lumbar 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 Lumbar facet arthropathy Bilateral hip joint arthritis Family History Medical History Relation Name Comments Heart disease Mother Relation Name Status Comments Mother Social History Tobacco Use Types Packs/Day Years Used Date Smoking Tobacco: Former Cigarettes Q uit: 2012 Smokeless Tobacco: Never Tobacco Cessation:Counseling Given: Not Answered Alcohol Use Standard Drinks/Week Comments Never 0 (1 standard drink = 0.6 oz pur e alcohol) [facility] Utilities Answer Date Recorded In the past 12 months has th e electric, gas, oil, or water company threatened [...] often do you attend chur ch or denominational services? More than 4 times per year 03/16/2024 Do you belong to any clubs o r organizations such as pentecostalism groups, unions, fraternal or athletic groups, or school groups? No 03/16/2024 How often do you attend meet ings of the clubs or organizations you belong to? Never 03/16/2024 Are you , , di vorced, , never , or living with a partner? Never 03/16/2024 Overall Financial Resource Strain (CARDIA) Answe r [...] any time in the past 12 [facility], were you homeless or living in a prison (including now)? No 03/16/2024 AUDIT-C Answer Date Recorded Q1: How often do you have a drink containing alc ohol? Never 12/03/2024 Average Number of Drinks Not on file 025 Q3: How often do you have si x or more drinks on one occasion? Never 12/03/2024 Personal Safety Answer Date Recorded Have you ever been in or are you currently in a harmful physical or emotional relationship or is someone making you feel afraid or unsafe? Denies 11/20/2024 Comments No Sex and Gender Information Value Date Recorded Sex Assigned at Not on file Legal Sex Female 6:58 PM GIS DEVELOPER Gender Identity Not on file Sexual Orientation Not on file Occupation Industry Job Start Date Job End Date retired Not on file Not on file Not on file Last Filed Vital Signs Vital Sign Reading Time Taken Comments Blood Pressure 123/66 11/20/2024 10:21 PM CDT Pulse 59 11/20/2024 10:21 PM CDT Temperature 36.8 C (98.2 F) 11/20/2024 10:21 PM CDT Respiratory Rate 20 11/20/2024 10:21 PM CDT Oxygen Saturation 100% 11/20/2024 10:21 PM CDT Inhaled Oxygen Concentration - - Weight 66.7 kg (147 lb) 12/03/2024 10:25 AM CDT Height 157.5 cm (5' 2) 12/03/2024 10:25 AM CDT Body Mass Index 26.89 12/03/2024 10:25 AM CDT Plan of Treatment Health Maintenance Due Date Last Done Comments Breast Cancer Screening-Mammogram 1955 Colon Cancer Screening-Colonoscopy 1955 Osteoporosis Screening-Bone Density Scan 1955 DTaP/Tdap/Td Vaccine (1 - Tdap) 1966 Hepatitis B Screening 1973 Pneumococcal vaccine 65+ (1 of 2 - PCV) 1974 Zoster Vaccine (1 of 2) 2005 Well Visit 65+ 2020 Influenza Vaccine (#1) 2024 Depression Screening 12/01/2024 12/02/2023, 12/02/19 Fall Risk Assessment 03/18/2025 03/18/2024 Hepatitis C Screening Completed 03/14/2024 Medical Devices Implanted Type Area 4Th Grade Teacher Device Identifier Shelf Expiration Date Model / Serial / Lot [employer] Angio-Seal Vip 6fr Closere Device [id number] - [id number] Implanted:Qty: 1 on 09/09/2023 by Kd Dalal MD at [facility] [employer] [id number] 04/21/2024 [id number] / / [id number] Procedures Procedure Name Priority Date/Time Associated Diagnosis Comments XR SPINE LUMBAR W BENDING 6 OR MORE VIEWS Schedule Routine, Read Routine (OP Routine) 11/26/2024 2:55 PM CDT Lumbar pain TROPONIN T HIGH-SENSITIVITY 6-HOUR Timed 11/20/2024 8:52 PM CDT TROPONIN T HIGH-SENSITIVITY 4-HR Timed 11/20/2024 7:09 PM CDT TROPONIN T HIGH-SENSITIVITY 2-HOUR Timed 11/20/2024 5:29 PM CDT XR CHEST 1 VIEW ED 11/20/2024 3:15 PM CDT EGFR STAT 11/20/2024 3:09 PM CDT DIFFERENTIAL AUTO STAT 11/20/2024 3:0 9 PM CDT TROPONIN T HIGH-SENSITIVITY SERIES (BASELINE, 2HR, 4HR, 6HR) STAT 11/20/2024 3:09 PM CDT COMPREHENSIVE METABOLIC PANEL STAT 11/20/2024 3:09 PM CDT CBC WITH AUTO DIFFERENTIAL STAT 11/20/2024 3:09 PM CDT ECG 12-LEAD STAT 11/20/2024 3:02 PM CDT XR HIP RIGHT W PELVIS 2 OR 3 VIEWS Schedule Routine, Read Routine (OP Routine) 11/09/2024 11:53 AM CDT Right hip pain HEPATITIS PANEL, ACUTE Routine 03/14/2024 6:45 PM GIS DEVELOPER from Last 3 Months or Most Recently Relevant to Health Maintenance Results * XR Spine Lumbar W Bending 6 or More Views (11/26/2024 2:55 PM CDT) Anatomical Region Laterality Modality Spine N/A Computed Radiogr aphy 11/28/2024 12:3 0 PM CDT Narrative 11/28/2024 12:31 PM CDT EXAM DESCRIPTION: 1. XR SPINE LUMBAR W BENDING 6 OR MORE VIEWS REASON FOR STUDY: pain Pt sts: right sided lower back pain that radiates down right leg X several months, pain when clothes touch, right leg tingling and numbness, left foot tingling and numbness, history of fall X several years ago, denies surgery FINDINGS: 6 views submitted with comparison 11/16/2023. No acute fracture. Grade 1 anterolisthesis of L4 on L5. Mild L3-L5 degenerative disc disease with severe inferior lumbar facet osteoarthritis. Flexion-extension views demonstrate no exacerbation of the listhesis. L5-S1 fusion noted. Bilateral hip osteoarthritis. IMPRESSION: 1. Mild L3-L5 degenerative disc disease with severe inferior lumbar facet osteoarthritis. 2. Grade 1 anterolisthesis of L4 on L5. THIS IS AN ELECTRONICALLY VERIFIED FINAL REPORT 11/28/2024 12:31 PM - Electronically signed by Sander Jay M.D. T: Report ID: [id number] Reading Location: [id number] Procedure Note Sander Jay MD - 11/28/2024 EXAM DESCRIPTION: 1. XR SPINE LUMBAR W BENDING 6 OR MORE VIEWS REASON FOR STUDY: pain Pt sts: right sided lower back pain that radiates down right leg X several months, pain when clothes touch, right leg tingling and numbness, leftfoot tingling and numbness, history of fall X several years ago, denies surgery FINDINGS: 6 views submitted with comparison 11/16/2023. No acute fracture. Grade 1 anterolisthesis of L4 on L5. Mild L3-L5 degenerative disc disease with severe inferior lumbar facetosteoarthritis. Flexion-extension views demonstrate no exacerbation of the listhesis.L5-S1 fusion noted. Bilateral hip osteoarthritis. IMPRESSION: 1. Mild L3-L5 degenerative disc disease with severe inferior lumbarfacet osteoarthritis. 2. Grade 1 anterolisthesis of L4 on L5. THIS IS AN ELECTRONICALLY VERIFIED FINAL REPORT 11/28/2024 12:31 PM - Electronically signed by Sander Jay M.D. T: Report ID: [id number] Reading Location: [place] [address] us Karlie Rondon HAIRMASTERS MANAGER IMG XR PROCEDURES Final Res ult * (ABNORMAL) Troponin T high-sensitivity 6-hour (11/20/2024 8:52 PM CDT) Trop T hs 52(H) <=14 ng/L Comment: Interpretive Data For further hscTnT resources including the diagnostic algorithm and an aid in interpretation, copy and paste this link: [email or web address] Current Interpretive Data last revised 2019. Trop T hs delta -6 ng/L KAY BAINS Trop T hs interp Equivocal KAY BAINS Blood 11/20/2024 8:52 PM CDT 11/20/2024 8:56 PM CDT us Adam Garcia MD LAB BLOOD ORDERABLE S Final Result KAY BAINS [address] Department [place] [address] * (ABNORMAL) Troponin T high-sensitivity 4-hour (11/20/2024 7:09 PM CDT) Trop T hs 56(H) <=14 ng/L Comment: Interpretive Data For further hscTnT resources including the diagnostic algorithm and an aid in interpretation, copy and paste this link: [email or web address] Current Interpretive Data last revised 2019. Trop T hs delta -2 ng/L [facility] Trop T hs interp Insignificant [facility] Blood 11/20/2024 7:09 PM CDT 11/20/2024 7:12 PM CDT us Adam Garcia MD LAB BLOOD ORDERABLE S Final Result Performing Organization Address [facility]/ZIP Co de Phone Number JEANETTE[address] [place] [address] * (ABNORMAL) Troponin T high-sensitivity 2-hour (11/20/2024 5:29 PM CDT) Pathologist [facility] Trop T hs 59(H) <=14 ng/L Comment: Interpretive Data For further hscTnT resources including the diagnostic algorithm and an aid in interpretation, copy and paste this link: [email or web address] Current Interpretive Data last revised 2019. Trop T hs delta 1 ng/L [facility] Trop T hs interp Insignificant [facility] Blood 11/20/2024 5:29 PM CDT 11/20/2024 5:33 PM CDT us Adam Garcia MD LAB BLOOD ORDERABLE S Final Result [address] [place], [place] [id number] * XR Chest 1 Vw Portable (If patient hemodynamically UNstable or UNable to ambulate) (11/20/2024 3:15PM CDT) Anatomical Region Laterality Modality Body, Chest N/A Computed Radiogr aphy 11/20/2024 3:18 PM CDT Narrative 11/20/2024 3:20 PM CDT EXAM DESCRIPTION: XR CHEST 1 VIEW REASON FOR STUDY: chest pain Pt chart sts: evaluation of chest tightness and dizziness that started this morning. TECHNIQUE: 1 radiographic view(s) of the chest. COMPARISON: 11/16/2023 FINDINGS: LUNGS: No focal opacity, pleural effusion, or pneumothorax. HEART/MEDIASTINUM: Cardiac silhouette is enlarged, unchanged. Mediastinal and hilar contours appear normal. LINES/TUBES: None. BONES: No acute osseous abnormality. IMPRESSION: No acute cardiopulmonary abnormality. Unchanged cardiomegaly. THIS IS AN ELECTRONICALLY VERIFIED FINAL REPORT 11/20/2024 3:20 PM - Electronically signed by Errol TRAN T: Report ID: [id number] Reading Location: [id number] Procedure Note Errol Boykin MD - 11/20/2024 EXAM DESCRIPTION: XR CHEST 1 VIEW REASON FOR STUDY: chest pain Pt chart sts: evaluation of chest tightness and dizziness that startedthis morning. TECHNIQUE: 1 radiographic view(s) of the chest. COMPARISON: 11/16/2023 FINDINGS: LUNGS: No focal opacity, pleural effusion, or pneumothorax. HEART/MEDIASTINUM: Cardiac silhouette is enlarged, unchanged.Mediastinal and hilar contours appear normal. LINES/TUBES: None. BONES: No acute osseous abnormality. IMPRESSION: No acute cardiopulmonary abnormality. Unchanged cardiomegaly. THIS IS AN ELECTRONICALLY VERIFIED FINAL REPORT 11/20/2024 3:20 PM - Electronically signed by Errol Boykin M.D. KR T: Report ID: [id number] Reading Location: [id number] Adalberto Wilde DO IMG XR PROCEDURES Final Result * (ABNORMAL) Troponin T high-sensitivity series (baseline, 2hr, 4hr, 6hr) (11/20/2024 3:09 PM CDT) Trop T hs 58(H) <=14 ng/L Comment: Interpretive Data For further hscTnT resources including the diagnostic algorithm and an aid in interpretation, copy and paste this link: [email or web address]/show/[email or web address] Current Interpretive Data last revised 2019. Blood 11/20/2024 3:09 PM CDT 11/20/2024 3:11 PM CDT Adalberto Wilde DO LAB BLOOD ORDERABLES Final Res ult Performing Organization Address [facility] Co de Phone Number KAY [address] [place], [place] [id number] * (ABNORMAL) eGFR (11/20/2024 3:09 PM CDT) eGFR 55(L) >=60 mL/min/1. 73 m2 Comment: Interpretive Data Reference Interval Normal >/= 90 mL/min/1.73m2 Mildly decreased* 60 - 89 mL/min/1.73m2 Mildly to moderately decreased 45 - 59 mL/min/1.73m2 Moderately to severely decreased 30 - 44 mL/min/1.73m2 Severely decreased 15 - 29 mL/min/1.73m2 Kidney Failure < 15 mL/min/1.73m2 *Relative to young adult level Estimated glomerular filtration rate is determined by the 2020 CKD-EPI equation recommended by the National Kidney Foundation (A Unifying Approach to GFR Estimation: Recommendations of the NKF-ASK Task Force on Reassessing the Inclusion of Race in Diagnosing Kidney Disease, JASN 2020). The CKD-EPI equation should not be used for patients with unstable renal function and has not been validated in children and those over 70. Current interpretive data was last reviewed 2020. Blood 11/20/2024 3:09 PM CDT 11/20/2024 3:11 PM CDT us Adalbertocherie Wilde DO LAB BLOOD ORDERABLES Final Res ult Performing Organization Address City/[facility]/ZIP Co de Phone Number JEANETTE[address] [place] [address] * Differential, auto (11/20/2024 3:09 PM CDT) Pathologist [facility] Neutrophil abs 3.13 1.50 - 6.50 K/cumm Imm gran abs 0.01 0.00 - 0.10 K/cumm [facility] Lymphocyte abs 1.79 0.80 - 3.30 K/cumm [facility] Monocyte abs 0.60 0.20 - 0.80 K/cumm [facility] Eosinophil abs 0.21 0.00 - 0.50 K/cumm [facility] Basophil abs 0.05 0.00 - 0.10 K/cumm [facility] Neutrophil pct 54.0 % [facility] Comment: Interpretive Data Percent cell count reference ranges are not reported, since discordance with absolute values may lead to misinterpretation of CBC data. Current Interpretive Data was last revised on 2017. Imm gran pct 0.2 % [facility] Comment: Interpretive Data Percent cell count reference ranges are not reported, since discordance with absolute values may lead to misinterpretation of CBC data. Current Interpretive Data was last revised on 2017. Lymphocyte pct 30.9 % [facility] Comment: Interpretive Data Percent cell count reference ranges are not reported, since discordance with absolute values may lead to misinterpretation of CBC data. Current Interpretive Data was last revised on 2017. Monocyte pct 10.4 % [facility] Comment: Interpretive Data Percent cell count reference ranges are not reported, since discordance with absolute values may lead to misinterpretation of CBC data. Current Interpretive Data was last revised on 2017. Eosinophil pct 3.6 % [facility] Comment: Interpretive Data Percent cell count reference ranges are not reported, since discordance with absolute values may lead to misinterpretation of CBC data. Current Interpretive Data was last revised on 2017. Basophil pct 0.9 % [facility] Comment: Interpretive Data Percent cell count reference ranges are not reported, since discordance with absolute values may lead to misinterpretation of CBC data. Current Interpretive Data was last revised on 2017. Blood 11/20/2024 3:09 PM CDT 11/20/2024 3:11 PM CDT Adalberto Wilde DO LAB BLOOD ORDERABLES Final Res ult Performing Organization Address City/[facility]/ZIP Co de Phone Number KAY [address] [employer] [address] * (ABNORMAL) CBC with auto differential (11/20/2024 3:09 PM CDT) [facility] WBC 5.79 3.80 - 9.90 K/cumm Hgb 11.1(L) 11.9 - 15.5 g/dL [facility] Hct 34.6(L) 35.6 - 45.5 % [facility] Plt 255 150 - 400 K/cumm [facility] MPV 9.5 9.1 - 12.3 fL [facility] RBC 3.89(L) 3.90 - 5.20 M/cumm [facility] MCV 88.9 81.3 - 96.4 fL [facility] MCH 28.5 27.1 - 33.3 pg [facility] MCHC 32.1(L) 32.3 - 35.7 g/dL [facility] RDW CV 13.6 11.1 - 14.9 % [facility] RDW SD 43.7 35.7 - 48.1 fL [facility] NRBC abs 0.00 0.00 - 0.01 K/cumm [facility] Blood Venous blood specimen / Unknown 11/20/2024 3:09 PM CDT 11/20/2024 3:11 PM CDT Adalberto Wilde DO LAB BLOOD ORDERABLES Final Res ult KAY [address] [employer] [address] * Comprehensive metabolic panel (11/20/2024 3:09 PM CDT) [facility] Sodium 140 135 - 145 mmol/L Potassium, pl 4.0 3.3 - 4.9 mmol/L [facility] Chloride 107 97 - 110 mmol/L [facility] CO2 31 22 - 32 mmol/L [facility] Anion gap 2 2 - 15 mmol/L [facility] BUN 17 6 - 25 mg/dL [facility] Creatinine 1.09 0.60 - 1.10 mg/dL [facility] Glucose 120 70 - 199 mg/dL [facility] Comment: Interpretive Data Fasting glucose >/= 126 mg/dl is diagnostic for diabetes. Fasting is defined as no caloric intake for at least 8 hours. Fasting glucose between 100 mg/dl to 125 mg/dl is diagnostic of prediabetes. In a patient with classic symptoms of hyperglycemia or hyperglycemic crisis, a random glucose >/= 200 mg/dl is diagnostic for diabetes. In the absence of unequivocal hyperglycemia, results should be confirmed by repeat testing. The classification and Diagnosis of Diabetes Diabetes Care 2021; 46: S19-S40. Current interpretive data was last revised 2022. Calcium 9.7 8.5 - 10.3 mg/dL [facility] Bilirubin, total 0.5 0.1 - 1.2 mg/dL [facility] Protein, pl 7.0 6.5 - 8.5 g/dL [facility] Albumin 3.6 3.5 - 5.0 g/dL [facility] Alk phos 90 40 - 130 Units/L [facility] ALT 13 7 - 45 Units/L [facility] AST 22 10 - 45 Units/L [facility] Blood 11/20/2024 3:09 PM CDT 11/20/2024 3:11 PM CDT us Adalberto Wilde DO LAB BLOOD ORDERABLES Final Res ult [facility] [address] [facility] Department [place] [address] * ECG 12 lead (11/20/2024 3:02 PM CDT) Ventricular Rate EKG/Min 57 BPM [facility] Atrial Rate 57 BPM [facility] AK-Interval (MSEC) 242 ms [facility] QRS-Interval (MSEC) 110 ms [facility] QT-Interval (MSEC) 464 ms [facility] QTc 451 ms [facility] P [place] 46 degrees [facility] R [place] -21 degrees [facility] T [place] 259 degrees [facility] Diagnosis Sinus bradycardia with 1st degree A-V block with occasional Premature ventricular complexes Voltage criteria for left ventricular hypertrophy ST & T wave abnormality, consider inferolateral ischemia Abnormal ECG When compared with ECG of 14-MAR-2024 08:56, Premature ventricular complexes are now Present AK interval has increased Vent. rate has decreased BY 61 BPM T wave inversion more evident in Inferior leads Confirmed by SULTAN SHAW M.D. ([id number]) on 11/20/2024 3:42:50 PM [facility] [address] [employer] 11/20/2024 3:02 PM CDT 11/20/2024 3:42 PM CDT us Adalberto Wilde DO ECG ORDERABLES Final Result [facility] [address] [facility] * XR Hip Right 2 or 3 Views W Pelvis (11/09/2024 11:53 AM CDT) Anatomical Region Laterality Modality Lower Extremities, Hip, Pelvis Right C omputed Radiography 11/12/2024 8:44 AM CDT Narrative 11/12/2024 8:46 AM CDT EXAM DESCRIPTION: XR HIP RIGHT 2 OR 3 VIEWS W PELVIS REASON FOR STUDY: pain Increased general hip pain for 1 week, no injury TECHNIQUE: Single frontal radiograph of the pelvis is obtained with a frogleg lateral radiograph of the right hip. COMPARISON: 11/16/2023 FINDINGS: There is mild osteopenia. There is no definite evidence of acute displaced fracture or dislocation. There are degenerative changes bilateral hips with joint space narrowing, spurring, and sclerosis. There are degenerative changes visualized lower lumbar spine. There are degenerative changes bilateral sacroiliac joints with joint space narrowing and mild sclerosis. There are multiple phleboliths noted overlying the pelvis. IMPRESSION: 1. Mild osteopenia with degenerative changes of the bilateral hips without definite evidence of acute displaced fracture or dislocation. THIS IS AN ELECTRONICALLY VERIFIED FINAL REPORT 11/12/2024 8:46 AM - Electronically signed by Maya Veras D.O. PS T: Report ID: [id number] Reading Location: [id number] Procedure Note Maya Veras DO - 11/12/2024 EXAM DESCRIPTION: XR HIP RIGHT 2 OR 3 VIEWS W PELVIS REASON FOR STUDY: pain Increased general hip pain for 1 week, no injury TECHNIQUE: Single frontal radiograph of the pelvis is obtained with afrogleg lateral radiograph of the right hip. COMPARISON: 11/16/2023 FINDINGS: There is mild osteopenia. There is no definite evidence ofacute displaced fracture or dislocation. There are degenerative changesbilateral hips with joint space narrowing, spurring, and sclerosis. There are degenerative changes visualized lower lumbar spine. There aredegenerative changes bilateral sacroiliac joints with joint space narrowing and mild sclerosis. There are multiple phleboliths noted overlying the pelvis. IMPRESSION: 1. Mild osteopenia with degenerative changes of the bilateral hipswithout definite evidence of acute displaced fracture or dislocation. THIS IS AN ELECTRONICALLY VERIFIED FINAL REPORT 11/12/2024 8:46 AM - Electronically signed by Maya Veras D.O. PS T: Report ID: [id number] Reading Location: [place] [address] Arie Blunt DO IMG XR PROCEDURES Final Result * Hepatitis panel, acute Blood (03/14/2024 6:45 PM GIS DEVELOPER) Hep A IgM Nonreactive Nonreactive Comment: Interpretive Data: If Hep A IgM Ab is reported as Equivocal, a new sample should be drawn in two weeks for testing. Current interpretive data was last revised on 19. Hep B core IgM Nonreactive Nonreactive KAY Comment: Interpretive Data If HepB Core IgM Ab is reported as Equivocal, a new sample should be drawn in two weeks for testing. Current interpretive data was last revised on 19. Hep C Ab Nonreactive Nonreactive KAY Comment: Antibodies to HCV not detected. Does NOT exclude the possibility of recent exposure to HCV. Current interpretive data was last revised on 21 Interpretive Data Nonreactive: Antibodies to HCV not detected. Does NOT exclude the possibility of recent exposure to HCV. Equivocal: Equivocal for HCV antibodies. Supplemental molecular testing will be automatically performed to determine infection status in accordance with current CDC screening recommendations. Reactive: Positive for HCV antibodies. This may represent current or past HCV infection. Supplemental molecular testing will be automatically performed to determine current infection status in accordance with current CDC screening recommendations. Interpretive data was last revised on 2019. HepBsAg Nonreactive Nonreactive KAY HERSON Blood 03/14/2024 6:45 PM GIS DEVELOPER 03/14/2024 6:48 PM GIS DEVELOPER Vivian Lam NP LAB MICROBIOLOGY - GENERAL ORDERABLES Final Result KAY BAINS [address] [facility] Department [place] [address] from Last 3 Months or Most Recently Relevant to Health Maintenance Insurance [address] [id number] [facility] MEDICARE ADVANTAGE [id number] [place] [id number] [facility] MEDICARE ADVANTAGE Advance Directives For more information, please contact: [phone] * Full Code (Latest Code Status on File) Date Activated Date Inactivated Comments 03/14/2024 4:13 PM 03/18/2024 11:57 PM * Full Code Date Activated Date Inactivated Comments 09/06/2023 11:37 PM 09/10/2023 11:07 PM Care Teams Ball Thread Machine Tender Relationship Specialty Start Date End Date Apollo Duran MD [address] [place] [address] PCP - General Internal Medicine 12/12/21
[2024-12-27 15:11] LABS: Hematocrit 39.9 % (37.0-47.0); Hemoglobin 13.0 g/dL (12.0-15.0); Immature Granulocyte Percent A 0.4 % (0-0.5); Lymphocytes Absolute Auto 0.94 K/mm3 (0.9-3.2); Mean Corpuscular HGB Conc 32.6 g/dl (32-36); Mean Corpuscular Hemoglobin 28.4 pg (26-34); Mean Corpuscular Volume 87.1 fl (80-100); Nucleated Red Blood Cells Absolute Auto 0.000 K/mm3 (0.0-0.012); Nucleated Red Blood Cells Perc 0.0 % (0.0-0.2); Platelet Count Result 263 k/mm3 (150-375); Red Blood Count 4.58 M/mm3 (4.2-5.4); White Blood Count 7.3 K/mm3 (4.5-10.0)
--- NOTE | 2024-12-27 15:17 | ED.GENADULT ---
HPI - General Adult General Chief complaint: Dizziness Stated complaint: dizzy, sciatic pain Time Seen by Provider: 12/27/24 14:58 History of Present Illness HPI narrative: 69-year-old female presenting to the emergency department for evaluation for episode of injury head mass. Patient was recently started on prednisone for arthritic pain her right foot and ankle. Patient states she sat up in bed was sitting on the edge of the bed when she felt jittery and did have some onset of dizziness. Patient became concerned and called EMS. Patient reports by the time she got on to the EMS gurney she felt that her symptoms were resolved. At time of evaluation the emergency department patient denies any chest pain, shortness of breath, lightheaded or dizziness. Patient also reports the jittering as has resolved. Patient does report she is having persistent pain in her right foot and ankle but states this is chronic pain. Patient denies any recent falls or injuries. Patient states she has not had any recent imaging of the foot and ankle. Related Data Home Medications ?Medication ?Instructions ?Recorded ?Confirmed ?Last Taken ?Type furosemide 40 mg tablet 40 mg PO DAILY 12/30/18 07/08/23 Unknown History lisinopril 10 mg tablet 10 mg PO BID 12/30/18 07/08/23 Unknown History albuterol sulfate 90 mcg/actuation 2 puff inhalation Q4H PRN 07/08/23 07/08/23 Unknown History aerosol inhaler Shortness Of Breath Or Wheezing carvedilol 12.5 mg tablet 12.5 mg PO BID 07/08/23 07/08/23 Unknown History apixaban 5 mg tablet (Eliquis) mg 12/26/24 Unknown History baclofen 5 mg tablet mg 12/26/24 Unknown History spironolactone 25 mg tablet mg 12/26/24 Unknown History Allergies Allergy/AdvReac Type Severity Reaction Status Date / Time No Known Allergies Allergy Verified 12/26/24 14:22 Review of Systems Review of Systems: All systems reviewed & are unremarkable except as noted in HPI and below PMFSH Past Medical History Medical History Chronic low back pain GERD (gastroesophageal reflux disease) Sinusitis Bronchitis Asthma Hyperlipidemia Hypertension CHF (congestive heart failure) Surgical History Surgical History H/O cardiac catheterization No pertinent past surgical history Social History Social History Social History: She is disabled, 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 Her son is her emergency contact and he is local. Tobacco type: cigarettes Alcohol intake: never Substance use: never Substance use type: does not use Other substance usage details: Tried marijuana once in when she was young Do You Feel Safe in your Home?: Yes Lack of Transportation: No Lack of Food: Never True Current Housing: I Have Housing Concerned About Future Housing: No Difficulty Paying Gas/Electric Bills: No Difficulty Paying for Meds: No Currently Unemployed: No Education: High School Diploma/GED Difficulty w/ Childcare or Family Care: No Living arrangements: alone Additional living arrangements comments: Lives with her dog Occupation/Education: unemployed Additional occupation/education comments: Disabled Gender identity (if verbalized by the patient): Female Spiritual care concerns: No Exam Narrative: APPEARANCE: Well appearing, no pain, no distress, well-nourished. HEAD: normocephalic, atraumatic. EYES: PERRLA/EOMI, conjunctivae clear. NOSE: Normal no drainage EARS:TMS clear with good light reflex. THROAT: Pharynx clear, no exudate. NECK: Supple. No adenopathy, no masses. RESPIRATORY: Airway patent, respirations nonlabored. Clear to auscultation bilaterally, no rales, rhonchi, wheezing. CARDIOVASCULAR: Regular rate and rhythm without murmurs rubs or gallops. ABDOMINAL: Soft, nontender, nondistended, normal bowel sounds MUSCULOSKELETAL: Moves all extremities. Strength/ROM intact, No edema, No calf tenderness. NEURO: Alert. Cranial nerves II through XII intact. Good gait. Good coordination SKIN: Warm, dry. Normal Color Course Vital Signs Vital signs: Vital Signs Pulse Rate 69 12/27/24 14:55 Blood Pressure 119/62 12/27/24 14:55 Temperature 97.8 F 12/27/24 15:01 Pulse Rate 72 12/27/24 17:33 Respiratory Rate 20 12/27/24 17:33 Blood Pressure 124/72 12/27/24 17:33 Pulse Oximetry 100 12/27/24 17:33 Oxygen Delivery Room Air 11/09/25 15:01 Medical Decision Making MDM Narrative Medical decision making narrative: 69-year-old female present to the emergency department for evaluation for episode of tenderness. Patient is on a current 5 day steroid burst for inflammation her foot and ankle. Patient states that she was having some difficulty sleeping last night as well. The symptoms do seem consistent with her recently started the prednisone. Patient is currently afebrile no leukocytosis and hemoglobin of 13. Patient has a mild DEJUAN compared to her baseline with a creatinine of 1.1 and patient was treated with a 500 mL fluid bolus. On re-evaluation patient states she does feel improved and denies any complaints at this time. Patient is x-ray of foot ankle and chest were negative. Differential Diagnosis Differential Diagnosis: Arthritis, gout, dehydration, adverse medication reaction, UTI, COVID, RSV, influenza, near syncope, vertigo Vital Signs Vital Signs: Vital Signs Pulse Rate 69 12/27/24 14:55 Blood Pressure 119/62 12/27/24 14:55 Temperature 97.8 F 12/27/24 15:01 Pulse Rate 72 12/27/24 17:33 Respiratory Rate 20 12/27/24 17:33 Blood Pressure 124/72 12/27/24 17:33 Pulse Oximetry 100 12/27/24 17:33 Oxygen Delivery Room Air 12/27/24 15:01 Lab Data Lab results reviewed: Yes I reviewed the patient's lab results. 12/27/24 15:06 12/27/24 15:06 Labs: Lab Results 12/27/24 Range/Units 15:06 WBC 7.3 (4.5-10.0) K/mm3 RBC 4.58 (4.2-5.4) M/mm3 Hgb 13.0 (12.0-15.0) g/dL Hct 39.9 (37.0-47.0) % MCV 87.1 (80-100) fl MCH 28.4 (26-34) pg MCHC 32.6 (32-36) g/dl RDW 13.7 (11.5-14.5) % Plt Count 263 (150-375) k/mm3 MPV 9.8 (7.4-10.4) fl Immature Gran % (Auto) 0.4 (0-0.5) % Neut % (Auto) 82.7 H (45.5-73.1) % Lymph % (Auto) 12.9 L (18.3-44.2) % Edgar % (Auto) 3.2 (2.6-8.5) % Eos % (Auto) 0.4 (0-4.4) % Baso % (Auto) 0.4 (0.2-1.2) % Lymph # (Auto) 0.94 (0.9-3.2) K/mm3 Edgar # (Auto) 0.2 (0.1-0.6) K/mm3 Eos # (Auto) 0.0 (0-0.3) K/mm3 Baso # (Auto) 0.0 (0.0-0.1) K/mm3 Abs Immat Gran (auto) 0.03 (0.00-0.031) K/mm3 Absolute Neuts (auto) 6.0 (1.3-6.7) K/mm3 Absolute Nucleated RBC 0.000 (0.0-0.012) K/mm3 Nucleated RBC % 0.0 (0.0-0.2) % Sodium 138 (137-145) mmol/L Potassium 3.8 (3.4-5.0) mmol/L Chloride 106 (98-107) mmol/L Carbon Dioxide 26 (22-30) mmol/L Anion Gap 6 (4-12) mmol/L BUN 17 (7-17) mg/dL Creatinine 1.11 H (0.7-1.0) mg/dL Estim Creat Clear Calc 41 ml/min Estimated GFR 49 L (59 - ) Glucose 131 H (65-110) mg/dL Calcium 9.9 (8.4-10.2) mg/dL Total Bilirubin 0.9 (0.2-1.3) mg/dL AST 32 (14-36) U/L ALT 21 (6-35) U/L Alkaline Phosphatase 111 (38-126) U/L Total Protein 8.7 H (6.3-8.2) g/dL Albumin 4.4 (3.5-5.1) g/dL Imaging Data Radiologist's impression: Impressions Chest X-Ray 12/27/24 16:11 Impression: No acute cardiopulmonary abnormality. Ankle X-Ray 12/27/24 16:21 Impression: No acute fracture or malalignment. Foot X-Ray 12/27/24 16:22 Impression: No acute fracture or malalignment. Discharge Plan Discharge Clinical Impression: Adverse reaction to drug, Pain in joint involving ankle and foot Patient Disposition: Home Condition: Stable Instructions: Antibiotic Form Additional Instructions: Have close follow-up with your primary care physician. If you have any worsening symptoms then please call or return the emergency department. Patient Language: Tajik Prescriptions: No Action spironolactone 25 mg tablet Eliquis 5 mg tablet prednisone 20 mg tablet 40 mg PO DAILY 5 Days Qty: 10 0RF baclofen 5 mg tablet furosemide 40 mg Tablet 40 mg PO DAILY lisinopril 10 mg Tablet 10 mg PO BID carvedilol 12.5 mg tablet 12.5 mg PO BID albuterol sulfate 90 mcg/actuation HFA aerosol inhaler 2 puff INHALATION Q4H PRN (Reason: Shortness Of Breath Or Wheezing) atorvastatin 40 mg Tablet 40 mg PO DAILY Qty: 30 0RF cyclobenzaprine 10 mg tablet 10 mg PO TID PRN (Reason: muscle spasm) Qty: 20 0RF Follow-up/Referrals: UNKNOWN,DOCTOR [Primary Care Provider]
[2024-12-27 15:23] LABS: Alanine Aminotransferase 21 U/L (6-35); Albumin Level 4.4 g/dL (3.5-5.1); Alkaline Phosphatase 111 U/L (38-126); Anion Gap 6 mmol/L (4-12); Aspartate Amino Transferase 32 U/L (14-36); Bilirubin,Total 0.9 mg/dL (0.2-1.3); Blood Urea Nitrogen 17 mg/dL (7-17); Calcium 9.9 mg/dL (8.4-10.2); Carbon Dioxide 26 mmol/L (22-30); Chloride 106 mmol/L (98-107); Estimated CRCL calculation 41 ml/min; Estimated Glomerular Filt Rate 49; Glucose 131 mg/dL (65-110); Potassium 3.8 mmol/L (3.4-5.0); Sodium 138 mmol/L (137-145); Total Protein 8.7 g/dL (6.3-8.2)
[2024-12-27 16:00] VITALS: BP 122/61; PULSE 73; RESP 18; O2SAT 100
[2024-12-27] MEDS: SODIUM CHLORIDE 0.9% IV 500 ML 999 ML IV CONT (16:17)
[2024-12-27 16:18] VITALS: BP 122/61; BP 128/79; PULSE 69; PULSE 85
[2024-12-27 17:33] VITALS: BP 124/72; PULSE 72; RESP 20; O2SAT 100
== END 2024-12-27 18:00 | disposition home or self-care (01) ==
PROVIDERS: Emergency Medicine; Emergency Provider Emergency Medicine
DX: R42 Dizziness and giddiness (principal); T38.0X5A Adverse effect of glucocorticoids and synthetic analogues, initial encounter; M25.571 Pain in right ankle and joints of right foot; G89.29 Other chronic pain; M54.50 Low back pain, unspecified; K21.9 Gastro-esophageal reflux disease without esophagitis; E78.5 Hyperlipidemia, unspecified; I11.0 Hypertensive heart disease with heart failure; I50.9 Heart failure, unspecified
CPT/HCPCS: 36415; 71046; 73610; 73630; 80053; 85025; 93005; 96360; 99284; J7040

== ENCOUNTER 2025-01-30 10:18 | Emergency (ER) | payer MEDICARE, MEDICAID, SELFPAY ==
--- NOTE | ~2025-01-30 | XR_ITS ---
Examination: XR chest 2V Clinical History: cough and congestion x 10 day Comparison: 12/27/2024 Technique: PA and Lateral Findings: Unchanged cardiomegaly. Lungs clear. No acute bony abnormality. IMPRESSION: 1. No acute cardiopulmonary findings. Reviewed, dictated and finalized at location R. TECH
--- NOTE | 2025-01-30 10:29 | ED.URI ---
HPI - URI/Sore Throat General Chief Complaint: Upper Respiratory Infection Stated Complaint: cough/congestion Time Seen by Provider: 01/30/25 10:29 Source: patient, RN notes reviewed and old records reviewed Mode of arrival: ambulatory Limitations: no limitations History of Present Illness HPI Narrative: 69-year-old female presents to the [facility] with complaints of cough, congestion, nasal congestion S started 10 days ago. Reports that when she coughs she gets pressure in her chest. Denies any treatment prior to arrival. Patient reports the 1st day he had a sore throat. Denies fevers, denies chest tightness, chest pain, lower leg swelling. Denies any shortness of breath Onset (ago): day(s) (10) Treatments prior to arrival: none Related Data Home Medications ?Medication ?Instructions ?Recorded ?Confirmed ?Last Taken ?Type furosemide 40 mg tablet 40 mg PO DAILY 12/30/18 01/30/25 Unknown History lisinopril 10 mg tablet 10 mg PO BID 12/30/18 01/30/25 Unknown History albuterol sulfate 90 mcg/actuation 2 puff inhalation Q4H PRN 07/08/23 01/30/25 Unknown History aerosol inhaler Shortness Of Breath Or Wheezing carvedilol 12.5 mg tablet 12.5 mg PO BID 07/08/23 01/30/25 Unknown History apixaban 5 mg tablet (Eliquis) mg 12/26/24 Unknown History baclofen 5 mg tablet mg 12/26/24 Unknown History spironolactone 25 mg tablet mg 12/26/24 Unknown History Allergies Allergy/AdvReac Type Severity Reaction Status Date / Time No Known Allergies Allergy Verified 01/30/25 10:25 Review of Systems Review of Systems: All systems reviewed & are unremarkable except as noted in HPI and below Constitutional: Constitutional: Reports no additional constitutional complaints ENT: Reports as per HPI, Reports sinus pain and Reports sinus pressure Cardiovascular: Cardiovascular: Reports no additional cardiovascular complaints, Denies chest pain and Denies dyspnea Respiratory: Respiratory: Reports as per HPI, Denies chest congestion, Reports cough and Denies dyspnea Musculoskeletal: Musculoskeletal: Reports no additional musculoskeletal complaints Integumentary/Breasts: Skin/Breast: Reports system reviewed and no additional complaints, except as docu PMFSH Past Medical History Medical History Chronic low back pain GERD (gastroesophageal reflux disease) Sinusitis Bronchitis Asthma Hyperlipidemia Hypertension CHF (congestive heart failure) Surgical History Surgical History H/O cardiac catheterization No pertinent past surgical history Social History Social History Social History: She is disabled, 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 Her son is her emergency contact and he is local. Smoking status: Former smoker Tobacco type: cigarettes Alcohol intake: never Substance use: never Substance use type: does not use Other substance usage details: Tried marijuana once in when she was young Lack of Transportation: No Lack of Food: Never True Current Housing: I Have Housing Concerned About Future Housing: No Difficulty Paying Gas/Electric Bills: No Difficulty Paying for Meds: No Currently Unemployed: No Education: High School Diploma/GED Difficulty w/ Childcare or Family Care: No Living arrangements: alone Additional living arrangements comments: Lives with her dog Occupation/Education: unemployed Additional occupation/education comments: Disabled Gender identity (if verbalized by the patient): Female Spiritual care concerns: No Comments At the time of my signature, I reviewed and agree with the nursing past medical, surgical, social, and family history. There is no relevant family history pertinent to the patient complaint. Exam Const: General: cooperative, healthy appearing, comfortable, no acute distress, well developed, alert and well nourished Nutritional Appearance: well nourished Orientation/consciousness: patient oriented x3 Limitations: no limitations HENMT: Head: normal to inspection Ears: hearing grossly normal bilaterally, external ears normal, TM's normal bilaterally, EAC's normal, mastoids normal and no periauricular adenopathy Face and sinus: normal facial exam, sinuses nontender and face symmetric Mouth: Yes Normal oral and palatal mucosa present, Yes lip normal, Yes tongue normal and Yes moist mucous membranes Throat: posterior oropharynx normal, uvula midline and no uvular edema Eyes: General: appearance normal, both eyes and all related structures Alignment and Position: alignment normal Neck: Neck: normal visual inspection, full ROM, no lymphadenopathy and no meningeal signs Chest: Chest palpation & inspection: normal inspection of the chest Resp: Effort & Inspection: normal respiratory effort and able to speak in complete sentences Auscultation: clear to auscultation bilaterally, no crackles, no rales, no rhonchi, no wheezes and diminished lung sounds bilateral in the lower lung johnson Cardio: Rate: regular rate Skin: General skin exam: normal color and no rashes or lesions noted Neuro: General: patient oriented x3, gait normal, moves all extremities and no meningeal signs Cognition (Neuro): normal cognition Speech: normal speech Gait exam (Neuro): Normal gait present Extrem: General: normal to inspection, full ROM, capillary refill normal and normal gait Psych: Appearance: grossly normal and well kempt Mental Status: mental status grossly normal Speech and movement: Normal speech and movement present and Clear speech present Affect: normal affect Attitude: cooperative Course Course Level of Care: Express Care Visit Vital Signs Vital signs: Vital Signs Temperature 97.4 F L 01/30/25 10:31 Pulse Rate 64 01/30/25 10:31 Respiratory Rate 16 01/30/25 10:31 Blood Pressure 129/63 01/30/25 10:31 Pulse Oximetry 100 01/30/25 10:31 Oxygen Delivery Room Air 01/30/25 10:31 Temperature 97.4 F L 01/30/25 10:31 Pulse Rate 64 01/30/25 10:31 Respiratory Rate 16 01/30/25 10:31 Blood Pressure 129/63 01/30/25 10:31 Pulse Oximetry 100 01/30/25 10:31 Oxygen Delivery Room Air 01/30/25 10:31 reviewed MDM MDM Narrative Medical decision making narrative: patient sitting in exam room patient is nontoxic, vitals are stable. Patient presents with URI symptoms for 10 days, chest x-ray with no acute findings. Patient is appropriate for outpatient treatment of chronic bronchitis with very strict signs and symptoms of proceed to the emergency room which she verbalized understanding Discharge instructions reviewed with patient, as well as provided in writing per nursing staff. The instructions also include specific and strict return/GO TO THE ER as well as f/u information. All questions have been answered, and the patient deny any further questions with discharge and discharge plan. Some parts of this dictation were generated by voice recognition software and may contain typographical and/or grammatical inaccuracies. Differential Diagnosis Differential Diagnosis: Differential diagnostic considerations for upper respiratory infection include upper respiratory infection, croup, otitis media, sinusitis, viral infection, bronchitis, influenza, pharyngitis, strep, uvulitis.? Imaging Data Radiologist's impression: ITS Impressions Chest X-Ray 01/30/25 11:13 IMPRESSION: 1. No acute cardiopulmonary findings. Examination: XR chest 2V Clinical History: cough and congestion x 10 day Comparison: 12/27/2024 Technique: PA and Lateral Findings: Unchanged cardiomegaly. Lungs clear. No acute bony abnormality. IMPRESSION: 1. No acute cardiopulmonary findings. Discharge Plan Discharge Clinical Impression: Upper respiratory infection with cough and congestion, Chronic bronchitis Patient Disposition: Home Condition: Stable Instructions: Antibiotic Form, Upper Respiratory Infection (ED) Additional Instructions: Your x-ray did not show signs of a pneumonia. use your albuterol inhaler as prescribed 3 times a day It is very important to treat your symptoms. Drink plenty of water, Gatorade, Pedialyte, ice pops or Jell-O. - Take Tylenol as needed for pain -Antihistamine medication such as Zyrtec/Claritin during the day can help improve symptoms. -doing daily nasal irrigations can help relieve pressure your sinuses. Things like a Neti pot -Use Flonase daily to help reduce the inflammation and dry up your sinuses. -You can also use Coricidin HBP. Be sure to drink plenty of water with this medication at least 8 ounces with every dose and it is important to drink 8 to 10 glasses of water per day. Water is a natural decongestant -Eat and drink things that are easy to swallow, like tea or soup, or popsicles. -Oral rinses such as: Salt water gargles and/or may use topical anesthetic (eg. Chloraseptic spray) or lozenges to relieve dryness or throat pain). -Frequent hand washing or hand language assistant is one of the best ways to prevent spread of infection. -Using a vaporizer or humidifier at night will also help thin secretions and help with coughing up phlegm. -Follow up with primary care provider in 5 days if condition is not improving - For new or worsening symptoms go directly to the nearest ER Patient Language: Belarusian Prescriptions: New amoxicillin-pot clavulanate 875-125 mg tablet 1 tablet PO Q12H Qty: 14 0RF prednisone 20 mg tablet 40 mg PO DAILY Qty: 10 0RF No Action spironolactone 25 mg tablet Eliquis 5 mg tablet baclofen 5 mg tablet furosemide 40 mg Tablet 40 mg PO DAILY lisinopril 10 mg Tablet 10 mg PO BID carvedilol 12.5 mg tablet 12.5 mg PO BID albuterol sulfate 90 mcg/actuation HFA aerosol inhaler 2 puff INHALATION Q4H PRN (Reason: Shortness Of Breath Or Wheezing) atorvastatin 40 mg Tablet 40 mg PO DAILY Qty: 30 0RF Follow-up/Referrals: Renee,[facility] [Other] - 3 Days Clinical Impression: Upper respiratory infection with cough and congestion Time of Disposition: 11:20
[2025-01-30 10:31] VITALS: BP 129/63; PULSE 64; RESP 16; TEMP 36.3; O2SAT 100
== END 2025-01-30 11:35 | disposition home or self-care (01) ==
PROVIDERS: Emergency Provider Nurse Practitioner
DX: J06.9 Acute upper respiratory infection, unspecified (principal); J42 Unspecified chronic bronchitis; I11.0 Hypertensive heart disease with heart failure; I50.9 Heart failure, unspecified; E78.5 Hyperlipidemia, unspecified; K21.9 Gastro-esophageal reflux disease without esophagitis; J45.909 Unspecified asthma, uncomplicated; Z79.01 Long term (current) use of anticoagulants
CPT/HCPCS: 71046; 99213; G0463